=== PATIENT | male | born 1945 | race Caucasian/White ===

== ENCOUNTER 2022-07-27 16:28 | Outpatient (OUT) | payer MEDICARE, SELFPAY ==
[2022-07-27 17:47] LABS: Prostate Specific Antigen Dx 1.04 ng/mL (<=4.00)
== END 2022-07-27 16:29 ==
PROVIDERS: PCP Family Medicine; Visit Provider Urology
DX: N40.1 Benign prostatic hyperplasia with lower urinary tract symptoms (principal)
CPT/HCPCS: 36415; 84153

== ENCOUNTER 2022-07-29 15:24 | Outpatient (OUT) | payer MEDICARE, SELFPAY ==
--- NOTE | 2022-07-29 14:45 | XR_ITS ---
The [address] [address] Patient Name: CLAUDINE AGUILERA MRN: [id number] date: 1945 Sex: M Assigned Patient Location: Current Patient Location: [facility] Accession/Order Number: [id number] Exam Date: 07/29/2022 14:45 Report Date: 07/30/2022 01:38 At the request of: DERRICK BUTLER Procedure: XR abdomen 1V EXAM: XR abdomen 1V 07/29/2022 2:45 PM EDT OH001 CLINICAL STATEMENT: KIDNEY STONE COMPARISON: 07/07/2021 TECHNIQUE: Single abdominal radiograph is submitted. FINDINGS: There is a 3 mm right mid renal calculus. No left-sided renal calculi are identified. The small bowel and colon are not distended. There is a nonobstructive bowel gas pattern. There is no intraperitoneal free air. There is no abnormal calcification or organomegaly detected. Multilevel changes of thoracolumbar spine scoliosis. IMPRESSION: 3 mm right mid renal calculus. No evidence of bowel obstruction or free intraperitoneal air. Electronically authenticated by: KEY HERNANDES Date: 07/30/2022 01:38
== END 2022-07-29 15:25 ==
LOC: RAD 15:25
PROVIDERS: PCP Family Medicine; Visit Provider Urology
DX: N40.1 Benign prostatic hyperplasia with lower urinary tract symptoms (principal); N20.0 Calculus of kidney
CPT/HCPCS: 74018

== ENCOUNTER 2024-02-08 08:10 | Outpatient (OUT) | payer MEDICARE, SELFPAY ==
--- NOTE | 2024-02-08 | NM_ITS ---
Patient Name: CLAUDINE AGUILERA MR#: [id number] : 1945 Exam Date: 02/08/2024 Ordering Doctor: DR JERRY ERICKSON RADIOLOGY REPORT PROCEDURE: NM SANDOVAL PERF SPECT REST STR COMPARISON: None. INDICATIONS: HIGH CHOLESTEROL, EX-SMOKER, SOB, CHEST PAIN TECHNIQUE: Exam Description: Stress/Rest one day protocol gated SPECT Rest Imagin.9 mCi Tc-99m Cardiolite IV on 02/08/2024 Stress Imaging 30.9 mCi Tc-99m Cardiolite IV on 02/08/2024 Exercise Protocol: 0.4 mg Lexiscan given IV Heart Rate (bpm): Rest: 70 Max: 93 PMHR: 64 Blood Pressure: Rest: 130/68 Max: 130/68 Symptoms: Rest and peak stress ECG findings were normal and the exercise portion of the study was normal per attending physician Dr. Clifton . For more details please see separate cardiac stress test report. FINDINGS: QUALITY OF STUDY: Excellent. PERFUSION DEFECT: None. LOCATION: N/A SIZE: N/A. SEVERITY: N/A. TYPE: N/A. WALL MOTION: Normal. LV SIZE: Normal. 56 mL. TID / TCD: None; 0.8 LVEF: Normal. Calculated EF 75%. SUMMARY: Myocardial perfusion imaging study is NORMAL. CONCLUSION: 1. Normal nuclear medicine myocardial perfusion scan. Dictated by: Beto Dietz M.D. on 02/09/2024 at 10:16 Approved by: Beto Dietz M.D. on 02/09/2024 at 10:22
[2024-02-08] MEDS: REGADENOSON 0.4 MG/5 ML SYRINGE IV (10:26)
--- NOTE | 2024-02-08 10:26 | PC.NURSE ---
Nursing Note Cardiac Stress Test Reviewed: Medication, allergies and patient history reviewed. Stress Test: [x ] Patient tolerated stress test well. [ ] Patient unable to tolerate walking on treadmill. Switched to Lexiscan stress test. [ x] No chest pain noted per patient [ ] Chest pain that resolved prior to leaving stress lab. [x ] No dyspnea noted. [ ] Dyspnea that resolved prior to leaving stress lab. [x ] Patient left stress lab asymptomatic and hemodynamically stable. [ ] Patient taken to the Emergency Room due to non-resolving symptoms following stress test. [ ] Patient achieved target heart rate. [ ] Patient unable to achieve target heart rate. [ ] Aminophylline administered as reversal agent to Lexiscan (Regadenoson). [ ] Nitro administered. Nursing Comments:
--- NOTE | 2024-02-09 06:06 | PM.STRESS ---
Stress Test Stress Test Requesting physician: JERRY SAVAGE Procedure: Lexiscan Cardiolite stress test General Information: Reason for Stress Test: Dyspnea Cardiac History and Risk Factors: Hypercholesterolemia, former smoker, unspecified vascular intervention Resting 12 - Lead Electrocardiogram: Baseline artifact. RRR 69. Incomplete RBBB. Stress Test: Protocol: Lexiscan protocol was initiated with injection of 0.4mg Lexiscan IV push followed by Cardiolite. Blood pressure: Initial & maximum: 130/68 Rate & rhythm: Patient remained in sinus rhythm during the exercise and recovery portions of the study.? The maximum heart rate was 93, which was 64% of the maximum predicted heart rate. ST-segments & T-waves: Very poor tracings overall with artifact across many leads. No gross changes noted compared to baseline. Patient response/symptoms: There were no symptoms similar to the chief complaint. Interpretation: Artifcat/poor tracings, but no gross electrocardiographical evidence of ischemia. Asymptomatic of chief complaint. Cardiolite imaging interpretation will be reported separately. Clinical correlation required.?
== END 2024-02-08 08:11 | disposition home or self-care (01) ==
LOC: NM 08:10
PROVIDERS: PCP Family Medicine; Visit Provider Physician Assistant
DX: E78.00 Pure hypercholesterolemia, unspecified (principal); Z87.891 Personal history of nicotine dependence; I25.10 Atherosclerotic heart disease of native coronary artery without angina pectoris; R07.9 Chest pain, unspecified; R06.09 Other forms of dyspnea
CPT/HCPCS: 78452; 93017; A9500; J2785

== ENCOUNTER 2024-10-24 10:38 | Outpatient (OUT) | payer MEDICARE, SELFPAY ==
--- NOTE | 2024-10-24 10:54 | ECG_ITS ---
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: : 1945 Requested By: LUIS RUEDA Order Number: [id number] Reading MD: ESTEPHANIA VELASQUEZ Measurements Intervals [place] Rate: 83 P: 32 IA: 227 QRS: -66 QRSD: 108 T: 27 QT: 357 QTc: 420 Interpretive Statements SINUS RHYTHM WITH FIRST DEGREE AV BLOCK MARKED LEFT AXIS DEVIATION [QRS AXIS < -30] INCOMPLETE RIGHT BUNDLE BRANCH BLOCK [90+ ms QRS DURATION, TERMINAL R IN V1/V2, 40+ ms S IN I/aVL/V4/V5/V6] Compared to ECG 02/28/2019 14:07:32 First degree AV block now present Left-axis deviation now present Incomplete right bundle-branch block now present Indeterminate axis no longer present Electronically Signed On 10-25-2024 13:51:40 EDT by ESTEPHANIA VELASQUEZ
--- NOTE | 2024-10-24 10:54 | XR_ITS ---
The [address] [address] Patient Name: CLAUDINE AGUILERA MRN: [id number] date: 1945 Sex: M [facility]igned [facility] Current Patient Location: [facility] Accession/Order Number: [id number] Exam Date: 10/24/2024 11:45 Report Date: 10/24/2024 12:30 At the request of: LUIS RUEDA MD Procedure: XR chest 2V PA AND LATERAL CHEST: CLINICAL HISTORY: Preoperative clearance COMPARISON: 01/27/2022 Scarring and/or atelectasis is again noted at the lung bases. There is no developing consolidation, effusion or pneumothorax. The cardiac, hilar and mediastinal silhouettes are similar. There is no vascular congestion. The visualized bony thorax is intact. There is dextroscoliotic curvature and endplate spurring. XR/XR chest 2V IMPRESSION: MILD CHRONIC CHANGES. NO ACUTE FINDINGS. Impression dictated by: Tonya Knox M.D. 10/24/2024 12:30 PM Dictation Location: [place] [address] Electronically authenticated by: [id number] Y Date: 10/24/2024 12:30
[2024-10-24 12:04] LABS: Hematocrit 48.6 % (42.0-54.0); Hemoglobin 16.5 g/dL (14.0-18.0); Immature Granulocytes Abs Auto 0.04 10^3/uL (0.00-0.03); Immature Granulocytes Pct Auto 0.3 % (0.0-0.5); Lymphocytes Absolute Auto 1.6 10^3/uL (1.2-3.8); Mean Corpuscular HGB Conc 34.0 g/dL (29.9-35.2); Mean Corpuscular Hemoglobin 32.1 pg (25.9-34.0); Mean Corpuscular Volume 94.6 fL (80.0-94.0); Platelet Count 178 10^3/uL (150-450); Red Blood Count 5.14 10^6/uL (4.70-6.10); White Blood Count 13.7 10^3/uL (4.0-11.0)
[2024-10-24 12:10] LABS: INR 1.06; Partial Thromboplastin Time 27.9 sec (22.3-36.2); Prothrombin Time 11.2 sec (9.0-11.6)
[2024-10-24 12:14] LABS: Anion Gap 13.6; Blood Urea Nitrogen 18.0 mg/dL (7.0-18.0); Calcium 9.5 mg/dL (8.5-10.1); Carbon Dioxide 27.1 mmol/L (21.0-32.0); Chloride 105 mmol/L (98-107); Estimated GFR (African America >60 (>=60 mL/min/1.73m^2); Estimated GFR (Non-African Ame >60 (>=60 mL/min/1.73m^2); Glucose 94 mg/dL (74-106); Potassium 4.7 mmol/L (3.5-5.1); Sodium 141 mmol/L (136-145)
== END 2024-10-24 10:39 | disposition home or self-care (01) ==
LOC: PST 10:39
PROVIDERS: PCP Family Medicine; Visit Provider Surgery
DX: Z01.810 Encounter for preprocedural cardiovascular examination (principal); Z01.812 Encounter for preprocedural laboratory examination; Z01.818 Encounter for other preprocedural examination; K40.90 Unilateral inguinal hernia, without obstruction or gangrene, not specified as recurrent
CPT/HCPCS: 71046; 80048; 85025; 85610; 85730; 93005; G0463

== ENCOUNTER 2024-11-01 08:56 | Day surgery (SDC) | payer MEDICARE, SELFPAY ==
[2024-10-24 11:36] VITALS: BP 118/71; PULSE 95; TEMP 36.6; O2SAT 99; BMI 26.4
--- NOTE | 2024-10-24 11:47 | PM.PRESUREVA ---
History of Present Illness History of Present Illness Chief complaint: RIGHT INGUINAL HERNIA Narrative: Patient presents for presurgical testing. Please see HPI from Dr. Alston dated October 17, 2024. Review of Systems ROS Narrative Please see ROS from Dr. Alston dated October 17, 2024. [facility] Medical History (Updated 10/24/24 @ 11:43 by Jody Hill NP) Syncope ?R55 - Syncope and collapse (ICD-10) Skin cancer ?C44.90 - Unspecified malignant neoplasm of skin, unspecified (ICD-10) Dyspnea on exertion ?R06.09 - Other forms of dyspnea (ICD-10) Arthritis ?M19.90 - Unspecified osteoarthritis, unspecified site (ICD-10) Hypokalemia ?E87.6 - Hypokalemia (ICD-10) Migraine ?G43.909 - Migraine, unspecified, not intractable, without status migrainosus (ICD-10) GERD (gastroesophageal reflux disease) ?K21.9 - Gastro-esophageal reflux disease without esophagitis (ICD-10) Kidney stones ?N20.0 - Calculus of kidney (ICD-10) Epididymo-orchitis ?N45.3 - Epididymo-orchitis (ICD-10) Elevated serum cholesterol ?E78.00 - Pure hypercholesterolemia, unspecified (ICD-10) Diabetes ?E11.9 - Type 2 diabetes mellitus without complications (ICD-10) CAD (coronary artery disease) ?I25.10 - Atherosclerotic heart disease of [place] coronary artery without angina pectoris (ICD-10) BPH (benign prostatic hyperplasia) ?N40.0 - Benign prostatic hyperplasia without lower urinary tract symptoms (ICD-10) Hydrocele ?N43.3 - Hydrocele, unspecified (ICD-10) Benign localized hyperplasia of prostate with urinary obstruction ?N40.1 - Benign prostatic hyperplasia with lower urinary tract symptoms (ICD-10) ?N13.8 - Other obstructive and reflux uropathy (ICD-10) Atrophic testicle ?N50.0 - Atrophy of testis (ICD-10) Asthma ?J45.909 - Unspecified asthma, uncomplicated (ICD-10) Right inguinal hernia ?K40.90 - Unilateral inguinal hernia, without obstruction or gangrene, not specified as recurrent (ICD-10) Surgical History (Updated 10/24/24 @ 11:40 by Jody Hill NP) History of cardiac catheterization ?Z98.890 - Other specified postprocedural states (ICD-10) Hx of tonsillectomy ?Z90.89 - Acquired absence of other organs (ICD-10) H/O left inguinal hernia repair ?Z98.890 - Other specified postprocedural states (ICD-10) ?Z87.19 - Personal history of other diseases of the digestive system (ICD-10) History of extracorporeal shockwave lithotripsy (ESWL) ?Z98.890 - Other specified postprocedural states (ICD-10) H/O colonoscopy ?Z98.890 - Other specified postprocedural states (ICD-10) H/O prostate biopsy ?Z98.890 - Other specified postprocedural states (ICD-10) S/P arthroscopic knee surgery ?Z98.890 - Other specified postprocedural states (ICD-10) History of appendectomy ?Z90.49 - Acquired absence of other specified parts of digestive tract (ICD-10) S/P arterial stent ?Z95.9 - Presence of cardiac and vascular implant and graft, unspecified (ICD-10) H/O cystoscopy ?Z98.890 - Other specified postprocedural states (ICD-10) S/P TURP ?Z90.79 - Acquired absence of other genital organ(s) (ICD-10) Family History (Updated 10/24/24 @ 11:19 by Jody Hill NP) Other Family history of cancer Family history of diabetes mellitus Family history of heart disease Family history of hypertension Family history of myocardial infarction Social History (Updated 10/24/24 @ 11:08 by Jody Hill NP) Within the past year, how often did you have a drink containing alcohol: monthly or less Smoking status: Never smoker Non-prescribed substance use: denies use Highest level of school completed/degree received: high school graduate Meds Home Medications and Allergies Home Medications ?Medication ?Instructions ?Recorded ?Confirmed ?Type atorvastatin 40 mg tablet 40 mg PO DAILY 10/24/24 10/24/24 History dapagliflozin propanediol 10 mg 10 mg PO DAILY 10/24/24 10/24/24 History tablet (Farxiga) multivitamin (Daily Multi-Vitamin 1 tab PO DAILY 10/24/24 10/24/24 History tablet) potassium citrate 15 mEq (1,620 15 meq PO BID 10/24/24 10/24/24 History mg) tablet,extended release Allergies Allergy/AdvReac Type Severity Reaction Status Date / Time No Known Drug Allergies Allergy Verified 10/24/24 11:05 Exam Narrative Exam Narrative: Constitutional: Awake, alert, comfortable, well-appearing, nontoxic, interactive, vital signs as charted Head: Normocephalic, atraumatic Neck: Supple, normal appearance, normal range of motion, no meningeal signs, no lymphadenopathy Respiratory: No respiratory distress, breath sounds clear Cardiovascular: Regular rate and rhythm, strong and regular heart tones Abdomen: Nontender, normal bowel sounds, soft, no CVA tenderness, reducible right inguinal hernia Musculoskeletal: Normal gait, no swelling or edema Skin: No rashes or induration, no lesions, only visible skin inspected Neuro: No neurological deficits, normal sensation Psychiatric: Oriented ?3, normal affect Constitutional Vital Signs, click to edit/add: Last Vital Signs Temp 97.8 F 10/24/24 11:36 Pulse 95 H 10/24/24 11:36 Resp 16 10/24/24 11:36 BP 118/71 10/24/24 11:36 Pulse Ox 99 10/24/24 11:36 O2 Del Method Room Air 10/24/24 11:36 Assessment and Plan Assessment and Plan (1) Right inguinal hernia: Plan Right inguinal hernia repair with mesh scheduled with Dr. Alston November 01, 2024.
--- OUTSIDE RECORDS SUMMARY | 2024-10-25 10:20 | XMS_ITS | Encounter Summary ---
Author Organization [facility] Address [address] [place] [address] Phone Care Team Providers Care Welder Journeyman Name Role Phone Rosalia Ding MD Primary Care Provider [phone] Wesley Alston MD Unavailable [phone] Reason for Referral * Cardiovascular (Routine) - Authorized Specialty Diagnoses / Procedures Referred By Contac t Referred To Contact Diagnoses Pre-operative cardiovascular examination Procedures ECG 12 Lead David Lentz DO [address] [facility] [address] [address] Phone: tel: fax: Referral ID Status Reason Start Date Expiration Date V isits Requested Visits Authorized [id number] Authorized 10/25/2024 10/25/2025 1 1 Reason for Visit * Reason Comments New Patient Visit Pre-op Clearance Hernia [id number] cheduluis 11/01/24 * Cardiovascular (Routine) - Authorized Specialty Diagnoses / Procedures Referred By Contac t Referred To Contact Diagnoses Pre-operative cardiovascular examination Procedures ECG 12 Lead David Lentz DO [address] [facility] [address] [address] Phone: tel: fax: Referral ID Status Reason Start Date Expiration Date V isits Requested Visits Authorized [id number] Authorized 10/25/2024 10/25/2025 1 1 Encounter Details Date Type Department Care Team (Latest Contact Info) Description 10/25/2024 10:20 AM EDT Office Visit [facility] [address] [facility] [address] [place] [address] David Lentz, DO [address] [facility] [address] [place] [address] Hyperlipidemia, unspecified hyperlipidemia type; BMI 26.0-26.9,adult; Former smoker; Pre-operative cardiovascular examination Discharge Disposition: Home Social History Tobacco Use Types Packs/Day Years Used Date Smoking Tobacco: Former Cigarettes Smokeless Tobacco: Never Alcohol Use Standard Drinks/Week Comments Not Currently 0 (1 standard drink = 0.6 oz pur e alcohol) Sex and Gender Information Value Date Recorded Sex Assigned at Not on file Legal Sex Male 2:41 PM EST Gender Identity Not on file Sexual Orientation Not on file documented as of this encounter Last Filed Vital Signs Vital Sign Reading Time Taken Comments Blood Pressure 128/86 10/25/2024 10:36 AM EDT Pulse 90 10/25/2024 10:36 AM EDT Temperature - - Respiratory Rate - - Oxygen Saturation - - Inhaled Oxygen Concentration - - Weight 85.6 kg (188 lb 12.8 oz) 025 10:36 AM EDT Height 180.3 cm (5' 11 ) 10/25/2024 10: 36 AM EDT Body Mass Index 26.33 10/25/2024 10:36 AM EDT documented in this encounter Patient Instructions * Patient Instructions* Kristine Whelan LPN - 10/25/2024 10:20 AM EDT Please bring all medicines, vitamins, and herbal supplements with you when you come to the office. Prescriptions will not be filled unless you are compliant with your follow up appointments or have a follow up appointment scheduled as per instruction of your physician. Refills should be requested at the time of your visit. BMI was above normal measurement. Current weight: 85.6 kg (188 lb 12.8 oz) Weight change since last visit (-) denotes wt loss 188.8 lbs Weight loss needed to achieve BMI 25: 9.9 Lbs Follow up ordered as needed only Weight loss needed to achieve BMI 30: -25.8 Lbs Provided instructions on dietary changes. * Attachments The following attachments cannot be sent through Care Everywhere. * Heart Healthy Diet ([place]) documented in this encounter Progress Notes * David Lentz, DO - 10/25/2024 10:20 AM EDT Cardiology Consultation- New Consult Reason for referral: Preoperative clearance Chief Complaint Patient presents with New Patient Visit Pre-op Clearance Hernia [id number] 11/01/24 HPI: Des Leavitt is a 79 y.o. male seen in cardiology consultation at request of Dr. Alston, for preoperative risk assessment and clearance prior to right inguinal hernia surgery. The surgery itself isexceedingly low risk. Patient has no history of myocardial infarction, revascularization, stroke, thromboembolic or bleeding disorder Patient historically was previously followed by Dr. Valenzuela from 2004 through 2010. He had heartcatheterization and several stress imaging procedures performed during that time. 2006 heart catheterization revealed minimal disease and normal ventricular function. Last myocardial perfusion stresstest at [facility] was performed this past January 2024 and was normal per the report that I have reviewed. Today's ECG demonstrates normal sinus rhythm and incomplete right bundle branch block, is borderline ECG and unchanged from the past Patient presents to anesthesia and general surgery is extremely low risk for major adverse cardiac events. He can follow-up as needed with ourselves Past Medical History: He has no past medical history on file. Surgical History: He has a past surgical history that includes Hernia repair (Left); Appendectomy; Cardiac catheterization; and Colonoscopy. Family History: Family History[1] Social History: Social History Tobacco Use Smoking status: Former Types: Cigarettes Smokeless tobacco: Never Substance Use Topics Alcohol use: Not Currently Allergies: Patient has no known allergies. Current Medications: Current Outpatient Medications Medication Instructions atorvastatin (LIPITOR) 40 mg, Daily RT Farxiga 10 mg, Daily before breakfast multivitamin tablet 1 tablet, Daily potassium citrate CR (Urocit-K-15) 15 mEq ER tablet 15 mEq, 2 times daily (morning and late afternoon) Vitals: Vitals: 10/25/24 1036 BP: 128/86 BP Location: Left arm Patient Position: Sitting Pulse: 90 Weight: 85.6 kg (188 lb 12.8 oz) Height: 1.803 m (5' 11 ) EKG done in office today Review of Systems All other systems reviewed and are negative. Objective Physical Exam Constitutional: Appearance: Normal appearance. HENT: Nose: Nose normal. Neck: Vascular: No carotid bruit. Cardiovascular: Rate and Rhythm: Normal rate. Pulses: Normal pulses. Heart sounds: Normal heart sounds. Pulmonary: Effort: Pulmonary effort is normal. Abdominal: General: Bowel sounds are normal. Palpations: Abdomen is soft. Musculoskeletal: General: Normal range of motion. Cervical back: Normal range of motion. Right lower leg: No edema. Left lower leg: No edema. Skin: General: Skin is warm and dry. Neurological: General: No focal deficit present. Mental Status: He is alert. Psychiatric: Mood and Affect: Mood normal. Behavior: Behavior normal. Thought Content: Thought content normal. Judgment: Judgment normal. Assessment and Plan: 1. Hyperlipidemia, unspecified hyperlipidemia type 2. BMI 26.0-26.9,adult 3. Former smoker 4. Pre-operative cardiovascular examination Scribe Attestation By signing my name below, Kristine Madden LPN , Scribe attest that this documentation has been prepared under the direction and in the presence of Teo Lentz DO. Provider Attestation - Scribe documentation All medical record entries made by the Scribe were at my direction and personally dictated by me. Ihave reviewed the chart and agree that the record accurately reflects my personal performance of the history, physical exam, discussion and plan. [1] Family History Problem Relation Name Age of Onset Heart disease Mother Heart attack Mother Mental illness Sister Heart disease Brother Heart attack Brother documented in this encounter Plan of Treatment Not on file documented as of this encounter Procedures Procedure Name Priority Date/Time Associated Diagnosis Comments ECG 12-LEAD Routine 10/25/2024 10:20 AM EDT Pre-operative cardiovascular examination documented in this encounter Results * ECG 12 Lead (10/25/2024 10:20 AM EDT) Narrative CPACS - 10/25/2024 11:22 AM EDT Normal sinus rhythm, incomplete right bundle branch block, borderline ECG David Lentz DO ECG ORDERABLES Final Resul t CPACS documented in this encounter Visit Diagnoses Diagnosis Hyperlipidemia, unspecified hyperlipidemia type BMI 26.0-26.9,adult Former smoker Personal history of tobacco use, presenting hazards to health Pre-operative cardiovascular examination documented in this encounter Additional Health Concerns Assessment Noted Time A fall risk assessment has been complete d for the patient 10/25/2024 10:36 AM EDT documented as of this encounter Care Teams Welder Journeyman Relationship Specialty Start Date End Date Rosalia Ding MD [address] [facility] [address] [place] [address] PCP - General Family Medicine 10/25/24 Wesley Alston MD [address] [facility] [address] [place] [address] Referring Physician General Surgery 10/25/24 documented as of this encounter
--- OUTSIDE RECORDS SUMMARY | 2024-10-26 11:30 | XMS_ITS | Encounter Summary ---
Author Organization [facility] Address [address] [place] [address] Care Team Providers Care Spa Director/Finance Name Role Phone Rosalia Ding MD Unavailable Rosalia Ding MD Primary Care Provider [phone] Encounter Details Date Type Department Care Team (Late st Contact Info) Description 10/26/2024 11:30 AM EDT [facility] 110 [place] [address] Rosalia Ding MD 112 [facility] 110 [place] [address] Dysuria; Urgency of urination; Hematuria, unspecified type Social History Tobacco Use Types Packs/Day Years Used Date Smoking Tobacco: Never Alcohol Use Standard Drinks/Week Comments Never 0 (1 standard drink = 0.6 oz pur e alcohol) caffeine: no PHQ-2 Answer Date Recorded Patient Health Questionnaire-2 Score 0 06/12/2024 Sex and Gender Information Value Date Recorded Sex Assigned at Not on file Legal Sex Male 6:53 PM EDT Gender Identity Not on file Sexual Orientation Not on file documented as of this encounter Progress Notes * Kalyn Adamson LPN - 10/26/2024 11:30 AM EDT Pt stopped in to give urine sample. He admits to dysuria and urgency. Urine was sent out for culture. documented in this encounter Plan of Treatment Not on file documented as of this encounter Procedures Procedure Name Priority Date/Time Associated Diagnosis Comments POCT URINALYSIS DIPSTICK Routine 10/26/2024 11:39 AM EDT Dysuria Urgency of urination URINARY TRACT INFECTION (HTRX) Routine 10/26/2024 11:38 AM EDT Hematuria, unspecified type documented in this encounter Results * (ABNORMAL) POCT Urinalysis dipstick (10/26/2024 11:39 AM EDT) [facility] Color, UA Marysol Clarity, UA Cloudy Glucose, UA Positive Negative - 1999(110) ++++ mg/dL Comment:1999 Bilirubin, UA Negative Negative - 4(70) +++ mg/dL Ketones, UA Negative Negative - 160(16) ++++ mg/dL Spec Grav, UA 1.020 1 - 1.03 Blood, UA Positive Negative - 50 Edinson/mcL Comment:moderate pH, UA 6.0 5 - 9 Protein, UA Trace Negative - 1999(20) ++++ mg/dL Urobilinogen, UA 1.0 0.2 - 12 mg/dL Leukocytes, UA Trace Negative - 500+++ William/mcL Nitrite, UA Negative Negative - Positive Urine 10/26/2024 11:3 9 AM EDT Rosalia Ding MD POINT OF CARE TEST ENTER/EDIT OR DERABLES Final Result * (ABNORMAL) URINARY TRACT INFECTION (HTRX) (10/26/2024 11:38 AM EDT) [facility] TET B, TET M 25.361(A) 23.000 - 27.500 ppm 10/27/2024 9:02 AM EDT [facility] TET B, TET M Detected(A) 23.000 - 27.500 ppm 10/27/2024 9:02 AM EDT [facility] ACINETOBACTER BAUMANII 0 19.961 - 24.689 ppm 10/27/2024 9:02 AM EDT [facility] ACINETOBACTER BAUMANII Not Detected 19.961 - 24.689 ppm 10/27/2024 9:02 AM EDT [facility] CITROBACTER FREUNDII 0 23.000 - 32.015 ppm 10/27/2024 9:02 AM EDT [facility] CITROBACTER FREUNDII Not Detected 23.000 - 32.015 ppm 10/27/2024 9:02 AM EDT [facility] ENTEROBACTER AEROGENES, CLOACAE 0 23.000 - 32.290 ppm 10/27/2024 9:02 AM EDT [facility] ENTEROBACTER AEROGENES, CLOACAE Not Detected 23.000 - 32.290 ppm 10/27/2024 9:02 AM EDT [facility] ENTEROCOCCUS FAECALIS, FAECIUM 0 26.000 - 33.043 ppm 10/27/2024 9:02 AM EDT [facility] ENTEROCOCCUS FAECALIS, FAECIUM Not Detected 26.000 - 33.043 ppm 10/27/2024 9:02 AM EDT [facility] ESCHERICHIA COLI 0 23.000 - 28.500 ppm 10/27/2024 9:02 AM EDT [facility] ESCHERICHIA COLI Not Detected 23.000 - 28.500 ppm 10/27/2024 9:02 AM EDT [facility] KLEBSIELLA PNEUMONIAE, OXYTOCA 0 23.000 - 31.865 ppm 10/27/2024 9:02 AM EDT [facility] KLEBSIELLA PNEUMONIAE, OXYTOCA Not Detected 23.000 - 31.865 ppm 10/27/2024 9:02 AM EDT [facility] MORGANELLA MORGANII 0 19.961 - 24.689 ppm 10/27/2024 9:02 AM EDT [facility] MORGANELLA MORGANII Not Detected 19.961 - 24.689 ppm 10/27/2024 9:02 AM EDT [facility] PROTEUS MIRABILIS, VULGARIS 0 23.000 - 28.500 ppm 10/27/2024 9:02 AM EDT [facility] PROTEUS MIRABILIS, VULGARIS Not Detected 23.000 - 28.500 ppm 10/27/2024 9:02 AM EDT [facility] PSEUDOMONAS AERUGINOSA 0 23.000 - 31.801 ppm 10/27/2024 9:02 AM EDT [facility] PSEUDOMONAS AERUGINOSA Not Detected 23.000 - 31.801 ppm 10/27/2024 9:02 AM EDT [facility] STAPHYLOCOCCUS AUREUS 0 26.000 - 31.595 ppm 10/27/2024 9:02 AM EDT [facility] STAPHYLOCOCCUS AUREUS Not Detected 26.000 - 31.595 ppm 10/27/2024 9:02 AM EDT [facility] STREPTOCOCCUS AGALACTIAE (GROUP B STREP) 17.001(A) 26.000 - 32.435 ppm 10/27/2024 9:02 AM EDT [facility] STREPTOCOCCUS AGALACTIAE (GROUP B STREP) Detected(A) 26.000 - 32.435 ppm 10/27/2024 9:02 AM EDT [facility] GRAHAM ALBICANS, PARAPSILOSIS, TROPICALIS 0 23.000 - 30.347 ppm 10/27/2024 9:02 AM EDT [facility] GRAHAM ALBICANS, PARAPSILOSIS, TROPICALIS Not Detected 23.000 - 30.347 ppm 10/27/2024 9:02 AM EDT [facility] GRAHAM GLABRATA 0 23.000 - 31.618 ppm 10/27/2024 9:02 AM EDT [facility] GRAHAM GLABRATA Not Detected 23.000 - 31.618 ppm 10/27/2024 9:02 AM EDT [facility] GRAHAM KRUSEI 0 23.000 - 30.873 ppm 10/27/2024 9:02 AM EDT [facility] GRAHAM KRUSEI Not Detected 23.000 - 30.873 ppm 10/27/2024 9:02 AM EDT [facility] SERRATIA MARCESCENS 0 23.000 - 31.581 ppm 10/27/2024 9:02 AM EDT [facility] SERRATIA MARCESCENS Not Detected 23.000 - 31.581 ppm 10/27/2024 9:02 AM EDT [facility] STREPTOCOCCUS PYOGENES (GROUP A STREP) 0 19.961 - 24.689 ppm 10/27/2024 9:02 AM EDT [facility] STREPTOCOCCUS PYOGENES (GROUP A STREP) Not Detected 19.961 - 24.689 ppm 10/27/2024 9:02 AM EDT [facility] STAPHYLOCOCCUS EPIDERMIDIS, HAEMOLYTICUS, LUGDUNENSIS, SAPROPHYTICUS (URINA 0 19.961 - 24.689 ppm 10/27/2024 9:02 AM EDT [facility] STAPHYLOCOCCUS EPIDERMIDIS, HAEMOLYTICUS, LUGDUNENSIS, SAPROPHYTICUS (URINA Not Detected 19.961 - 24.689 ppm 10/27/2024 9:02 AM EDT [facility] STAPHYLOCOCCUS EPIDERMIDIS, HAEMOLYTICUS, LUGDUNENSIS, SAPROPHYTICUS (URINA 0 19.961 - 24.689 ppm 10/27/2024 9:02 AM EDT [facility] STAPHYLOCOCCUS EPIDERMIDIS, HAEMOLYTICUS, LUGDUNENSIS, SAPROPHYTICUS (URINA Not Detected 19.961 - 24.689 ppm 10/27/2024 9:02 AM EDT [facility] Urine 10/26/2024 11:3 8 AM EDT 10/27/2024 2:33 AM EDT us Rosalia Ding MD LAB BLOOD ORDERABLES Final Resul t [facility] [address] [id number] documented in this encounter Visit Diagnoses Diagnosis Dysuria Urgency of urination Hematuria, unspecified type documented in this encounter Care Teams Spa Director/Finance Relationship Specialty Start Date End Date Rosalia Ding MD 112 [facility] 110 [place] [address] PCP - ACO Reach 07/16/22 Rosalia Ding MD [address] [facility] 110 [place] [address] PCP - General Family Medicine 06/30/22 documented as of this encounter
[2024-11-01] VITALS (18 sets, daily range): BP systolic 112–141; BP diastolic 68–93; PULSE 85–97; TEMP 36.4; O2SAT 92–96; BMI 26.0
--- NOTE | 2024-11-01 | OP_ITS ---
OPERATION DATE: 11/01/2024 PREOPERATIVE DIAGNOSIS: Reducible right inguinal hernia. POSTOPERATIVE DIAGNOSIS: Reducible right inguinal hernia with indirect and direct right inguinal hernias. PROCEDURE: Right inguinal herniorrhaphy with mesh insertion. SURGEON: Wesley Alston M.D. ANESTHESIA: General with laryngeal mask airway, as well as right sided TAP block. ESTIMATED BLOOD LOSS: Less than 10 mL. INDICATIONS AND CONSENT: Patient is a 79-year-old male with several year history of reducible right inguinal hernia. He has had a remote history of a left inguinal hernia. Indications, risks, benefits, alternatives of proceeding with herniorrhaphy were explained extensively to the patient, including the risks of bleeding, infection, scarring, pain, nerve injury, testicular injury, recurrent hernia, blood clot, pulmonary embolus, heart attack, anesthetic complications, need for further surgery or mesh removal. All of his questions were answered. Informed consent was obtained. PROCEDURE: Patient brought to the operating room, placed in the supine position. General anesthesia was induced. A right sided TAP block was performed by Anesthesia. The patient was then prepped and draped in the usual sterile fashion. A right groin incision was made in the area of the skin crease, above the area of the external inguinal ring, and carried down through subcutaneous tissue using sharp dissection, as well as electrocautery. Hemostasis was achieved with electrocautery. The external oblique was then opened along the direction of its fibers, down through the external inguinal ring. It was noted to be attenuated. Cord structures were mobilized and retracted. There was noted to be a direct and indirect sac straddling the inferior epigastric vessels, a pantaloon-type hernia. This was freed up from the cord structures and from the vas deferens, all the way up to the upper portion of the internal ring. Both hernias were reduced. The weakness in the floor was then imbricated with interrupted 2-0 Prolene sutures. The wound was irrigated. There was good hemostasis. The polypropylene mesh patch was then placed in the floor of the inguinal canal. The arms were placed around the cord structures and secured circumferentially using interrupted 3-0 Vicryl sutures. Care was taken to avoid undue tension on the cord structures. The wound was irrigated with antibiotic saline. There was good hemostasis. The external oblique was then closed with a running 3-0 Vicryl suture. Subcutaneous tissues were then infiltrated with 0.5% Marcaine plain. Lavern?s fascia was re- approximated with interrupted 3-0 Monocryl suture. The skin was then closed with a running 4-0 subcuticular Monocryl suture as well as skin glue. A sterile pressure dressing was applied. Sponge and needle counts were correct x3 per nursing personnel. Patient tolerated procedure well, was sent to recovery room in good condition. CC: Gabriel Villalobos
--- OUTSIDE RECORDS SUMMARY | 2024-11-01 08:59 | XMS_ITS | Encounter Summary ---
Author Organization [facility] Address [address] [place] [address] Care Team Providers Care Safety Deposit Clerk Name Role Phone Rosalia Ding MD Unavailable Rosalia Ding MD Primary Care Provider [phone] Encounter Details Date Type Department Care Team (Late st Contact Info) Description 09/08/2024 Abstract [facility] [place] [facility] [address] [facility] 110 [place] [address] Rosalia Ding MD [address] [facility] 110 [place] [address] Social History Tobacco Use Types Packs/Day Years [...] on file documented as of this encounter Plan of Treatment Not on file documented as of this encounter Visit Diagnoses Not on filedocumented in this encounter Care Teams Safety Deposit Clerk Relationship Specialty Start Date End Date Rosalia Ding MD [address] [facility] 110 [place] [address] PCP - ACO Reach 07/16/22 Rosalia Ding MD [address] [facility] 110 [place] [address] PCP - General Family Medicine 06/30/22 documented as of this encounter
--- OUTSIDE RECORDS SUMMARY | 2024-11-01 08:59 | XMS_ITS | Encounter Summary ---
Author Organization [facility] Address [address] [place] [address] Care Team Providers Care Floorman Name Role Phone Rosalia Ding MD Unavailable Rosalia Ding MD Primary Care Provider [phone] Encounter Details Date Type Department Care Team (Late st Contact Info) Description 10/27/2024 Telephone [facility] [place] [facility] [address] [facility] 110 [place] [id number] Tonya Argueta PA [address] [facility] [address] [place] [address] Social History Tobacco Use Types Packs/Day Years [...] on file documented as of this encounter Miscellaneous Notes * Telephone Encounter - DRE Katz - 10/27/2024 1:49 PM EDT Called and informed pt. * Telephone Encounter - DRE Katz - 10/27/2024 1:05 PM EDT Please let pt know that his urine culture showed a type of bacteria that Bactrim does not cover well. I sent in an alternative antibiotic for him to start. He can stop the Bactrim. documented in this encounter Plan of Treatment Not on file documented as of this encounter Visit Diagnoses Diagnosis Acute cystitis with hematuria- Primary documented in this encounter Care Teams Floorman Relationship Specialty Start Date End Date Rosalia Ding MD 112 [facility] 110 [place] [address] PCP - ACO Reach 07/16/22 Rosalia Ding MD 112 [facility] 110 [place] [address] PCP - General Family Medicine 06/30/22 documented as of this encounter
--- OUTSIDE RECORDS SUMMARY | 2024-11-01 08:59 | XMS_ITS | Encounter Summary ---
Author Organization [facility] Address [address] [place] [address] Care Team Providers Care Global Program Manager Name Role Phone Rosalia Ding MD Unavailable Rosalia Ding MD Primary Care Provider [phone] Encounter Details Date Type Department Care Team (Late st Contact Info) Description 06/12/2024 Abstract [facility] [place] [facility] [address] [place] [address] [place] [address] Rosalia Ding MD [address] [facility] [address] [place] [address] Social History Tobacco Use Types Packs/Day Years [...] on file documented as of this encounter Functional Status * Over the past 2 weeks, how often have you been bothered by any of the following problems? Question Answer Date of Assessment Author Little interest or pleasure in doing things Not at all 06/12/2024 9:00 AM EDT Dorothy Ibarra MA Feeling down, depressed, or hopeless Not at all 06/12/2024 9:00 AM EDT Dorothy Ibarra MA Patient Health Questionnaire -2 Score 0 06/12/2024 9:00 AM EDT Dorothy Ibarra MA documented as of this encounter Plan of Treatment Not on file documented as of this encounter Visit Diagnoses Not on filedocumented in this encounter Care Teams Global Program Manager Relationship Specialty Start Date End Date Rosalia Ding MD 112 [facility] 110 [place] [address] PCP - ACO Reach 07/16/22 Rosalia Ding MD [address] [address] PCP - General Family Medicine 06/30/22 documented as of this encounter
--- OUTSIDE RECORDS SUMMARY | 2024-11-01 08:59 | XMS_ITS | Encounter Summary ---
Author Organization [facility] Address [address] [place] [address] Care Team Providers Care Account Adjuster Name Role Phone Rosalia Ding MD Unavailable Rosalia Ding MD Primary Care Provider [phone] Encounter Details Date Type Department Care Team (Late st Contact Info) Description 07/30/2022 Abstract [facility] [place] [facility] [address] [facility] 110 [place] [address] Rosalia Ding MD [address] [facility] 110 [place] [address] Social History Tobacco Use Types Packs/Day Years Used Date Smoking Tobacco: Never Assessed Sex and Gender Information Value Date Recorded Sex Assigned at Not on file Legal Sex Male 6:53 PM EDT Gender Identity Not on file Sexual Orientation Not on file documented as of this encounter Plan of Treatment Not on file documented as of this encounter Visit Diagnoses Not on filedocumented in this encounter Care Teams Account Adjuster Relationship Specialty Start Date End Date Rosalia Ding MD [address] [facility] 110 [place] [address] PCP - ACO Reach 07/16/22 Rosalia Ding MD [address] [facility] 110 [place] [address] PCP - General Family Medicine 06/30/22 documented as of this encounter
--- OUTSIDE RECORDS SUMMARY | 2024-11-01 08:59 | XMS_ITS | Encounter Summary ---
Author Organization [facility] Address [address] [place] [address] Care Team Providers Care Bromination Equipment Operator Name Role Phone Rosalia Ding MD Unavailable Rosalia Ding MD Primary Care Provider [phone] Encounter Details Date Type Department Care Team (Late st Contact Info) Description 02/17/2023 Orders Only [facility] [place] [facility] [address] [facility] 110 [place] [address] Dorothy Ibarra MA Social History Tobacco Use Types Packs/Day Years [...] on filedocumented in this encounter Care Teams Bromination Equipment Operator Relationship Specialty Start Date End Date Rosalia Ding MD [address] [facility] 110 [place] [address] PCP - ACO Reach 07/16/22 Rosalia Ding MD [address] [facility] 110 [place], [place] [address] PCP - General Family Medicine 06/30/22 documented as of this encounter
--- OUTSIDE RECORDS SUMMARY | 2024-11-01 08:59 | XMS_ITS | Encounter Summary ---
Author Organization [facility] Address [address] [place] [address] Care Team Providers Care Drag Car Racer Name Role Phone Rosalia Ding MD Unavailable Rosalia Ding MD Primary Care Provider [phone] Encounter Details Date Type Department Care Team (Late st Contact Info) Description 10/25/2024 Abstract [facility] [place] [facility] [address] [facility] 110 [place] [address] Rosalia Ding MD [address] [facility] 110 [place] [address] Social History Tobacco Use Types Packs/Day Years [...] on filedocumented in this encounter Care Teams Drag Car Racer Relationship Specialty Start Date End Date Rosalia Ding MD [address] [facility] 110 [place] [address] PCP - ACO Reach 07/16/22 Rosalia Ding MD [address] [facility] 110 [place] [address] PCP - General Family Medicine 06/30/22 documented as of this encounter
--- OUTSIDE RECORDS SUMMARY | 2024-11-01 08:59 | XMS_ITS | Encounter Summary ---
Author Organization [facility] Address [address] [place] [address] Care Team Providers Care Taxicab Driver Name Role Phone Rosalia Ding MD Unavailable Rosalia Ding MD Primary Care Provider [phone] Encounter Details Date Type Department Care Team (Late st Contact Info) Description 10/24/2024 Clinisync Result Encounter [facility] External Department Unsolicited Provider, Generic External Data Social History Tobacco Use Types Packs/Day Years [...] Procedure Name Priority Date/Time Associated Diagnosis Comments ALL CBC WITH AUTO DIFF Routine 10/24/2024 11:38 AM EDT ALL BASIC METABOLIC PANEL Routine 10/24/2024 11:38 AM EDT documented in this encounter Results * ALL BASIC METABOLIC PANEL (10/24/2024 11:38 AM EDT) SODIUM 141 136 - 145 mmol/L [facility] POTASSIUM 4.7 3.5 - 5.1 mmol/L [facility] CHLORIDE 105 98 - 107 mmol/L [facility] CARBON DIOXIDE 27.1 21.0 - 32.0 mmol/L [facility] ANION GAP 13.6 [facility] GLUCOSE 94 74 - 106 mg/dL [facility] BLOOD UREA NITROGEN 18.0 7.0 - 18.0 mg/dL [facility] CREATININE 1.05 0.70 - 1.30 mg/dL [facility] TBH EGFR-AF [place] >60 >=60 mL/min/1.7 3m 2 TBH TBH EGFR-NON AF [place] >60 >=60 mL/min/1.7 3m 2 [facility] BUN CREATININE RATIO 17.1 [facility] CALCIUM 9.5 8.5 - 10.1 mg/dL [facility] 10/24/2024 11:3 8 AM EDT 10/24/2024 11:40 AM EDT Narrative [facility] - 10/24/2024 12:20 PM EDT us Generic External Data Provider [facility] F inal Result [facility] * (ABNORMAL) ALL CBC WITH AUTO DIFF (10/24/2024 11:38 AM EDT) [facility] WBC 13.7(H) 4.0 - 11.0 10 3/uL TBH TBH RBC 5.14 4.70 - 6.10 10 6/uL TBH TBH HGB 16.5 14.0 - 18.0 g/dL TBH TBH HCT 48.6 42.0 - 54.0 % TBH TBH MCV 94.6(H) 80.0 - 94.0 fL TBH TBH MCH 32.1 25.9 - 34.0 pg TBH TBH MCHC 34.0 29.9 - 35.2 g/dL TBH TBH RDW 13.2 11.0 - 15.0 % TBH TBH PLT 178 150 - 450 10 3/uL TBH TBH MPV 9.8 9.5 - 13.5 fL TBH NEUTROPHILS PERCENT AUTO 80.8(H) 43.0 - 75.0 % [facility] LYMPHOCYTES PERCENT AUTO 11.5(L) 20.5 - 60.0 % [facility] MONOCYTES PERCENT AUTO 6.6 1.7 - 12.0 % TBH TBH EO % 0.4(L) 0.9 - 7.0 % [facility] BASOPHILS PERCENT AUTO 0.4 0.2 - 2.0 % [facility] IMMATURE GRANULOCYTES PCT AUTO 0.3 0.0 - 0.5 % [facility] NEUTROPHILS ABSOLUTE AUTO 11.1(H) 1.4 - 6.5 10 3/uL [facility] LYMPHOCYTES ABSOLUTE AUTO 1.6 1.2 - 3.8 10 3/uL TB[facility] MONOCYTES ABSOLUTE AUTO 0.9(H) 0.3 - 0.8 10 3/uL TBH TBH EO # 0.1 0.0 - 0.7 10 3/uL TBH BASOPHILS ABSOLUTE AUTO 0.1 0.0 - 0.1 10 3/uL [facility] IMMATURE GRANULOCYTES ABS AUTO 0.04(H) 0.00 - 0.03 10 3/uL [facility] 10/24/2024 11:3 8 AM EDT 10/24/2024 11:40 AM EDT Narrative [facility] - 10/24/2024 12:10 PM EDT us Generic External Data Provider [facility] F inal Result Performing Organization Address City/State/[facility] Co de Phone Number [facility] documented in this encounter Visit Diagnoses Not on filedocumented in this encounter Care Teams Taxicab Driver Relationship Specialty Start Date End Date Rosalia Ding MD [address] [facility] 110 [place] [address] PCP - ACO Reach 07/16/22 Rosalia Ding MD [address] [facility] 110 [place] [address] PCP - General Family Medicine 06/30/22 documented as of this encounter
--- OUTSIDE RECORDS SUMMARY | 2024-11-01 08:59 | XMS_ITS | Encounter Summary ---
Author Organization [facility] Address [address] [place] [address] Care Team Providers Care International Accounting Manager Name Role Phone Rosalia Ding MD Unavailable Rosalia Ding MD Primary Care Provider [phone] Encounter Details Date Type Department Care Team (Late st Contact Info) Description 07/30/2022 Orders Only [facility] [place] [facility] [address] [place] [address] [place] [phone] Rosalia Ding MD [address] [facility] [address] [place] [address] Social History Tobacco Use Types Packs/Day Years [...] Procedure Name Priority Date/Time Associated Diagnosis Comments XR ABDOMEN 1 VIEW Routine 07/29/2022 8:09 AM EDT documented in this encounter Results * XR abdomen 1 view (07/29/2022 8:09 AM EDT) Anatomical Region Laterality Modality Abdomen Radiographic Alva ging Rosalia Ding MD IMG XR PROCEDURES Final Result documented in this encounter Visit Diagnoses Not on filedocumented in this encounter Care Teams International Accounting Manager Relationship Specialty Start Date End Date Rosalia Ding MD [address] [facility] [address] [place] [address] PCP - ACO Reach 07/16/22 Rosalia Ding MD 112 [facility] 110 [place] [address] PCP - General Family Medicine 06/30/22 documented as of this encounter
--- OUTSIDE RECORDS SUMMARY | 2024-11-01 08:59 | XMS_ITS | Encounter Summary ---
Author Organization [facility] Address [address] [place] [address] Care Team Providers Care Home Demonstration Agent Name Role Phone Rosalia Ding MD Unavailable Rosalia Ding MD Primary Care Provider [phone] Encounter Details Date Type Department Care Team (Late st Contact Info) Description 10/26/2024 Telephone [facility] [place] [facility] [address] [place] [address] [place] [phone] Kalyn Adamson LPN [address] [place] [address] Social History Tobacco Use Types Packs/Day Years [...] encounter Miscellaneous Notes * Telephone Encounter - Dorothy Ibarra MA - 10/26/2024 3:18 PM EDT Pt notified * Telephone Encounter - Kalyn Adamson LPN - 10/26/2024 11:42 AM EDT Pt stopped in for urine dipstick. Please see nurse visit note from today. I did send his urine for culture also. documented in this encounter Plan of Treatment Not on file documented as of this encounter Visit Diagnoses Diagnosis Acute cystitis without hematuria- Primary documented in this encounter Care Teams Home Demonstration Agent Relationship Specialty Start Date End Date Rosalia Ding MD 112 [facility] 110 [place] [address] PCP - ACO Reach 07/16/22 Rosalia Ding MD 112 [facility] 110 [place] [address] PCP - General Family Medicine 06/30/22 documented as of this encounter
--- OUTSIDE RECORDS SUMMARY | 2024-11-01 08:59 | XMS_ITS | Encounter Summary ---
Author Organization [facility] Address [address] [place] [address] Care Team Providers Care Motor Pool Clerk Name Role Phone Rosalia Ding MD Unavailable Rosalia Ding MD Primary Care Provider [phone] Encounter Details Date Type Department Care Team (Latest Contact Info) Description 10/26/2024 Travel Social History Tobacco Use Types Packs/Day Years [...] on filedocumented in this encounter Care Teams Motor Pool Clerk Relationship Specialty Start Date End Date Rosalia Ding MD [address] [facility] 110 [place] [address] PCP - ACO Reach 07/16/22 Rosalia Ding MD [address] [facility] 110 [place] [address] PCP - General Family Medicine 06/30/22 documented as of this encounter
--- OUTSIDE RECORDS SUMMARY | 2024-11-01 08:59 | XMS_ITS | Encounter Summary ---
Author Organization [facility] Address [address] [place] [address] Care Team Providers Care Child & Adolescent Psychiatrist Name Role Phone Rosalia Ding MD Unavailable Rosalia Ding MD Primary Care Provider [phone] Encounter Details Date Type Department Care Team (Late st Contact Info) Description 10/17/2024 Abstract [facility] [place] [facility] [address] [facility] 110 [place] [address] Rosaila Ding MD [address] [facility] 110 [place] [address] Social History Tobacco Use Types Packs/Day Years [...] on filedocumented in this encounter Care Teams Child & Adolescent Psychiatrist Relationship Specialty Start Date End Date Rosalia Ding MD [address] [facility] 110 [place] [address] PCP - ACO Reach 07/16/22 Rosalia Ding MD [address] [facility] 110 [place] [address] PCP - General Family Medicine 06/30/22 documented as of this encounter
--- OUTSIDE RECORDS SUMMARY | 2024-11-01 08:59 | XMS_ITS | Encounter Summary ---
Author Organization [facility] Address [address] [place] [address] Care Team Providers Care Bilingual Loan Processor Name Role Phone Rosalia Ding MD Unavailable Rosalia Ding MD Primary Care Provider [phone] Encounter Details Date Type Department Care Team (Late st Contact Info) Description 02/09/2024 Abstract [facility] [place] [facility] [address] [facility] 110 [place] [address] Rosalia Ding MD [address] [facility] 110 [place] [address] Social History Tobacco Use Types Packs/Day Years Used Date Smoking Tobacco: Never Alcohol Use Standard Drinks/Week Comments Never 0 (1 standard drink = 0.6 oz pur e alcohol) caffeine: no PHQ-2 Answer Date Recorded Patient Health Questionnaire-2 Score 0 04/26/2023 Sex and Gender Information Value Date Recorded Sex Assigned at Not on file Legal Sex Male 6:53 PM EDT Gender Identity Not on file Sexual Orientation Not on file documented as of this encounter Plan of Treatment Not on file documented as of this encounter Visit Diagnoses Not on filedocumented in this encounter Care Teams Bilingual Loan Processor Relationship Specialty Start Date End Date Rosalia Ding MD [address] [facility] [address] [place] [address] PCP - ACO Reach 07/16/22 Rosalia Ding MD [address] [facility] 110 [place] [address] PCP - General Family Medicine 06/30/22 documented as of this encounter
--- OUTSIDE RECORDS SUMMARY | 2024-11-01 08:59 | XMS_ITS | Encounter Summary ---
Author Organization [facility] Address [address] [place] [address] Care Team Providers Care Mail Sorter And Delivery Name Role Phone Rosalia Ding MD Unavailable Rosalia Ding MD Primary Care Provider [phone] Encounter Details Date Type Department Care Team [...] Priority Date/Time Associated Diagnosis Comments ECG 12-LEAD 10/24/2024 9:32 AM EDT documented in this encounter Results * ECG 12-LEAD (10/24/2024 9:32 AM EDT) Anatomical Region Laterality Modality Other 10/24/2024 9:32 AM EDT Narrative 10/25/2024 1:51 PM EDT The [address] [address] Electrocardiograph Report Signed Patient: CLAUDINE AGUILERA MR#: [id number] : 1945 Acct:[id number] Age/Sex: 79 / M ADM Date: 10/24/24 Loc: PST Attending Dr: Wesley Alston M.D. Ordering Physician: Wesley Alston M.D. Date of Service: 10/24/24 Procedure(s): ECG 12 lead Accession Number(s): [id number] cc: The [facility] Test Date: 2024-10-24 Pat Name: CLAUDINE AGUILERA Department: Room: - Gender: Male Senior Capital Markets Specialist: : 1945 Requested By: WESLEY ALSTON Order Number: [id number] [place] MD: ESTEPHANIA SAM Measurements Intervals [place] Rate: 83 P: 32 WA: 227 QRS: -66 QRSD: 108 T: 27 QT: 357 QTc: 420 Interpretive Statements SINUS RHYTHM WITH FIRST DEGREE AV BLOCK MARKED LEFT AXIS DEVIATION [QRS AXIS < -30] INCOMPLETE RIGHT BUNDLE BRANCH BLOCK [90+ ms QRS DURATION, TERMINAL R IN V1/V2, 40+ ms S IN I/aVL/V4/V5/V6] Compared to ECG 02/28/2019 14:07:32 First degree AV block now present Left-axis deviation now present Incomplete right bundle-branch block now present Indeterminate axis no longer present Electronically Signed On 10-25-2024 13:51:40 EDT by ESTEPHANIA SAM Dictated By: Estephania Sam M.D. Signed By: 10/25/24 1351 DD/ 0932 TD/TT: Subway Train Operator: Procedure Note Radiology, Radiologist, MD - 10/25/2024 [place] [address] Electrocardiograph Report Signed Patient: CLAUDINE AGUILERA RMR#: [id number] : 8Acct:[id number] Age/Sex: 79 / MADM Date: 10/24/24 Loc: PST Attending Dr: Wesley Alston M.D. Ordering Physician: Wesley Alston M.D. Date of Service: 10/24/24 Procedure(s): ECG 12 lead Accession Number(s): [id number] cc: [facility] Test Date: 2024-10-24 Pat Name: CLAUDINE AGUILERA Department: Room: - Gender: Male Senior Capital Markets Specialist: : 1945 Requested By: WESLEY ALSTON Order Number: [id number] [place] MD: ESTEPHANIA SAM Measurements Intervals [place] Rate: 83 P: 32 WA: 227 QRS: -66 QRSD: 108 T: 27 QT: 357 QTc: 420 Interpretive Statements SINUS RHYTHM WITH FIRST DEGREE AV BLOCK MARKED LEFT AXIS DEVIATION [QRS AXIS < -30] INCOMPLETE RIGHT BUNDLE BRANCH BLOCK [90+ ms QRS DURATION, TERMINAL R IN V1/V2, 40+ ms S IN I/aVL/V4/V5/V6] Compared to ECG 02/28/2019 14:07:32 First degree AV block now present Left-axis deviation now present Incomplete right bundle-branch block now present Indeterminate axis no longer present Electronically Signed On 10-25-2024 13:51:40 EDT by ESTEPHANIA SAM Dictated By: Estephania Sam M.D. Signed By:10/25/24 1351 DD/ 0932 TD/TT: Subway Train Operator: Generic External Data Provider [facility] Final Result documented in this encounter Visit Diagnoses Not on filedocumented in this encounter Care Teams Mail Sorter And Delivery Relationship Specialty Start Date End Date Rosalia Ding MD [address] [facility] 110 [place] [address] PCP - ACO Reach 07/16/22 Rosalia Ding MD [address] [facility] 110 [place] [address] PCP - General Family Medicine 06/30/22 documented as of this encounter
--- OUTSIDE RECORDS SUMMARY | 2024-11-01 08:59 | XMS_ITS | Encounter Summary ---
Author Organization [facility] Address [address] [place] [address] Care Team Providers Care Occupational Therapist Assistant Name Role Phone Rosalia Ding MD Unavailable Rosalia Ding MD Primary Care Provider [phone] Encounter Details Date Type Department Care Team (Late st Contact Info) Description 02/09/2024 Abstract [facility] [place] [facility] [address] [facility] 110 [place] [address] Rosalia Ding MD [address] [facility] 110 [place] [address] Social History Tobacco Use Types Packs/Day Years [...] on filedocumented in this encounter Care Teams Occupational Therapist Assistant Relationship Specialty Start Date End Date Rosalia Ding MD [address] [facility] 110 [place] [address] PCP - ACO Reach 07/16/22 Rosalia Ding MD [address] [facility] 110 [place] [address] PCP - General Family Medicine 06/30/22 documented as of this encounter
--- OUTSIDE RECORDS SUMMARY | 2024-11-01 08:59 | XMS_ITS | Encounter Summary ---
Author Organization [facility] Address [address] [place] [address] Care Team Providers Care Director Automotive Name Role Phone Rosalia Ding MD Unavailable Rosalia Ding MD Primary Care Provider [phone] Reason for Visit * Reason Comments Med Change Request Encounter Details Date Type Department Care Team ([facility] st Contact Info) Description 10/01/2022 Refill [facility] [place] [facility] [address] [facility] 110 [place] [address] Rosalia Ding MD [address] [facility] 110 [place] [address] Leg cramps Social History Tobacco Use Types Packs/Day Years Used Date Smoking Tobacco: Never Assessed Sex and Gender Information Value Date Recorded Sex Assigned at Not on file Legal Sex Male 6:53 PM EDT Gender Identity Not on file Sexual Orientation Not on file documented as of this encounter Miscellaneous Notes * Telephone Encounter - DRE Katz - 10/01/2022 11:00 AM EDT Please let pt know that his insurance will not cover this medication. If he wishes to continue it he will need to pay for it out of pocket. * Telephone Encounter - Dorothy Ibarra MA - 10/01/2022 10:34 AM EDT Pt ins denied this medication due to the reason is not FDA approved , on paperwork it stated cramp and spasm , the dx used was leg cramps please advise documented in this encounter Plan of Treatment Not on file documented as of this encounter Visit Diagnoses Diagnosis Leg cramps Cramp of limb documented in this encounter Care Teams Director Automotive Relationship Specialty Start Date End Date Rosalia Ding MD 112 [facility] 110 [place] [address] PCP - ACO Reach 07/16/22 Rosalia Ding MD 112 [facility] 110 [place] [address] PCP - General Family Medicine 06/30/22 documented as of this encounter
--- OUTSIDE RECORDS SUMMARY | 2024-11-01 08:59 | XMS_ITS | Encounter Summary ---
Author Organization [facility] Address [address] [place] [address] Care Team Providers Care Production Clerks Supervisor Name Role Phone Rosalia Ding MD Unavailable Rosalia Ding MD Primary Care Provider [phone] Encounter Details Date Type Department Care Team (Late st Contact Info) Description 10/27/2024 Abstract [facility] [place] [facility] [address] [facility] 110 [place] [address] Rosalia Ding MD [address] [facility] 110 [place] [address] Social History Tobacco Use Types Packs/Day Years [...] on filedocumented in this encounter Care Teams Production Clerks Supervisor Relationship Specialty Start Date End Date Rosalia Ding MD [address] [facility] 110 [place] [address] PCP - ACO Reach 07/16/22 Rosalia Ding MD [address] [facility] 110 [place] [address] PCP - General Family Medicine 06/30/22 documented as of this encounter
--- OUTSIDE RECORDS SUMMARY | 2024-11-01 08:59 | XMS_ITS | Encounter Summary ---
Author Organization [facility] Address [address] [place] [address] Care Team Providers Care Gun Stock Maker Name Role Phone Rosalia Raymundo MD Unavailable Rosalia Raymundo MD Primary Care Provider [phone] Encounter Details Date Type Department Care Team [...] Name Priority Date/Time Associated Diagnosis Comments XR CHEST 2V 10/24/2024 12:30 PM EDT [facility] PROTHROMBIN TIME INR W/O COUM Routine 10/24/2024 11:38 AM EDT [facility] APTT Routine 10/24/2024 11:38 AM EDT documented in this encounter Results * XR CHEST 2V (10/24/2024 12:30 PM EDT) Anatomical Region Laterality Modality Other 10/24/2024 12:3 0 PM EDT Narrative 10/24/2024 12:33 PM EDT The [address] [address] XRay Report Signed Patient: CLAUDINE AGUILERA MR#: [id number] : 1945 Acct:[id number] Age/Sex: 79 / M ADM Date: 10/24/24 Loc: [facility] Attending Dr: Wesley Alston M.D. Ordering Physician: Wesley Alston M.D. Date of Service: 10/24/24 Procedure(s): XR chest 2V Accession Number(s): [id number] cc: ROSALIA RAYMUNDO ; Wesley Alston M.D. The [address] [address] Patient Name: CLAUDINE AGUILERA MRN: [id number] date: 1945 Sex: M [facility]igned [email or web address] Current Patient Location: [facility] Accession/Order Number: [id number] Exam Date: 10/24/2024 11:45 Report Date: 10/24/2024 12:30 At the request of: WESLEY ALSTON MD Procedure: XR chest 2V PA AND LATERAL CHEST: CLINICAL HISTORY: Preoperative clearance COMPARISON: 01/27/2022 Scarring and/or atelectasis is again noted at the lung bases. There is no developing consolidation, effusion or pneumothorax. The cardiac, hilar and mediastinal silhouettes are similar. There is no vascular congestion. The visualized bony thorax is intact. There is dextroscoliotic curvature and endplate spurring. XR/XR chest 2V IMPRESSION: MILD CHRONIC CHANGES. NO ACUTE FINDINGS. Impression dictated by: Tonya Knox M.D. 10/24/2024 12:30 PM Dictation Location: [place] [address] Electronically authenticated by: [id number] Y Date: 10/24/2024 12:30 Dictated By: Tonya Knox M.D. Signed By: 10/24/24 1233 DD/ 1230 TD/TT: School Director: Procedure Note Radiology, Radiologist, - 10/24/[address] [address] XRay Report Signed Patient: CLAUDINE AGUILERA RMR#: [id number] : 1945cct:[id number] Age/Sex: 79 / MADM Date: 10/24/24 Loc: PST Attending Dr: Wesley Alston M.D. Ordering Physician: Wesley Alston M.D. Date of Service: 10/24/24 Procedure(s): XR chest 2V Accession Number(s): [id number] cc: ROSALIA RAYMUNDO ; Wesley Alston M.D. [place] [id number] Patient Name: CLAUDINE AGUILERA MRN: [id number] date: 1945 Sex: M Assigned Patient Location: [facility] Current Patient Location: [facility] Accession/Order Number: [id number] Exam Date: 10/24/2024 11:45 Report Date: 10/24/2024 12:30 At the request of: WESLEY ALSTON MD Procedure: XR chest 2V PA AND LATERAL CHEST: CLINICAL HISTORY: Preoperative clearance COMPARISON: 01/27/2022 Scarring and/or atelectasis is again noted at the lung bases. There is no developing consolidation, effusion or pneumothorax. The cardiac, hilarand mediastinal silhouettes are similar. There is no vascular congestion.The visualized bony thorax is intact. There is dextroscoliotic curvature and endplate spurring. XR/XR chest 2V IMPRESSION: MILD CHRONIC CHANGES. NO ACUTE FINDINGS. Impression dictated by: Tonya Knox M.D. 10/24/2024 12:30 PM Dictation Location: [place] [address] Electronically authenticated by: [id number] Y Date: 2:30 Dictated By: Tonya Knox M.D. Signed By:10/24/24 1233 DD/ 1230 TD/TT: School Director: us Generic External Data Provider [facility] Final Result * [facility] APTT (10/24/2024 11:38 AM EDT) PARTIAL THROMBOPLASTIN TIME 27.9 22.3 - 36.2 sec [facility] 10/24/2024 11:3 8 AM EDT 10/24/2024 11:40 AM EDT Narrative [facility] - 10/24/2024 12:35 PM EDT Generic External Data Provider [facility] F inal Result Performing Organization Address City/[facility]/ZIP Co de Phone Number [facility] * [facility] PROTHROMBIN TIME INR W/O COUM (10/24/2024 11:38 AM EDT) PROTHROMBIN TIME 11.2 9.0 - 11.6 sec TBH [facility] INR 1.06 [facility] Comment: DESIRED INR: 2.0-3.0 CONDITIONS NOT LISTED BELOW 2.5-3.5 FOR PROSTHETIC HEART VALVE REPLACEMENT 2.5-3.5 RECURRENT THROMBOSIS 10/24/2024 11:3 8 AM EDT 10/24/2024 11:40 AM EDT Narrative [facility] - 10/24/2024 12:35 PM EDT Generic External Data Provider [facility] F inal Result Performing Organization Address [facility] Co de Phone Number [facility] documented in this encounter Visit Diagnoses Not on filedocumented in this encounter Care Teams Gun Stock Maker Relationship Specialty Start Date End Date Rosalia Raymundo MD [address] [facility] 110 [place] [address] PCP - ACO Reach 07/16/22 Rosalia Raymundo MD [address] [facility] 110 [place] [address] PCP - General Family Medicine 06/30/22 documented as of this encounter
--- OUTSIDE RECORDS SUMMARY | 2024-11-01 08:59 | XMS_ITS | Encounter Summary ---
Author Organization [facility] Address [address] [place] [address] Care Team Providers Care Corporate Travel Coordinator Name Role Phone Rosalia Ding MD Unavailable Rosalia Ding MD Primary Care Provider [phone] Encounter Details Date Type Department Care Team (Late st Contact Info) Description 10/06/2022 Abstract [facility] [place] [facility] [address] [facility] 110 [place] [address] Rosalia Ding MD [address] [facility] 110 [place] [address] Social History Tobacco Use Types Packs/Day Years [...] on filedocumented in this encounter Care Teams Corporate Travel Coordinator Relationship Specialty Start Date End Date Rosalia Ding MD [address] [facility] 110 [place] [address] PCP - ACO Reach 07/16/22 Rosalia Ding MD [address] [facility] 110 [place] [address] PCP - General Family Medicine 06/30/22 documented as of this encounter
--- OUTSIDE RECORDS SUMMARY | 2024-11-01 08:59 | XMS_ITS | Clinical Summary ---
Author Organization [facility] Healthcare Address [address] [place] [address] Care Team Providers Care Neurosurgery Spine Physician Name Role Phone Rosalia Raymundo MD Unavailable Rosalia Raymundo MD Primary Care Provider [phone] Allergies No known active allergies Medications Multiple Vitamin (MULTI VITAMIN DAILY PO) Take 1 tablet by mouth 1 (one) time each day 07/30/19 23 Active dapagliflozin (Farxiga) 10 MGIndications:H igh cholesterol Take 1 tablet (10 mg) by mouth in the morning. 30 tablet 11 02/11/20 24 Active potassium citrate CR (Urocit-K-15) 15 mEq ER tabletIndicatio ns:Calculus of kidney TAKE 1 TABLET (15 MEQ) BY MOUTH IN THE MORNING AND 1 TABLET (15 MEQ) BEFORE BEDTIME 180 tablet 1 09/12/19 25 Active atorvastatin (Lipitor) 40 MG tabletIndicatio ns:High cholesterol TAKE 1 TABLET BY MOUTH EVERY DAY 100 tablet 3 10/13/19 25 Active cephalexin (Keflex) 500 MG capsuleIndicati ons:Acute cystitis with hematuria Take 1 capsule (500 mg) by mouth in the morning and 1 capsule (500 mg) before bedtime. Do all this for 7 days. 14 capsule 10/28/19 25 025 Active atorvastatin (Lipitor) 40 MG tabletIndicatio ns:High cholesterol TAKE 1 TABLET BY MOUTH EVERY DAY 90 tablet 4 09/27/19 24 025 Discontinued sulfamethoxazol e-trimethoprim (Bactrim DS) 800-160 MG per tabletIndicatio ns:Acute cystitis without hematuria Take 1 tablet by mouth in the morning and 1 tablet before bedtime. Do all this for 10 days. 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 Reviewed poissble complications of diabetes including, loss of vision, kidney failure and increased risk of heart attacks and stroke. We made recommendations on how to control your blood sugars, and minimize your risk of these complications. We discussed your current barriers to a healthy living and importance of healthy diet and exercise. Coronary artery disease invo lving [place] coronary artery of [place] heart without angina pectoris 04/26/2023 Assessment & Plan (04/26/2023 3:11 PM EST): No current CP Continue current meds Right inguinal hernia 03/11/2023 Anticoagulant long-term use 02/16/2023 Arthritis 02/16/2023 Atrophic testicle 02/16/2023 Bilateral hydrocele 02/16/2023 Epididymo-orchitis 02/16/2023 Ex-smoker 02/16/2023 History of kidney stones 02/16/2023 Medicare annual wellness visit, subsequent 02/16 Assessment & Plan (06/12/2024 9:37 AM EDT): Colonoscopy every 10 years or Cologuard every 3 years ages 50-75 Flu Vaccine yearly Pneumovax and Prevnar Mammo yearly for women and PSA yearly for men Labs/Screening yearly to rule out Diabetes, Chronic Kidney disease and liver disease Hepatitis Screen forat risk populations Shingles vaccine after 65 if indicated Tetanus Vaccine every 10 years Lipids yearly under the age of 75 If Smoking history: one time CT scan of chest and Ultrasound of Aorta to screen for Anuerysm Assessment & Plan (04/26/2023 3:19 PM EST): Colonoscopy every 10 years or Cologuard every 3 years ages 50-75 Flu Vaccine yearly Pneumovax and Prevnar Mammo yearly for women and PSA yearly for men Labs/Screening yearly to rule out Diabetes, Chronic Kidney disease and liver disease Hepatitis Screen forat risk populations Shingles vaccine after 65 if indicated Tetanus Vaccine every 10 years Lipids yearly under the age of 75 If Smoking history: one time CT scan of chest and Ultrasound of Aorta to screen for Anuerysm Urgency of urination 02/16/2023 Weak urinary stream 02/16/2023 Neck sprain 02/16/2023 Right groin pain 02/16/2023 Assessment & Plan (02/16/2023 10:51 AM EST): D/W patient the bulge or mass when sneezing or cough. It does resolve right away Refer to General Surgery D/W Incarceration and Strangulation Has had hernia surgery in left Muscle ache 02/16/2023 Fatigue 02/16/2023 Assessment & Plan (02/16/2023 10:52 AM EST): Consider Sleep Study to identify Sleep Apnea Benign prostatic hyperplasia 09/28/2022 Calculus of kidney 09/28/2022 Chronic tension-type headache 09/28/2022 Tension headache 09/28/2022 GERD (gastroesophageal reflux disease) 3 Idiopathic scoliosis and kyphoscoliosis 09/29/19 23 Impaired fasting glucose 09/28/2022 Assessment & Plan (04/26/2023 3:05 PM EST): No Tobacco use Follow ADA 1800 diet low carbohydrate Continue Med Compliance Goal LDL less than 100 Goal BP 130/80 Goal HgbA1c < 7.0% Monitor Feet, monitor for infection Needs Exercise Yearly eye exams Prior to your visit today we reviewed your chart and outlined testing and treatment needed for your care. Reviewed poissble complications of diabetes including, loss of vision, kidney failure and increased risk of heart attacks and stroke. We made recommendations on how to control your blood sugars, and minimize your risk of these complications. We discussed your current barriers to a healthy living and importance of healthy diet and exercise. Low HDL (under 40) 09/28/2022 Male erectile dysfunction, unspecified 3 Memory deficit 09/28/2022 Assessment & Plan (04/26/2023 3:13 PM EST): Word exercises Avoid alcohol Sleep well, consider Sleep Study Osteoarthritis of shoulder 09/28/2022 Reactive airway disease with acute exacerbation 09/28/2022 Severe acute respiratory syn drome coronavirus 2 (SARS-CoV-2) detected 09/28/2022 High cholesterol 08/17/2022 Assessment & Plan (04/26/2023 3:06 PM EST): This is a chronic medical condition that is stable since last assessment. No changes in treatment are suggested at this time. Continue Current meds. Encounters Date Type Department Care Team Description 10/27/2024 Telephone [facility] [address] [place] [address] Tonya Argueta PA 10/27/2024 Abstract [facility] [address] [facility] [address] [place] [address] Rosalia Raymundo MD 10/26/2024 11:30 AM EDT Office Visit [facility] [address] [place] [address] Rosalia Raymundo MD Dysuria; Urgency of urination; Hematuria, unspecified type 10/26/2024 Telephone [facility] [address] [place] [address] Kalyn Adamson LPN 10/26/2024 Travel 10/26/2024 Telephone [facility] [address] [place] [address] Rosalia Raymundo MD 10/25/2024 Abstract [facility] [address] [place] [address] Rosalia Raymundo MD 10/24/2024 [facility] Result Encounter N[facility]S External Department Unsolicited Provider, Generic External Data 10/24/2024 [facility] Result Encounter N[facility]S External Department Unsolicited Provider, Generic External Data 10/24/2024 [facility] Result Encounter N[facility] External Department Unsolicited Provider, Generic External Data 10/17/2024 Abstract [facility] [address] [place] [address] Rosalia Raymundo MD 10/12/2024 Refill [facility] [address] [place] [address] Rosalia Raymundo MD High cholesterol 09/11/2024 Refill [facility] [address] [place] [address] Rosalia Raymundo MD Calculus of kidney 09/08/2024 Abstract [facility] [address] [place] [address] Rosalia Raymundo MD 09/04/2024 Telephone [facility] [address] [facility] [address] [place] [address] Rosalia Raymundo MD 09/04/2024 Telephone [facility] [address] [facility] [address] [place] [address] Rosalia Raymundo MD 09/01/2024 [facility] [address] [place] [address] Rosalia Raymundo MD Referral 08/02/2024 Telephone [facility] [address] [facility] [address] [place] [address] Rosalia Raymundo MD from Last 3 Months Immunizations Immunization Administration Dates Next Due Influenza, High Dose Seasona l, Preservative Free 03/26/2021 Influenza, High-dose Seasona l, Quadrivalent, Preservative Free 12/22/2021,03/26/2021,02/09/2019,12/29 Influenza, Seasonal, Quadriv alent, Adjuvanted 01/13/2023,01/16/2020 Influenza, injectable, quadr ivalent, preservative free 01/16/2020,03/08/2017,11/11/2015,12/17 Influenza, seasonal, intrade rmal, preservative free 03/16/2013 Influenza, trivalent, adjuvanted 12/09/2023 Pneumococcal Conjugate PCV 13 04/27/2018 Pneumococcal Polysaccharide PPSV23 03/08/2017 Tdap 10/13/2018,03/02/2012 Family History Medical History Relation Name Comments Cancer Father Heart disease Mother Relation Name Status Comments Brother Alive Father Mother Alive Social History Tobacco Use Types Packs/Day Years Used Date Smoking Tobacco: Never Tobacco Cessation:Counseling Given: Not Answered Alcohol Use Standard Drinks/Week Comments Never 0 (1 standard drink = 0.6 oz pur e alcohol) caffeine: no PHQ-2 Answer Date Recorded Patient Health Questionnaire-2 Score 0 06/12/2024 Sex and Gender Information Value Date Recorded Sex Assigned at Not on file Legal Sex Male 6:53 PM EDT Gender Identity Not on file Sexual Orientation Not on file Last Filed Vital Signs Vital Sign Reading Time Taken Comments Blood Pressure 122/82 06/12/2024 9:31 AM EDT Pulse 94 06/12/2024 9:31 AM EDT Temperature - - Respiratory Rate 16 01/18/2024 1:21 PM EST Oxygen Saturation 94% 06/12/2024 9:31 AM EDT Inhaled Oxygen Concentration - - Weight 85.7 kg (189 lb) 06/12/2024 9:31 AM EDT Height 177.8 cm (5' 10 ) 06/12/2024 9:31 AM EDT Body Mass Index 27.12 06/12/2024 9:31 AM EDT Plan of Treatment Health Maintenance Due Date Last Done Comments Diabetes: Retinopathy Screening 09/14/1955 Diabetes: Hemoglobin A1C 09/01/2024 025, 11/10/2023, 02/17/2023, Additional history exists Influenza Vaccine (#1) 2024 , 01/13/2023, 12/22/2021, Additional history exists Diabetes: Urine Protein Screening 06/02/2025 025, 04/27/2023 Medicare Annual Wellness (AWV) 06/12/2025 0 06/12/2024, 10/14/2021, 10/11/2020, Additional history exists Colonoscopy Discontinued 04/08/2012 Colorectal Cancer Screening Discontinued Pneumococcal Vaccine: 65+ Years Completed 9, 03/08/2017 CT Colonography Discontinued FIT-DNA Discontinued FIT Discontinued FOBT Discontinued Sigmoidoscopy Discontinued Procedures Procedure Name Priority Date/Time Associated Diagnosis Comments POCT URINALYSIS DIPSTICK Routine 10/26/2024 11:39 AM EDT Dysuria Urgency of urination URINARY TRACT INFECTION (HTRX) Routine 10/26/2024 11:38 AM EDT Hematuria, unspecified type XR CHEST 2V 10/24/2024 12:30 PM EDT [facility] APTT Routine 10/24/2024 11:38 AM EDT [facility] PROTHROMBIN TIME INR W/O COUM Routine 10/24/2024 11:38 AM EDT ALL BASIC METABOLIC PANEL Routine 10/24/2024 11:38 AM EDT ALL CBC WITH AUTO DIFF Routine 10/24/2024 11:38 AM EDT ECG 12-LEAD 10/24/2024 9:32 AM EDT MICROALBUMIN / CREATININE URINE RATIO Routine 06/02/2024 8:01 AM EDT Abnormal glucose tolerance test Medicare annual wellness visit, subsequent HEMOGLOBIN A1C Routine 06/02/2024 8:01 AM EDT Abnormal glucose tolerance test Medicare annual wellness visit, subsequent COLONOSCOPY Routine 04/08/2012 12:00 PM EST from Last 3 Months or Most Recently Relevant to Health Maintenance Results * (ABNORMAL) POCT Urinalysis dipstick (10/26/2024 11:39 AM EDT) Color, UA [place] Clarity, UA Cloudy Glucose, UA Positive Negative - 1999(110) ++++ mg/dL Comment:1999 Bilirubin, UA Negative Negative - 4(70) +++ mg/dL Ketones, UA Negative Negative - 160(16) ++++ mg/dL Spec Grav, UA 1.020 1 - 1.03 Blood, UA Positive Negative - 50 Edinson/mcL Comment:moderate pH, UA 6.0 5 - 9 Protein, UA Trace Negative - 2000(20) ++++ mg/dL Urobilinogen, UA 1.0 0.2 - 12 mg/dL Leukocytes, UA Trace Negative - 500+++ William/mcL Nitrite, UA Negative Negative - Positive Urine 10/26/2024 11:3 9 AM EDT Rosalia Raymundo MD POINT OF CARE TEST ENTER/EDIT OR DERABLES Final Result * (ABNORMAL) URINARY TRACT INFECTION (HTRX) (10/26/2024 11:38 AM EDT) [facility] TET B, TET M 25.361(A) 23.000 - 27.500 ppm 10/27/2024 9:02 AM EDT [facility] TET B, TET M Detected(A) 23.000 - 27.500 ppm 10/27/2024 9:02 AM EDT [facility] ACINETOBACTER BAUMANII 0 19.961 - 24.689 ppm 10/27/2024 9:02 AM EDT [facility] ACINETOBACTER BAUMANII Not Detected 19.961 - 24.689 ppm 10/27/2024 9:02 AM EDT [facility] CITROBACTER FREUNDII 0 23.000 - 32.015 ppm 10/27/2024 9:02 AM EDT [facility] CITROBACTER FREUNDII Not Detected 23.000 - 32.015 ppm 10/27/2024 9:02 AM EDT [facility] ENTEROBACTER AEROGENES, CLOACAE 0 23.000 - 32.290 ppm 10/27/2024 9:02 AM EDT [facility] ENTEROBACTER AEROGENES, CLOACAE Not Detected 23.000 - 32.290 ppm 10/27/2024 9:02 AM EDT [facility] ENTEROCOCCUS FAECALIS, FAECIUM 0 26.000 - 33.043 ppm 10/27/2024 9:02 AM EDT [facility] ENTEROCOCCUS FAECALIS, FAECIUM Not Detected 26.000 - 33.043 ppm 10/27/2024 9:02 AM EDT [facility] ESCHERICHIA COLI 0 23.000 - 28.500 ppm 10/27/2024 9:02 AM EDT [facility] ESCHERICHIA COLI Not Detected 23.000 - 28.500 ppm 10/27/2024 9:02 AM EDT [facility] KLEBSIELLA PNEUMONIAE, OXYTOCA 0 23.000 - 31.865 ppm 10/27/2024 9:02 AM EDT [facility] KLEBSIELLA PNEUMONIAE, OXYTOCA Not Detected 23.000 - 31.865 ppm 10/27/2024 9:02 AM EDT [facility] MORGANELLA MORGANII 0 19.961 - 24.689 ppm 10/27/2024 9:02 AM EDT [facility] MORGANELLA MORGANII Not Detected 19.961 - 24.689 ppm 10/27/2024 9:02 AM EDT [facility] PROTEUS MIRABILIS, VULGARIS 0 23.000 - 28.500 ppm 10/27/2024 9:02 AM EDT [facility] PROTEUS MIRABILIS, VULGARIS Not Detected 23.000 - 28.500 ppm 10/27/2024 9:02 AM EDT [facility] PSEUDOMONAS AERUGINOSA 0 23.000 - 31.801 ppm 10/27/2024 9:02 AM EDT [facility] PSEUDOMONAS AERUGINOSA Not Detected 23.000 - 31.801 ppm 10/27/2024 9:02 AM EDT [facility] STAPHYLOCOCCUS AUREUS 0 26.000 - 31.595 ppm 10/27/2024 9:02 AM EDT [facility] STAPHYLOCOCCUS AUREUS Not Detected 26.000 - 31.595 ppm 10/27/2024 9:02 AM EDT [facility] STREPTOCOCCUS AGALACTIAE (GROUP B STREP) 17.001(A) 26.000 - 32.435 ppm 10/27/2024 9:02 AM EDT [facility] STREPTOCOCCUS AGALACTIAE (GROUP B STREP) Detected(A) 26.000 - 32.435 ppm 10/27/2024 9:02 AM EDT [facility] GRAHAM ALBICANS, PARAPSILOSIS, TROPICALIS 0 23.000 - 30.347 ppm 10/27/2024 9:02 AM EDT [facility] GRAHAM ALBICANS, PARAPSILOSIS, TROPICALIS Not Detected 23.000 - 30.347 ppm 10/27/2024 9:02 AM EDT [facility] GRAHAM GLABRATA 0 23.000 - 31.618 ppm 10/27/2024 9:02 AM EDT [facility] GRAHAM GLABRATA Not Detected 23.000 - 31.618 ppm 10/27/2024 9:02 AM EDT [facility] GRAHAM KRUSEI 0 23.000 - 30.873 ppm 10/27/2024 9:02 AM EDT [facility] GRAHAM KRUSEI Not Detected 23.000 - 30.873 ppm 10/27/2024 9:02 AM EDT [facility] SERRATIA MARCESCENS 0 23.000 - 31.581 ppm 10/27/2024 9:02 AM EDT [facility] SERRATIA MARCESCENS Not Detected 23.000 - 31.581 ppm 10/27/2024 9:02 AM EDT [facility] STREPTOCOCCUS PYOGENES (GROUP A STREP) 0 19.961 - 24.689 ppm 10/27/2024 9:02 AM EDT [facility] STREPTOCOCCUS PYOGENES (GROUP A STREP) Not Detected 19.961 - 24.689 ppm 10/27/2024 9:02 AM EDT [facility] STAPHYLOCOCCUS EPIDERMIDIS, HAEMOLYTICUS, LUGDUNENSIS, SAPROPHYTICUS (URINA 0 19.961 - 24.689 ppm 10/27/2024 9:02 AM EDT [facility] STAPHYLOCOCCUS EPIDERMIDIS, HAEMOLYTICUS, LUGDUNENSIS, SAPROPHYTICUS (URINA Not Detected 19.961 - 24.689 ppm 10/27/2024 9:02 AM EDT [facility] STAPHYLOCOCCUS EPIDERMIDIS, HAEMOLYTICUS, LUGDUNENSIS, SAPROPHYTICUS (URINA 0 19.961 - 24.689 ppm 10/27/2024 9:02 AM EDT [facility] STAPHYLOCOCCUS EPIDERMIDIS, HAEMOLYTICUS, LUGDUNENSIS, SAPROPHYTICUS (URINA Not Detected 19.961 - 24.689 ppm 10/27/2024 9:02 AM EDT [facility] Urine 10/26/2024 11:3 8 AM EDT 10/27/2024 2:33 AM EDT us Rosalia Raymundo MD LAB BLOOD ORDERABLES Final Resul t [facility] [address] [place] [address] * XR CHEST 2V (10/24/2024 12:30 PM EDT) Anatomical Region Laterality Modality Other 10/24/2024 12:3 0 PM EDT Narrative 10/24/2024 12:33 PM EDT [address] [address] XRay Report Signed Patient: CLAUDINE AGUILERA MR#: [id number] : 1945 Acct:[id number] Age/Sex: 79 / M ADM Date: 10/24/24 Loc: PST Attending Dr: Luis Alston M.D. Ordering Physician: Luis Alston M.D. Date of Service: 10/24/24 Procedure(s): XR chest 2V Accession Number(s): [id number] cc: ROSALIA RAYMUNDO ; Luis Alston M.D. [address] [address] Patient Name: CLAUDINE AGUILERA MRN: [id number] date: 1945 Sex: M Assigned Patient Location: SURGOUT Current Patient Location: SURGOUT Accession/Order Number: [id number] Exam Date: 10/24/2024 11:45 Report Date: 10/24/2024 12:30 At the request of: LUIS ALSTON MD Procedure: XR chest 2V PA [...] Knox M.D. 10/24/2024 12:30 PM Dictation Location: [place] [address] Electronically authenticated by: [id number] Y Date: 10/24/2024 12:30 Dictated By: Tonya Knox M.D. Signed By: 10/24/24 1233 DD/ 1230 TD/TT: Heater Tender: Procedure Note Radiology, Radiologist, MD - 10/24/[address] [address] XRay Report Signed Patient: CLAUDINE AGUILERA RMR#: [id number] : 1945cct:[id number] Age/Sex: 79 / MADM Date: 10/24/24 Loc: PST Attending Dr: Luis Alston M.D. Ordering Physician: Luis Alston M.D. Date of Service: 10/24/24 Procedure(s): XR chest 2V Accession Number(s): [id number] cc: ROSALIA RAYMUNDO ; Luis Alston M.D. The [address] [address] Patient Name: CLAUDINE AGUILERA MRN: [id number] date: 1945 Sex: M Assigned Patient Location: SURGOUT Current Patient Location: SURGOUT Accession/Order Number: [id number] Exam Date: 10/24/2024 11:45 Report Date: 10/24/2024 12:30 At the request of: LUIS ALSTON MD Procedure: XR chest 2V PA [...] Knox M.D. 10/24/2024 12:30 PM Dictation Location: [place] [address] Electronically authenticated by: [id number] Y Date: 2:30 Dictated By: Tonya Knox M.D. Signed By:10/24/24 1233 DD/ 1230 TD/TT: Heater Tender: Generic External Data Provider [facility] Final Result * [facility] PROTHROMBIN TIME INR W/O COUM [...] External Data Provider [facility] F inal Result [facility] * [facility] APTT (10/24/2024 11:38 AM EDT) PARTIAL THROMBOPLASTIN TIME 27.9 22.3 - 36.2 sec [facility] 10/24/2024 11:3 8 AM EDT 10/24/2024 11:40 AM EDT Narrative [facility] - 10/24/2024 12:35 PM EDT us Generic External Data Provider [facility] F inal Result [facility] * (ABNORMAL) ALL CBC WITH AUTO DIFF (10/24/2024 11:38 AM EDT) TB WBC 13.7(H) 4.0 - 11.0 10 3/uL [...] Narrative [facility] - 10/24/2024 12:10 PM EDT Generic External Data Provider MATTHEW Sonia janes Result Performing Organization Address City/[facility] Co de Phone Number [facility] TB * ALL BASIC METABOLIC PANEL (10/24/2024 11:38 [...] 0.70 - 1.30 mg/dL TBH TB[facility] EGFR-AF N[place]ARAGUAN >60 >=60 mL/min/1.7 3m 2 TBH TBH EGFR-NON AF N[place]AR[place]UAN >60 >=60 mL/min/1.7 3m 2 [facility] BUN CREATININE RATIO 17.1 TBH CALCIUM 9.5 8.5 - 10.1 mg/dL [facility] 10/24/2024 11:3 8 AM EDT 10/24/2024 11:40 AM EDT Narrative [facility] - 10/24/2024 12:20 PM EDT Generic External Data Provider MATTHEW Sonia janes Result Performing Organization Address City/[facility]/ZIP Co de Phone Number [facility] TB * ECG 12-LEAD (10/24/2024 9:32 AM EDT) Anatomical Region Laterality Modality Other 10/24/2024 9:32 AM EDT Narrative 10/25/2024 1:51 PM EDT [address] [address] Electrocardiograph Report Signed Patient: CLAUDINE AGUILERA MR#: [id number] : 1945 Acct:[id number] Age/Sex: 79 / M ADM Date: 10/24/24 Loc: PST Attending Dr: Luis Alston M.D. Ordering Physician: Luis Alston M.D. Date of Service: 10/24/24 Procedure(s): ECG 12 lead Accession Number(s): [id number] cc: [facility] Test Date: 2024-10-24 Pat Name: CLAUDINE AGUILERA Department: Room: - Gender: Male Manager Route: : 1945 Requested By: LUIS ALSTON Order Number: [id number] Reading MD: MICKIE SAM Measurements Intervals [place] Rate: 83 P: 32 OR: 227 QRS: -66 QRSD: 108 T: 27 [...] Electronically Signed On 10-25-2024 13:51:40 EDT by MICKIE SAM Dictated By: Mickie Sam M.D. Signed By: 10/25/24 1351 DD/ 0932 TD/TT: Heater Tender: Procedure Note Radiology, Radiologist, MD - 10/25/2024 [place] [address] Electrocardiograph Report Signed Patient: CLAUDINE AGUILERA RMR#: [id number] : 1945cct:[id number] Age/Sex: 79 / MADM Date: 10/24/24 Loc: PST Attending Dr: Luis Alston M.D. Ordering Physician: Luis Alston M.D. Date of Service: 10/24/24 Procedure(s): ECG 12 lead Accession Number(s): [id number] cc: [facility] Test Date: 2024-10-24 Pat Name: CLAUDINE AGUILERA Department: Room: - Gender: Male Manager Route: : 1945 Requested By: LUIS ALSTON Order Number: [id number] Reading MD: MICKIE SAM Measurements Intervals [place] Rate: 83 P: 32 OR: 227 QRS: -66 QRSD: 108 T: 27 [...] Electronically Signed On 10-25-2024 13:51:40 EDT by MICKIE SAM Dictated By: Mickie Sam M.D. Signed By:10/25/24 1351 DD/ 0932 TD/TT: Heater Tender: Generic External Data Provider [facility] Final Result * Microalbumin / creatinine urine ratio (06/02/2024 8:01 AM EDT) CREATININE, RANDOM URINE 97 20 - 320 mg/dL [facility] ALBUMIN, URINE 0.3 See Note: mg/dL [facility] Comment: Reference Range: Reference Range Not established ALBUMIN/CREATININE RATIO, RANDOM URINE 3 <30 mg/g creat [facility] Comment: The ADA defines abnormalities in albumin excretion as follows: Albuminuria Category Result (mg/g creatinine) Normal to Mildly increased <30 Moderately increased 30-299 Severely increased > OR = 300 The ADA recommends that at least two of three specimens collected within a 3-6 month period be abnormal before considering a patient to be within a diagnostic category. Urine Urine specimen obtained by clean catch procedure / Unknown 06/02/2024 8:01 AM EDT 06/02/2024 3:27 PM EDT Narrative Resulting Agency Comment Performing Organization Information Site ID: [id number] Name: [facility] Address: [address] [place] [address], [address] [place] [id number] Director: Gallo Sanchez MD Rosalia Raymundo MD LAB URINE ORDERABLES Final Resul t Performing Organization Address [facility] de Phone Number [facility] * (ABNORMAL) Hemoglobin A1c (06/02/2024 8:01 AM EDT) Hemoglobin A1C 6.0(H) <5.7 % of total Hgb [facility] Comment: For someone without known diabetes, a hemoglobin A1c value between 5.7% and 6.4% is consistent with prediabetes and should be confirmed with a follow-up test. For someone with known diabetes, a value <7% indicates that their diabetes is well controlled. A1c targets should be individualized based on duration of diabetes, age, comorbid conditions, and other considerations. This assay result is consistent with an increased risk of diabetes. Currently, no consensus exists regarding use of hemoglobin A1c for diagnosis of diabetes for children. Blood Venous blood specimen / Unknown 06/02/2024 8:01 AM EDT 06/02/2024 3:27 PM EDT Narrative Resulting Agency Comment Performing Organization Information Site ID: QPT Name: [facility] Address: [address] [place] [address], [address] [place] [id number] Director: Gallo Sanchez MD us Rosalia Raymundo MD LAB BLOOD ORDERABLES Final Resul t Performing Organization Address [facility] de Phone Number [facility] * Colonoscopy (04/08/2012 12:00 PM EST) Anatomical Region Laterality Modality Endoscopy 04/08/2012 12:0 0 PM EST Narrative 04/08/2012 12:00 PM EST PERFORMED AT [facility] LOCATION:[id number] Diverticulosis Procedure Note CONVERSION, GENERIC - 07/09/2022 PERFORMED AT [facility] LOCATION:[id number] Diverticulosis us Rosalia Raymundo MD ENDOSCOPY PROCEDURE ORDERABLES F inal Result from Last 3 Months or Most Recently Relevant to Health Maintenance Insurance MEDICARE [employer] Care Teams Neurosurgery Spine Physician Relationship Specialty Start Date End Date Rosalia Raymundo MD [address] [facility] [address] [place] [address] PCP - ACO Reach 07/16/22 Rosalia Raymundo MD [address] [facility] [address] [place] [address] PCP - General Family Medicine 06/30/22
--- OUTSIDE RECORDS SUMMARY | 2024-11-01 08:59 | XMS_ITS | Encounter Summary ---
Author Organization [facility] Address [address] [facility] [place] [address] Care Team Providers Care Director Security Management Name Role Phone Rosalia Ding MD Unavailable Rosalia Ding MD Primary Care Provider [phone] Encounter Details Date Type Department Care Team (Late st Contact Info) Description 03/23/[address] [place] [facility] [address] [facility] [address] [place] [phone] Rosalia Ding MD [address] [facility] [address] [place] [address] Social History Tobacco Use Types Packs/Day Years Used Date Smoking Tobacco: Never Alcohol Use Standard Drinks/Week Comments Never 0 (1 standard drink = 0.6 oz pur e alcohol) caffeine: no Sex and Gender Information Value Date Recorded Sex Assigned at Not on file Legal Sex Male 6:53 PM EDT Gender Identity Not on file Sexual Orientation Not on file documented as of this encounter Plan of Treatment Not on file documented as of this encounter Visit Diagnoses Not on filedocumented in this encounter Care Teams Director Security Management Relationship Specialty Start Date End Date Rosalia Ding MD [address] [facility] [address] [place] [address] PCP - ACO Reach 07/16/22 Rosalia Ding MD [address] [facility] [address] [place] [address] PCP - General Family Medicine 06/30/22 documented as of this encounter
--- OUTSIDE RECORDS SUMMARY | 2024-11-01 08:59 | XMS_ITS | Encounter Summary ---
Author Organization [facility] Address [address] [facility] [place] [address] Care Team Providers Care Senior Business Manager Name Role Phone Rosalia Ding MD Unavailable Rosalia Ding MD Primary Care Provider [phone] Encounter Details Date Type Department Care Team (Late st Contact Info) Description 03/18/2023 Abstract [facility] [place] [facility] [address] [place] [address] [place] [address] Rosalia Ding MD [address] [facility] [address] [place] [address] Social History Tobacco Use Types Packs/Day Years [...] on filedocumented in this encounter Care Teams Senior Business Manager Relationship Specialty Start Date End Date Rosalia Ding MD [address] [facility] [address] [place] [address] PCP - ACO Reach 07/16/22 Rosalia Ding MD [address] [facility] [address] [place] [address] PCP - General Family Medicine 06/30/22 documented as of this encounter
--- OUTSIDE RECORDS SUMMARY | 2024-11-01 08:59 | XMS_ITS | Encounter Summary ---
Author Organization [facility] Address [address] [place] [address] Care Team Providers Care Settlement Worker Name Role Phone Rosalia Ding MD Unavailable Rosalia Ding MD Primary Care Provider [phone] Encounter Details Date Type Department Care Team (Late st Contact Info) Description 12/01/2023 Abstract [facility] [place] [facility] [address] [facility] [address] [place] [address] Rosalia Ding MD [address] [facility] 110 [place] [address] Social History Tobacco Use Types Packs/Day Years [...] on filedocumented in this encounter Care Teams Settlement Worker Relationship Specialty Start Date End Date Rosalia Ding MD [address] [facility] 110 [place] [address] PCP - ACO Reach 07/16/22 Rosalia Ding MD [address] [facility] [address] [place] [address] PCP - General Family Medicine 06/30/22 documented as of this encounter
--- OUTSIDE RECORDS SUMMARY | 2024-11-01 08:59 | XMS_ITS | Encounter Summary ---
Author Organization [facility] Address [address] [place] [address] Care Team Providers Care Liner Assembler Name Role Phone Rosalia Ding MD Unavailable Rosalia Ding MD Primary Care Provider Encounter Details Date Type Department Care Team (Late st Contact Info) Description 10/26/2024 Telephone [facility] [place] [facility] [address] [place] [address] [place] [phone] Rosalia Ding MD [address] [facility] [address] [place] [address] Social History Tobacco Use Types Packs/Day Years [...] Encounter - Dorothy Ibarra MA - 10/26/2024 10:37 AM EDT mistake documented in this encounter Plan of Treatment Not on file documented as of this encounter Visit Diagnoses Not on filedocumented in this encounter Care Teams Liner Assembler Relationship Specialty Start Date End Date Rosalia Ding MD [address] [facility] [address] [place] [address] PCP - ACO Reach 07/16/22 Rosalia Ding MD [address] [place] [address] PCP - General Family Medicine 06/30/22 documented as of this encounter
--- OUTSIDE RECORDS SUMMARY | 2024-11-01 08:59 | XMS_ITS | Encounter Summary ---
Author Organization [facility] Address [address] [place] [address] Care Team Providers Care Model Engine Mechanic Name Role Phone Rosalia Raymundo MD Unavailable Rosalia Raymundo MD Primary Care Provider [phone] Encounter Details Date Type Department Care Team (Late st Contact Info) Description 02/09/2024 Clinisync Result Encounter [facility] External Department Unsolicited Jerry Argueta, PA [address] [facility] 110 [place] [address] Social History Tobacco Use Types Packs/Day Years [...] Procedure Name Priority Date/Time Associated Diagnosis Comments NM SANDOVAL PERF SPECT REST STR 02/09/2024 10:22 AM EST documented in this encounter Results * NM SANDOVAL PERF SPECT REST STR (02/09/2024 10:22 AM EST) Anatomical Region Laterality Modality Other 02/09/2024 10:2 2 AM EST Narrative 02/09/2024 10:23 AM EST The [address] [address] Nuclear Medicine Report Signed Patient: CLAUDINE AGUILERA MR#: [id number] : 1945 Acct:[id number] Age/Sex: 78 / M ADM Date: 02/08/24 Loc: [place] Attending Dr: JERRY ARGUETA Ordering Physician: JERRY ARGUETA Date of Service: 02/08/24 Procedure(s): NM sandoval perf SPECT rest str Accession Number(s): [id number] cc: ROSALIA RAYMUNDO ; JERRY ARGUETA Patient Name: CLAUDINE AGUILERA MR#: [id number] : 1945 Exam Date: 02/08/2024 Ordering Doctor: DR JERRY ARGUETA PA RADIOLOGY REPORT PROCEDURE: NM SANDOVAL PERF SPECT REST STR COMPARISON: None. INDICATIONS: HIGH CHOLESTEROL, EX-SMOKER, SOB, CHEST PAIN TECHNIQUE: Exam Description: Stress/Rest one day protocol gated SPECT Rest Imagin.9 mCi Tc-99m Cardiolite IV on 02/08/2024 Stress Imaging 30.9 mCi Tc-99m Cardiolite IV on 02/08/2024 Exercise Protocol: 0.4 mg Lexiscan given IV Heart Rate (bpm): Rest: 70 Max: 93 PMHR: 64 Blood Pressure: Rest: 130/68 Max: 130/68 Symptoms: Rest and peak stress ECG findings were normal and the exercise portion of the study was normal per attending physician Dr. Clifton . For more details please see separate cardiac stress test report. FINDINGS: QUALITY OF STUDY: Excellent. PERFUSION DEFECT: None. LOCATION: N/A SIZE: N/A. SEVERITY: N/A. TYPE: N/A. WALL MOTION: Normal. LV SIZE: Normal. 56 mL. TID / TCD: None; 0.8 LVEF: Normal. Calculated EF 75%. SUMMARY: Myocardial perfusion imaging study is NORMAL. CONCLUSION: 1. Normal nuclear medicine myocardial perfusion scan. Dictated by: Beto Dietz M.D. on 02/09/2024 at 10:16 Approved by: Beto Dietz M.D. on 02/09/2024 at 10:22 Dictated By: Beto Dietz M.D. Signed By: 02/09/24 1023 DD/ 1022 TD/TT: Textile Scrap Salvager: Procedure Note Radiology, Radiologist, - 02/09/2024 [place] [address] Nuclear Medicine Report Signed Patient: CLAUDINE AGUILERA RMR#: [id number] : 1945cct:[id number] Age/Sex: 78 / MADM Date: 02/08/24 Loc: [place] Attending Dr: JERRY ARGUETA Ordering Physician: JERRY AGRUETA Date of Service: 02/08/24 Procedure(s): NM sandoval perf SPECT rest str Accession Number(s): [id number] cc: ROSALIA RAYMUNDO ; JERRY ARGUETA Patient Name: CLAUDINE AGUILERA MR#: [id number] : 1945 Exam Date: 02/08/2024 Ordering Doctor: DR JERRY ARGUETA PA RADIOLOGY REPORT PROCEDURE: NM SANDOVAL PERF SPECT REST STR COMPARISON: None. INDICATIONS: HIGH CHOLESTEROL, EX-SMOKER, SOB, CHEST PAIN TECHNIQUE: Exam Description: Stress/Rest one day protocol gated SPECT Rest Imagin.9 mCi Tc-99m Cardiolite IV on 02/08/2024 Stress Imaging 30.9 mCi Tc-99m Cardiolite IV on 02/08/2024 Exercise Protocol: 0.4 mg Lexiscan given IV Heart Rate (bpm): Rest: 70 Max: 93 PMHR: 64 Blood Pressure: Rest: 130/68 Max: 130/68 Symptoms: Rest and peak stress ECG findings were normal and the exercise portion ofthe study was normal per attending physician Dr. Clifton . For more detailsplease see separate cardiac stress test report. FINDINGS: QUALITY OF STUDY: Excellent. PERFUSION DEFECT: None. LOCATION: N/A SIZE: N/A. SEVERITY: N/A. TYPE: N/A. WALL MOTION: Normal. LV SIZE: Normal. 56 mL. TID / TCD: None; 0.8 LVEF: Normal. Calculated EF 75%. SUMMARY: Myocardial perfusion imaging study is NORMAL. CONCLUSION: 1. Normal nuclear medicine myocardial perfusion scan. Dictated by: Beto Dietz M.D. on 02/09/2024 at 10:16 Approved by: Beto Dietz M.D. on 02/09/2024 at 10:22 Dictated By: Beto Dietz M.D. Signed By:02/09/24 1023 DD/ 1022 TD/TT: Textile Scrap Salvager: Jerry [facility] Final Result documented in this encounter Visit Diagnoses Not on filedocumented in this encounter Care Teams Model Engine Mechanic Relationship Specialty Start Date End Date Rosalia Raymundo MD [address] [facility] 110 [place] [address] PCP - ACO Reach 07/16/22 Rosalia Raymundo MD [address] [facility] 110 [place] [address] PCP - General Family Medicine 06/30/22 documented as of this encounter
--- OUTSIDE RECORDS SUMMARY | 2024-11-01 08:59 | XMS_ITS | Encounter Summary ---
Author Organization [facility] Address [address] [place] [address] Care Team Providers Care Computer Systems Hardware Analyst Name Role Phone Rosalia Ding MD Unavailable Rosalia Ding MD Primary Care Provider [phone] Encounter Details Date Type Department Care Team (Late st Contact Info) Description 04/29/2023 Abstract [facility] [place] [facility] [address] [facility] 110 [place] [address] Rosalia Ding MD [address] [facility] 110 [place] [address] Social History Tobacco Use Types Packs/Day Years [...] on filedocumented in this encounter Care Teams Computer Systems Hardware Analyst Relationship Specialty Start Date End Date Rosalia Ding MD [address] [facility] 110 [place] [address] PCP - ACO Reach 07/16/22 Rosalia Ding MD [address] [facility] [address] [place] [address] PCP - General Family Medicine 06/30/22 documented as of this encounter
--- OUTSIDE RECORDS SUMMARY | 2024-11-01 08:59 | XMS_ITS | Clinical Summary ---
Author Organization [facility] Address [address] [place] [address] Phone Care Team Providers Care Neurobiologist Name Role Phone Rosalia Ding MD Primary Care Provider [phone] Wesley Alston MD Unavailable [phone] Allergies No known active allergies Medications potassium citrate CR (Urocit-K-15) 15 mEq ER tablet Take 1 tablet (15 mEq) by mouth 2 times daily (morning and late afternoon). Active Farxiga 10 mg tablet Take 1 tablet (10 mg) by mouth once daily in the morning. Take before meals. Active atorvastatin (Lipitor) 40 mg tablet Take 1 tablet (40 mg) by mouth once daily. 09/11/2024 Active multivitamin tablet Take 1 tablet by mouth once daily. Active Active Problems Problem Noted Date Diagnosed Date Hyperlipidemia 10/25/2024 BMI 26.0-26.9,adult 10/25/2024 Former smoker 10/25/2024 Pre-operative cardiovascular examination 025 Encounters Date Type Department Care Team Description 10/25/2024 10:20 AM EDT Office Visit [place] [address] [phone] David Lentz DO Hyperlipidemia, unspecified hyperlipidemia type; BMI 26.0-26.9,adult; Former smoker; Pre-operative cardiovascular examination Discharge Disposition: Home 10/25/2024 Travel from Last 3 Months Family History Medical History Relation Name Comments Heart attack Brother Heart disease Brother Heart attack Mother Heart disease Mother Mental illness Sister Relation Name Status Comments Brother Mother Sister Social History Tobacco Use Types Packs/Day Years [...] Mass Index 26.33 10/25/2024 10:36 AM EDT Plan of Treatment Health Maintenance Due Date Last Done Comments Lipid Panel 1945 Medicare Annual Wellness Visit (AWV) 1945 Hepatitis C Screening 09/14/1965 Zoster Vaccines (1 of 2) 09/14/1997 RSV High Risk: (Elderly (60+) or Population) (1 - 1-dose 75+ series) 09/14/2022 COVID-19 Vaccine (4 - 2023- season) 2024 12/09/2023, 03/16/2023, 05/23/2020 Influenza Vaccine (#1) 2024 , 01/13/2023, 12/22/2021, Additional history exists DTaP/Tdap/Td Vaccines (3 - Td or Tdap) 10/13/2028 10/13/2018, 03/02/2012 Pneumococcal Vaccine Completed 04/27/2018, 03/08/19 18 HIB Vaccines Aged Out No longer eligi ble based on patient's age to complete this topic HPV Vaccines Aged Out No longer eligi ble based on patient's age to complete this topic Hepatitis A Vaccines Aged Out No long er eligible based on patient's age to complete this topic Hepatitis B Vaccines Aged Out No long er eligible based on patient's age to complete this topic IPV Vaccines Aged Out No longer eligi ble based on patient's age to complete this topic Meningococcal Vaccine Aged Out No jaiden puma eligible based on patient's age to complete this topic Rotavirus Vaccines Aged Out No longer eligible based on patient's age to complete this topic Procedures Procedure Name Priority Date/Time Associated Diagnosis Comments ECG 12-LEAD Routine 10/25/2024 10:20 AM EDT Pre-operative cardiovascular examination from Last 3 Months Results * ECG 12 Lead (10/25/2024 10:20 AM EDT) Narrative [facility] - 10/25/2024 11:22 AM EDT Normal sinus rhythm, incomplete right bundle branch block, borderline ECG David Lentz DO ECG ORDERABLES Final [facility] t CPA from Last 3 Months Insurance MEDICARE PART A AND B MEDICARE PART A AND B Care Teams Neurobiologist Relationship Specialty Start Date End Date Rosalia Ding MD [address] [facility] 110 [place] [address] PCP - General Family Medicine 10/25/24 Wesley Alston MD [address] [facility] [address] [place] [address] Referring Physician General Surgery 10/25/24
--- OUTSIDE RECORDS SUMMARY | 2024-11-01 08:59 | XMS_ITS | Encounter Summary ---
Author Organization [facility] Address [address] [place] [address] Phone Care Team Providers Care Grant Officer Name Role Phone Rosalia Ding MD Primary Care Provider [phone] Wesley Alston MD Unavailable [phone] Encounter Details Date Type Department Care Team (Latest Contact Info) Description 10/25/2024 Travel Social History Tobacco Use Types Packs/Day [...] Diagnoses Not on filedocumented in this encounter Additional Health Concerns Assessment Noted Time A fall risk assessment has been complete d for the patient 10/25/2024 10:36 AM EDT documented as of this encounter Care Teams Grant Officer Relationship Specialty Start Date End Date Rosalia Ding MD [address] [facility] 110 [place] [address] PCP - General Family Medicine 10/25/24 Wesley Alston MD [address] [facility] [address] [place] [address] Referring Physician General Surgery 10/25/24 documented as of this encounter
--- OUTSIDE RECORDS SUMMARY | 2024-11-01 09:16 | XMS_ITS | CCD ---
Author Organization [facility] CliniSy[facility] Care Team Providers Care [employer] Teacher Name Role Phone ROSALIA RAYMUNDO Primary Care Physician [phone] CARRIE, DR MEZA Admitting Unavailable CARRIE, DR MEZA Attending Unavailable ZACKARY, DR DUNCAN Primary Care Unavailable CARRIE, DR MEZA Consulting Unavailable LOR, DR VANESSA Retana Consulting Unavailable BEVERLY HANSEN Admitting Unavailable BEVERLY HANSEN Attending Unavailable ZACKARY, DR DUNACN Primary Care Unavailable LOR, DR VANESSA Retana Consulting Unavailable TYRONE, BEVERLY Consulting Unavailable Rosalia Raymundo MD Unavailable Rosalia Raymundo MD Primary Care Provider Luis ALSTON Attending Unavailable Luis ALSTON Attending Unavailable ROSALIA RAYMUNDO Referring Unavailable Rosalia Raymundo MD Primary Care Provider Luis Alston MD Unavailable GHAZALA MCKINNEY Attending Unavailable ROSALIA RAYMUNDO Primary Care Unavailable ROSALIA RAYMUNDO Attending Unavailable ROSALIA RAYMUNDO Attending Unavailable BEVERLY HANSEN Attending Unavailable BEVERLY HANSEN Referring Unavailable TONYA SAVAGE Attending Unavailable Allergies Allergy Classification Reported Allergen(s) Allergy Type Date of Onset Reaction(s) Facility (1 source) bee venom Drug allergy (disorder) [facility] Repository (1 source) No Known Medication Allergies; Translations: [No Known Medication Allergies] Propensity to adverse reactions (disorder) [facility] Repository Medications Current Medications Medication Drug Class(es) Dates Sig (Normalized) Sig (Original) Aspirin (1 source) Platelet Aggregation Inhibitor, Nonsteroidal Anti-inflammatory Drug Start: 02-07-2019 aspirin Start Date: 02/07/19 Status: Ordered atorvastatin 40 mg oral tablet (20 sources) HMG-CoA Reductase Inhibitor Start: 09-11-2024 take 1 tablet by mouth once daily atorvastatin (Lipitor) 40 MG tablet Indications: High cholesterol TAKE 1 TABLET BY MOUTH EVERY DAY 100 tablet 3 10/12/2024 Active Start: 09-27-2023 take 1 tablet by nova th once daily atorvastatin (Lipitor) 40 MG tablet Indications: High cholesterol TAKE 1 TABLET BY MOUTH EVERY DAY 90 tablet 4 09/27/2023 Active Start: 02-07-2019 atorvastatin O ral, Daily Start Date: 02/07/19 Status: Ordered baclofen 10 mg oral tablet (8 sources) gamma-Aminobutyric Acid-ergic Agonist Start: 09-27-2023 End: 06-12-2024 take 1 tablet by mouth once daily in the morning, then take 1 tablet by mouth in the evening, then take 1 tablet by mouth at bedtime baclofen (Lioresal) 10 MG tablet Indications: Muscle ache , Neck sprain, initial encounter TAKE 1 TABLET BY MOUTH EVERY MORNING 1 IN THE EVENING AND 1 BEFORE BEDTIME 270 tablet 1 09/27/2023 06/12/2024 Discontinued (Side effects) cephalexin 500 mg oral capsule (1 source) Cephalosporin Antibacterial Start: 10-27-2024 End: 11-03-2024 take 1 capsule by mouth in the morning cephalexin (Keflex) 500 MG capsule Indications: Acute cystitis with hematuria Take 1 capsule (500 mg) by mouth in the morning and 1 capsule (500 mg) before bedtime. Do all this for 7 days. 14 capsule 10/27/2024 11/03/2024 Active dapagliflozin 10 mg oral tablet (18 sources) Sodium-Glucose Cotransporter 2 Inhibitor Start: 10-22-2023 take 1 tablet by mouth in the morning dapagliflozin (Farxiga) 10 MG Indications: High cholesterol Take 1 tablet (10 mg) by mouth in the morning. 30 tablet 11 02/11/2024 Active lansoprazole (1 source) Proton Pump Inhibitor Start: 02-07-2019 lansoprazole Oral, Daily Start Date: 02/07/19 Status: Ordered Multi Vitamin+ (1 source) Start: 07-29-2022 Multi Vitamin+ Start Date: 07/29/22 Status: Ordered Multi Vitamins oral tablet (2 sources) Start: 09-11-2024 take 1 tablet by mouth once daily Multi Vitamins oral tablet 1 tab(s), Oral, Daily, Refill(s) 0 Start Date: 09/11/24 Status: Ordered Repeat number: 1 Multiple Vitamin (MULTI VITAMIN DAILY PO) (15 sources) Start: 07-29-2022 take 1 tablet by mouth once daily Multiple Vitamin (MULTI VITAMIN DAILY PO) Take 1 tablet by mouth 1 (one) time each day 07/29/2022 Active multivitamin tablet (1 source) take 1 tablet by mouth once daily multivitamin tablet Take 1 tablet by mouth once daily. Active potassium citrate 15 meq extended release oral tablet (20 sources) Start: 09-11-2024 take 1 tablet by mouth in the morning potassium citrate CR (Urocit-K-15) 15 mEq ER tablet Indications: Calculus of kidney TAKE 1 TABLET (15 MEQ) BY MOUTH IN THE MORNING AND 1 TABLET (15 MEQ) BEFORE BEDTIME 180 tablet 1 09/11/2024 Active Start: 04-09-2021 End: 06-12-2024 take 1 tablet by mouth in the morning potassium citrate CR (Urocit-K-15) 15 mEq ER tablet Indications: Calculus of kidney Take 1 tablet (15 mEq) by mouth in the morning and 1 tablet (15 mEq) before bedtime. 120 tablet 1 06/12/2024 Active quiNIDine (1 source) Antiarrhythmic, Cytochrome P450 2D6 Inhibitor Start: 02-07-2019 quinidine Start Date: 02/07/19 Status: Ordered quiNINE sulfate 324 mg oral capsule (2 sources) Antimalarial Start: 09-07-2023 take 1 capsule by mouth every eight hours quiNINE (Qualaquin) 324 MG capsule Take 324 mg by mouth every 8 (eight) hours 09/07/2023 Active sulfamethoxazole 800 mg / trimethoprim 160 mg oral tablet (2 sources) Dihydrofolate Reductase Inhibitor Antibacterial, Sulfonamide Antimicrobial Start: 10-26-2024 End: 11-05-2024 take 1 tablet by mouth once in the morning, then take 1 tablet by mouth once at bedtime sulfamethoxazole- trimethoprim (Bactrim DS) 800-160 MG per tablet Indications: Acute cystitis without hematuria Take 1 tablet by mouth in the morning and 1 tablet before bedtime. Do all this for 10 days. 20 tablet 10/26/2024 10/27/2024 Discontinued (Ineffective) triamcinolone acetonide 1 mg/ml topical cream (2 sources) Corticosteroid Start: 01-18-2024 End: 02-01-2024 triamcinolone (Kenalog) 0.1 % cream Indications: Eczema, unspecified type Apply topically 2 (two) times a day for 14 days 01/18/2024 02/01/2024 Active Problems Active Problems Problem Classification Problem Date Documented Da te Episodic/Chronic Allergic reactions (2 sources) Eczema; Translations: [Dermatitis, unspecified] 01-18-2024 Episodic Asthma (19 sources) Asthma; Translations: [Reactive airway disease] Onset: 3 02-07-2019 Chronic Coronary atherosclerosis and other heart disease (19 sources) Coronary arteriosclerosis; Translations: [Atherosclerotic heart disease of [place] coronary artery without angina pectoris] Onset: 4 04-26-2023 Chronic Diabetes mellitus with complications (11 sources) Type 2 diabetes mellitus; Translations: [Type 2 diabetes mellitus with other circulatory complications] Onset: 5 06-12-2024 Chronic Diabetes mellitus without complication (2 sources) Diabetes mellitus 09-11-2024 Chronic Disorders of lipid metabolism (20 sources) Hypercholesterolemia; Translations: [Pure hypercholesterolemia, unspecified] Onset: 3 02-07-2019 Chronic Esophageal disorders (15 sources) Gastroesophageal reflux disease; Translations: [Gastro-esophageal reflux disease without esophagitis] Onset: 3 09-28-2022 Chronic Fluid and electrolyte disorders (2 sources) Hypokalemia; Translations: [Hypokalemia] 11-10-2023 Episodic Headache; including migraine (20 sources) Chronic tension-type headache; Translations: [Chronic tension-type headache, not intractable] Onset: 3 09-28-2022 Chronic Hyperplasia of prostate (20 sources) Benign prostatic hypertrophy without outflow obstruction; Translations: [Benign prostatic hyperplasia without lower urinary tract symptoms] Onset: Chronic Nausea and vomiting (2 sources) Nausea; Translations: [Nausea] 11-10-2023 Episodic Osteoarthritis (20 sources) Arthritis; Translations: [Degenerative joint disease of shoulder region] Onset: 3 02-07-2019 Chronic Other bone disease and musculoskeletal deformities (15 sources) Idiopathic kyphoscoliosis; Translations: [Other idiopathic scoliosis, site unspecified] Onset: 3 09-28-2022 Chronic Other diseases of kidney and ureters (1 source) Acquired renal cyst without neoplastic change; Translations: [Cyst of kidney, acquired] Onset: 2 Episodic Other diseases of kidney and ureters (4 sources) Cyst of kidney 02-20-2019 Episodic Other gastrointestinal disorders (2 sources) Diarrhea; Translations: [Diarrhea, unspecified] 11-10-2023 Episodic Other lower respiratory disease (4 sources) Pleurodynia; Translations: [PLEURODYNIA] Onset: 2 Episodic Other male genital disorders (15 sources) Male erectile dysfunction, unspecified; Translations: [Impotence of organic origin] Onset: 3 09-28-2022 Chronic Other male genital disorders (1 source) Hydrocele of testis; Translations: [Hydrocele, unspecified] Onset: 2 Episodic Other male genital disorders (4 sources) Encysted hydrocele 07-23-2021 Episodic Other nutritional; endocrine; and metabolic disorders (15 sources) Cholesterol level - finding; Translations: [Lipoprotein deficiency] Onset: 3 09-28-2022 Chronic Other nutritional; endocrine; and metabolic disorders (2 sources) Overweight 09-11-2024 Episodic Other nutritional; endocrine; and metabolic disorders (4 sources) Overweight in adulthood with body mass index of 25 or more but less than 30; Translations: [Body mass index (BMI) 26.0-26.9, adult] Onset: 5 09-19-2024 Episodic Other nutritional; endocrine; and metabolic disorders (2 sources) Body mass index (BMI) 26.0-26.9, adult; Translations: [Body mass index (BMI) 26.0-26.9, adult] Onset: 5 Episodic Other screening for suspected conditions (not mental disorders or infectious disease) (1 source) Encounter for screening for malignant neoplasm of prostate; Translations: [Screening for malignant neoplasm done] Onset: 2 Episodic Other skin disorders (2 sources) Localized swelling of left lower leg; Translations: [Localized swelling, mass and lump, left lower limb] 01-18-2024 Episodic Spondylosis; intervertebral disc disorders; other back problems (1 source) Pain in thoracic spine; Translations: [PAIN IN THORACIC SPINE] Onset: 2 Episodic Unclassified (3 sources) Patient encounter status 07-23-2021 Urinary tract infections (2 sources) Acute cystitis; Translations: [Acute cystitis without hematuria] 10-26-2024 Episodic Past or Other Problems Problem Classification Problem Date Documented Da te Episodic/Chronic Abdominal hernia (19 sources) Right inguinal hernia ; Translations: [Unilateral inguinal hernia, without obstruction or gangrene, not specified as recurrent] Onset: 03-11-2023 03-11-2023 Episodic Abdominal pain (15 sources) Right inguinal pain; Translations: [Right lower quadrant pain] Onset: 02-16-2023 02-16-2023 Episodic Calculus of urinary tract (20 sources) History of calculus of kidney; Translations: [Personal history of urinary calculi] Onset: 07-11-2021 Episodic Diabetes mellitus without complication (17 sources) Impaired fasting glycemia; Translations: [Impaired fasting glucose] Onset: 09-28-2022 09-28-2022 Episodic Genitourinary symptoms and ill-defined conditions (20 sources) Poor stream of urine; Translations: [Urgent desire to urinate] Onset: 02-16-2023 02-07-2019 Episodic Inflammatory conditions of male genital organs (19 sources) Orchitis and epididymitis; Translations: [Epididymo-orchitis ] Onset: 02-16-2023 02-20-2019 Episodic Malaise and fatigue (15 sources) Fatigue; Translations: [Other fatigue] Onset: 02-16-2023 02-16-2023 Episodic Other aftercare (17 sources) Long-term current use of anticoagulant; 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] Onset: 02-16-2023 07-10-2019 Episodic Other connective tissue disease (15 sources) Muscle pain; Translations: [Myalgia, unspecified site] Onset: 02-16-2023 02-16-2023 Episodic Other diseases of kidney and ureters (1 source) Cyst of kidney, acquired; Translations: [CYST OF KIDNEY ACQUIRED] Onset: 07-11-2021 Episodic Other male genital disorders (19 sources) Atrophy of testis; Translations: [Atrophy of testis] Onset: 02-16-2023 07-08-2020 Episodic Other male genital disorders (19 sources) Disorder of male genital organ; Translations: [Hydrocele, unspecified] Onset: 02-16-2023 07-23-2021 Episodic Other male genital disorders (1 source) Encysted hydrocele; Translations: [ENCYSTED HYDROCELE] Onset: 07-11-2021 Episodic Residual codes; unclassified (15 sources) Memory impairment; Translations: [Other amnesia] Onset: 09-28-2022 09-28-2022 Episodic Screening and history of mental health and substance abuse codes (20 sources) Ex-smoker; Translations: [Personal history of nicotine dependence] Onset: 02-16-2023 07-10-2019 Episodic Sprains and strains (15 sources) Neck sprain; Translations: [Sprain of joints and ligaments of unspecified parts of neck, initial encounter] Onset: 02-16-2023 02-16-2023 Episodic Unclassified (1 source) Onset: 10-25-2024 10-25-2024 Viral infection (15 sources) COVID-19; Translations: [Other specified viral infection] Onset: 09-28-2022 09-28-2022 Episodic Results Test Name Value Interpretation Reference Range Facility Urinalysis macro (dipstick) panel (U)on 10-26-2024 Bilirubin, UA Negative Negative - 4(70) +++ mg/dL [facility] Blood, UA Positive Negative - 50 Edinson/mcL [facility] Comment on above: moderate Clarity, UA Cloudy [facility] Color, UA [place] [facility] Glucose, UA Positive Negative - 1999(110) ++++ mg/dL [facility] Comment on above: 1999 Interpretation and review of laboratory results Abnormal [facility] Ketones, UA Negative Negative - 160(16) ++++ mg/dL [facility] Leukocytes, UA Trace Negative - 500+++ William/mcL [facility] Nitrite, UA Negative Negative - Positive [facility] pH, UA 6 5 - 9 [facility] Protein, UA Trace Negative - 1999(20) ++++ mg/dL [facility] Spec Grav, UA 1.02 1 - 1.03 [facility] Urobilinogen, UA 1.0 0.2 - 12 mg/dL [facility] 12 Leadon 10-25-2024 Normal sinus rhythm, incomplete right bundle branch block, borderline ECG [facility] Work Phone: ECG 12-LEADon 10-25-2024 [place] [address] Electrocardiograph Report Signed Patient: CLAUDINE AGUILERA MR#: [id number] : 1945 Acct:[id number] Age/Sex: 79 / M ADM Date: 10/24/24 Loc: PST Attending Dr: Luis Alston M.D. Ordering Physician: Luis Alston M.D. Date of Service: 10/24/24 Procedure(s): ECG 12 lead Accession Number(s): [id number] cc: [facility] Test Date: 2024-10-24 Pat Name: CLAUDINE AGUILERA Department: Room: - Gender: Male Broker Assistant: : 1945 Requested By: LUIS ALSTON Order Number: [id number] Reading MD: MICKIE SAM Measurements Intervals [place] Rate: 83 P: 32 GA: 227 QRS: -66 QRSD: 108 T: 27 [...] Signed By: 10/25/24 1351 DD/ 0932 TD/TT: Bake Room Worker: [facility] Radiology, Radiologist, MD - 10/25/2024 The [place] [id number] Electrocardiograph Report Signed Patient: CLAUDINE AGUILERA MR#: [id number] : 1945 Acct:[id number] Age/Sex: 79 / M ADM Date: 10/24/24 Loc: PST Attending Dr: Luis Alston M.D. Ordering Physician: Luis Alston M.D. Date of Service: 10/24/24 Procedure(s): ECG 12 lead Accession Number(s): [id number] cc: [facility] Test Date: 2024-10-24 Pat Name: CLAUDINE AGUILERA Department: Room: - Gender: Male Broker Assistant: : 1945 Requested By: LUIS ALSTON Order Number: [id number] Reading MD: MICKIE SAM Measurements Intervals [place] Rate: 83 P: 32 GA: 227 QRS: -66 QRSD: 108 T: 27 [...] Signed By: 10/25/24 1351 DD/ 0932 TD/TT: Bake Room Worker: [facility] ECG 12-LEADOrdered By: Radio logist Radiology on 10-25-2024 [facility] [employer] Work Phone: ALL CBC WITH AUTO DIFFon BASOPHILS ABSOLUTE AUTO 0.1 [facility] Basophils/100 WBC (Bld) 0.4 % 0.2 - 2.0 % [facility] Eosinophils/100 WBC (Bld) 0.4 % Low 0.9 - 7.0 % [facility]io Erythrocyte distribution width (RBC) [Ratio] 13.2 % 11.0 - 15.0 % [facility] Hematocrit (Bld) [Volume fraction] 48.6 % 42.0 - 54.0 % [facility] Hemoglobin (Bld) [Mass/Vol] 16.5 g/dL 14.0 - 18.0 g/dL [facility] IMMATURE GRANULOCYTES ABS AUTO 0.04 High [facility] Immature granulocytes/100 WBC (Bld) 0.3 % 0.0 - 0.5 % [facility] Interpretation and review of laboratory results Abnormal [facility] LYMPHOCYTES ABSOLUTE AUTO 1.6 [facility] Lymphocytes/100 WBC (Bld) 11.5 % Low 20.5 - 60.0 % [facility] MCH (RBC) [Entitic mass] 32.1 pg 25.9 - 34.0 pg [facility] MCHC (RBC) [Mass/Vol] 34 g/dL 29.9 - 35.2 g/dL [facility] MCV (RBC) [Entitic vol] 94.6 fL High 80.0 - 94.0 fL [facility] MONOCYTES ABSOLUTE AUTO 0.9 High [facility] Healthcare Monocytes/100 WBC (Bld) 6.6 % 1.7 - 12.0 % [facility] NEUTROPHILS ABSOLUTE AUTO 11.1 High [facility] Neutrophils/100 WBC (Bld) 80.8 % High 43.0 - 75.0 % [facility] Healthcare Platelet mean volume (Bld) [Entitic vol] 9.8 fL 9.5 - 13.5 fL [facility] Healthc are [facility] EO # 0.1 [facility] PLT 178 [facility] RBC 5.14 [facility] WBC 13.7 High [facility] ECG 12-LEADon 10-24-2024 Radiology Study observation (narrative) [facility] XR CHEST 2Von 10-24-2024 [place] [address] XRay Report Signed Patient: CLAUDINE AGUILERA MR#: [id number] : 1945 Acct:[id number] Age/Sex: 79 / M ADM Date: 10/24/24 Loc: PST Attending Dr: Luis Alston M.D. Ordering Physician: Luis Alston M.D. Date of Service: 10/24/24 Procedure(s): XR chest 2V Accession Number(s): [id number] cc: ROSALIA RAYMUNDO ; Luis Alston M.D. [address] [address] Patient Name: CLAUDINE AGUILERA MRN: [facility]:[id number] date: 1945 Sex: M Assigned [facility] Current Patient Location[facility] Accession/Order Number: [id number] Exam Date: 10/24/2024 11:45 Report Date: 10/24/2024 [...] Knox M.D. 10/24/2024 12:30 PM Dictation Location: [place] [address] Electronically authenticated by: [id number] Y Date: 10/24/2024 12:30 Dictated By: Tonya Knox M.D. Signed By: 10/24/24 1233 DD/ 1230 TD/TT: Bake Room Worker: [facility] Radiology, Radiologist, - 10/24/2024 [place] [address] XRay Report Signed Patient: CLAUDINE AGUILERA MR#: [id number] : 1945 Acct:[id number] Age/Sex: 79 / M ADM Date: 10/24/24 Loc: PST Attending Dr: Luis Alston M.D. Ordering Physician: Luis Alston M.D. Date of Service: 10/24/24 Procedure(s): XR chest 2V Accession Number(s): [id number] cc: ROSALIA RAYMUNDO ; Luis Alston M.D. The [place] [id number] Patient Name: CLAUDINE AGUILERA MRN: [facility]:[id number] date: 1945 Sex: M Assigned Patient Location: [facility] Current Patient Location: [facility] Accession/Order Number: [id number] Exam Date: 10/24/2024 11:45 Report Date: 10/24/2024 [...] Knox M.D. 10/24/2024 12:30 PM Dictation Location: [place] [address] Electronically authenticated by: [id number] Y Date: 10/24/2024 12:30 Dictated By: Tonya Knox M.D. Signed By: 10/24/24 1233 DD/ 1230 TD/TT: Bake Room Worker: [facility] Radiology Study observation (narrative) [facility] eCardio XR CHEST 2VOrdered By: [facility] on 10-24-2024 [facility] Work Phone: Ambulatory Visit Summaryon 0 10-17-2024 Ambulatory Visit Summary Ambulatory Visit Summary CLAUDINE AGUILERA :1945 Visit Date:10/17/2024 Ambulatory Visit Instructions Your Care Team Attending Physician - MOHIT VARNER, Luis Retana Primary Care Physician - ZACKARY VARNER, ROSALIA Mo This Is Your Medications List atorvastatin (atorvastatin 40 mg Tab) dapagliflozin (Farxiga 10 mg oral tablet) multivitamin (Multi Vitamins oral tablet) potassium citrate (potassium citrate 15 mEq oral tablet, extended release) Procedures Performed TURP - Transurethral resection of prostate (07/08/2017), Cystoscope (06/29/2017), Urodynamics (06/29/2017), Angioplasty (1999), Coronary artery stent (1999), Appendectomy, Arthroscopy of knee, Back Surgery, Biopsy of prostate, Colonoscopy, Colonoscopy, ESWL (extracorporeal shockwave lithotripsy) of ureteric calculus, Repair of left inguinal hernia, Tonsillectomy, Vasectomy. Discharge Vitals Heart Rate (Peripheral) 91 Respiratory Rate 16 Blood Pressure 117/77 Height 177.8 cm Height 70 in Weight 87 kg Weight 191.802 lb BMI 27.52 Medications What How Much When Instructions Unchanged atorvastatin (atorvastatin 40 mg Tab) 1 Tablets By Mouth Every day Unchanged dapagliflozin (Farxiga 10 mg oral tablet) 1 Tablets By Mouth Every day Unchanged multivitamin (Multi Vitamins oral tablet) 1 Tablets By Mouth Every day Unchanged potassium citrate (potassium citrate 15 mEq oral tablet, extended release) 1 Tablets By Mouth 2 times a day Allergies No Known Allergies No Known Medication Allergies Problems Ongoing - Any problem that you are currently receiving treatment for. Asthma Atrophic testicle Benign localized hyperplasia of prostate with urinary obstruction Bilateral hydrocele BMI 27.0-27.9,adult BPH without obstruction/lower urinary tract symptoms CAD (coronary artery disease) Diabetes Elevated cholesterol Epididymo-orchitis Ex-smoker History of kidney stones Kidney cysts Overweight Reducible right inguinal hernia Urgency of urination Weak urinary stream Historical - Any problem that you are no longer receiving treatment for. Hydrocele, encysted Patient Survey You may receive a survey via text or e-mail asking about your office visit. Please share your experience with us by completing your survey. We appreciate your feedback and thank you for choosing us for your care. Patient Portal You may access all of your results and other medical record information on our secure patient portal. If you are not signed up for this yet, please contact [employer] at [phone] to get signed up today. Language Information Language assistance services are available as needed. Normal [facility] General Surgery Office/Clini c Noteon 10-17-2024 General Surgery Office/Clinic Note General Surgery Office/Clinic Note Chief Complaint reevaluate right inguinal hernia HPI Staff Presents to reevaluate right inguinal hernia. Last evaluation completed 09/19. Denies changes. History of Present Illness 79 yo male with h/o CAD, DMII, hypercholesterolemia , asthma, nephrolithiasis, BPH, bilateral hydroceles, presents now to schedule repair of long-standing right inguinal hernia; no change since recent evaluation; no [place]/V or bowel changes, no skin changes; had previously been seen by Dr Gong 04/[address] Galloway prior to that, was not interested in surgical repair until now; abd operations significant for remote open appendectomy [place] [facility] [place] [address] Phelps; no asa or NSAID use; no tobacco use. Review of Systems PHQ Score Initial Depression Screen Score: 0 SCORE ROS - Provider Constitutional: no fever, no sweats, no weight loss. Eyes: yes glasses, no blurred vision, no visual loss. ENMT: no dentures, no hoarseness, no swallowing difficulties, no hearing loss, no ear infection(s), no nose bleeds. Cardiovascular: normal blood pressure, no chest pain, regular heartbeat, no heart murmur. Respiratory: no shortness of breath, no cough, no asthma, no wheezing. Gastrointestinal: no nausea, no vomiting, no diarrhea, no constipation, no blood in stool, no change in bowel habits, no abdominal pain, no hepatitis. Genitourinary: no kidney stones, no urine infection, no dysuria. Musculoskeletal: no pain, no weakness. Skin: no changing moles, no rash, no skin lumps. Neurologic: no seizures, no epilepsy, no headache. Psychiatric: no emotional or psychiatric problem. Heme/Lymph: no bleeding problems, no anemia, no blood clots, no transfusions. Allergy/Immunologic: no swollen lymph nodes/glands, no IV drug abuse. Other: Additional ROS info: Except as noted in the above Review of Systems and in the History of Present Illness, all other systems have been reviewed and are negative or noncontributory. Physical Exam Vitals & Measurements HR: 91(Peripheral) RR: 16 BP: 117/77 HT: 177.8 cm HT: 70 in WT: 191.802 lb WT: 87 kg BMI: 27.52 Assessment/Plan 1. Reducible right inguinal hernia (K40.90: Unilateral inguinal hernia, without obstruction or gangrene, not specified as recurrent) plan right inguinal herniorrhaphy with mesh insertion at [facility], informed consent obtained. Ancef 2 gms IV prior to OR TAP block per anesthesia SCDs Follow-up No qualifying data available Problem List/Past Medical History Ongoing Asthma Atrophic testicle Benign localized hyperplasia of prostate with urinary obstruction Bilateral hydrocele BMI 27.0-27.9,adult BPH without obstruction/lower urinary tract symptoms CAD (coronary artery disease) Diabetes Elevated cholesterol Epididymo-orchitis Ex-smoker History of kidney stones Kidney cysts Overweight Reducible right inguinal hernia Urgency of urination Weak urinary stream Historical Hydrocele, encysted Procedure/Surgical History TURP - Transurethral resection of prostate (07/08/2017), Cystoscope (06/29/2017), Urodynamics (06/29/2017), Angioplasty (1999), Coronary artery stent (1999), Appendectomy, Arthroscopy of knee, Back Surgery, Biopsy of prostate, Colonoscopy, Colonoscopy, ESWL (extracorporeal shockwave lithotripsy) of ureteric calculus, Repair of left inguinal hernia, Tonsillectomy, Vasectomy. Medications atorvastatin 40 mg Tab, 40 mg= 1 tab(s), Oral, Daily Farxiga 10 mg oral tablet, 10 mg= 1 tab(s), Oral, Daily Multi Vitamins oral tablet, 1 tab(s), Oral, Daily potassium citrate 15 mEq oral tablet, extended release, 15 mEq= 1 tab(s), Oral, BID, 3 refills Allergies No Known Allergies No Known Medication Allergies Social History Alcohol - Denies Alcohol Use, 02/20/2019 Substance Abuse - Denies Substance Abuse, 09/19/2024 Tobacco Former smoker, quit more than 30 days ago Tobacco Use:. Never Smokeless Tobacco Use:. Cigarettes, 0.25 per day., 10/17/2024 Family History Cancer: Father. Heart disease: Mother. Immunizations Vaccine Date Status Comments influenza virus vaccine, inactivated 12/22/2021 Recorded SARS-CoV-2 mRNA (toomidnameran 5y-11y) vac - Not Given Postpone due to refusal influenza virus vaccine, inactivated 03/26/2021 Recorded SARS-CoV-2 (COVID-19) mRNA-1273 vaccine 05/23/2020 Recorded pt received J&J. influenza virus vaccine, inactivated 01/16/2020 Recorded influenza virus vaccine, inactivated 02/09/2019 Recorded pneumococcal 13-valent vaccine 04/27/2018 Recorded influenza virus vaccine, inactivated 12/29/2017 Recorded pneumococcal 23-valent vaccine 03/08/2017 Recorded influenza virus vaccine, inactivated 03/08/2017 Recorded influenza virus vaccine, inactivated 11/11/2015 Recorded Normal [facility] Comment on above: Result Comment: Elec tronically Signed By: MOHIT VARNER, Luis Dempsey\Date and Time Signed: 10/17/24 10:49 EDT Ambulatory Visit Summaryon 0 09-19-2024 Ambulatory Visit Summary Ambulatory Visit Summary CLAUDINE AGUILERA :1945 Visit Date:09/19/2024 Ambulatory Visit Instructions Your Care Team Attending Physician - Luis ALSTON MD Primary Care Physician - ROSALIA RAYMUNDO MD Referring Physician - ROSALIA RAYMUNDO MD This Is Your Medications List Contact prescribing physician if questions or concerns atorvastatin (atorvastatin 40 mg Tab) dapagliflozin (Farxiga 10 mg oral tablet) multivitamin (Multi Vitamins oral tablet) potassium citrate (potassium citrate 15 mEq oral tablet, extended release) Procedures Performed TURP - Transurethral resection of prostate (07/08/2017), Cystoscope (06/29/2017), Urodynamics (06/29/2017), Angioplasty (1999), Coronary artery stent (1999), Appendectomy, Arthroscopy of knee, Back Surgery, Biopsy of prostate, Colonoscopy, Colonoscopy, ESWL (extracorporeal shockwave lithotripsy) of ureteric calculus, Repair of left inguinal hernia, Tonsillectomy, Vasectomy. Discharge Vitals Heart Rate (Peripheral) 92 Respiratory Rate 16 Blood Pressure 118/81 Height 177.8 cm Height 70 in Weight 86.9 kg Weight 191.581 lb BMI 27.49 Medications What How Much When Instructions Unchanged atorvastatin (atorvastatin 40 mg Tab) 1 Tablets By Mouth Every day Contact prescribing physician if questions or concerns Unchanged dapagliflozin (Farxiga 10 mg oral tablet) 1 Tablets By Mouth Every day Contact prescribing physician if questions or concerns Unchanged multivitamin (Multi Vitamins oral tablet) 1 Tablets By Mouth Every day Contact prescribing physician if questions or concerns Unchanged potassium citrate (potassium citrate 15 mEq oral tablet, extended release) 1 Tablets By Mouth 2 times a day Contact prescribing physician if questions or concerns Allergies No Known Allergies No Known Medication Allergies Problems Ongoing - Any problem that you are currently receiving treatment for. 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 Hydrocele, encysted Patient Survey You may receive a survey via text or e-mail asking about your office visit. Please share your experience with us by completing your survey. We appreciate your feedback and thank you for choosing us for your care. Patient Portal You may access all of your results and other medical record information on our secure patient portal. If you are not signed up for this yet, please contact [employer] at [phone] to get signed up today. Language Information Language assistance services are available as needed. Normal [facility] ALBUMIN, RANDOM URINE W/CREA Candy 06-03-2024 ALBUMIN, URINE 0.3 mg/dL Normal See Note: [facility] Comment on above: Result Comment: Refe rence Range: Reference Range Not established Performed By: #### 6 782, 499, 1485 #### [facility] [address], [address] [place] [address] Dental Office Assistant: Gallo Sanchez MD #### [id number] #### [facility] [address] [place] [phone] Dental Office Assistant: Deneen Garcia ALBUMIN/CREATININE RATIO, RANDOM URINE 3 mg/g creat Normal <30 [facility] Comment on above: Result Comment: The ADA defines abnormalities in albumin excretion as follows: Albuminuria Category Result (mg/g creatinine) Normal to Mildly increased <30 Moderately increased 30-299 Severely increased > OR = 300 The ADA recommends that at least two of three specimens collected within a 3-6 month period be abnormal before considering a patient to be within a diagnostic category. Performed By: #### 6 316, 499, 1080 #### [facility] [address], [address] [place] [address] Dental Office Assistant: Gallo Sanchez MD #### [id number] #### [facility] [address] [place] [phone] Dental Office Assistant: Deneen Garcia Creatinine (U) [Mass/Vol] 97 mg/dL Normal 20-320 [facility] Comment on above: Performed By: #### 6 517, 496, 7600 #### [facility] [address], [address] [place] [address] Dental Office Assistant: Gallo Sanchez MD #### [id number] #### [facility] [address] Dental Office Assistant: Deneen Garcia CBC (INCLUDES DIFF/PLT)on Basophils (Bld) [#/Vol] 0.026 10*3/uL Normal 0-200 [facility] Comment on above: Performed By: #### 6 517, 496, 7600 #### [facility] [address], [address] [place] [address] Dental Office Assistant: Gallo Sanchez MD #### [id number] #### [facility] [address] Dental Office Assistant: Deneen Garcia Basophils/100 WBC (Bld) 0.3 % Normal [facility] Comment on above: Performed By: #### 6 517, 496, 1090 #### [facility] [place] [address] Dental Office Assistant: Gallo Sanchez MD #### [id number] #### [facility] [address] Dental Office Assistant: Deneen Garcia Eosinophils (Bld) [#/Vol] 0.139 10*3/uL Normal 15-500 [facility] Comment on above: Performed By: #### 6 517, 496, 6430 #### [facility] [place] [address] Dental Office Assistant: Gallo Sanchez MD #### [id number] #### [facility] [address] Dental Office Assistant: Deneen Garcia Eosinophils/100 WBC (Bld) 1.6 % Normal [facility] Comment on above: Performed By: #### 6 517, 496, 7600 #### [facility] [address], [address] [place] [address] Dental Office Assistant: Gallo Sanchez MD #### [id number] #### [facility] [address] [place] [address] Dental Office Assistant: Deneen Garcia Erythrocyte distribution width (RBC) [Ratio] 13.6 % Normal 11.0-15.0 [facility] Comment on above: Performed By: #### 6 517, 496, 7600 #### [facility] [address], [address] [place] [address] Dental Office Assistant: Gallo Sanchez MD #### [id number] #### [facility] [address] [place] [phone] Dental Office Assistant: Deneen Garcia Hematocrit (Bld) [Volume fraction] 49.2 % Normal 38.5-50.0 [facility] Comment on above: Performed By: #### 6 517, 496, 3720 #### [facility] [address], [address] [place] [address] Dental Office Assistant: Gallo Sanchez MD #### [id number] #### [facility] [address] [place], [place] [phone] Dental Office Assistant: Deneen Garcia Hemoglobin (Bld) [Mass/Vol] 16.5 g/dL Normal 13.2-17.1 [facility] Comment on above: Performed By: #### 6 517, 496, 2790 #### [facility] [place] [address], [address] [place] [address] Dental Office Assistant: Gallo Sanchez MD #### [id number] #### [facility] [address] [place], [place] [phone] Dental Office Assistant: Deneen Garcia Lymphocytes (Bld) [#/Vol] 2.54 10*3/uL Normal 850-3900 [facility] Comment on above: Performed By: #### 6 517, 496, 7600 #### [facility] [place] [address] [address] , [address] [place] [address] Dental Office Assistant: Gallo Sanchez MD #### [id number] #### [facility] [address] [place] [address] Dental Office Assistant: Deneen Garcia Lymphocytes/100 WBC (Bld) 29.2 % Normal [facility] Comment on above: Performed By: #### 6 517, 496, 1790 #### [facility] [address], [address] [place] [address] Dental Office Assistant: Gallo Sanchez MD #### [id number] #### [facility] [address] Dental Office Assistant: Deneen Garcia MCH (RBC) [Entitic mass] 32.0 pg Normal 27.0-33.0 [facility] Comment on above: Performed By: #### 6 517, 496, 6200 #### [facility] [place] [address] Dental Office Assistant: Gallo Sanchez MD #### [id number] #### [facility] [address] Dental Office Assistant: Deneen Garcia MCHC (RBC) [Mass/Vol] 33.5 g/dL Normal 32.0-36.0 [facility] Comment on above: Result Comment: For adults, a slight decrease in the calculated MCHC value (in the range of 30 to 32 g/dL) is most likely not clinically significant; however, it should be interpreted with caution in correlation with other red cell parameters and the patient's clinical condition. Performed By: #### 6 517, 496, 1580 #### [facility] [address], [address] [place] [address] Dental Office Assistant: Gallo Sanchez MD #### [id number] #### [facility] [address] [place] [address] Dental Office Assistant: Deneen Garcia MCV (RBC) [Entitic vol] 95.3 fL Normal 80.0-100.0 [facility] Comment on above: Performed By: #### 6 517, 496, 0355 #### [facility] [address], [address] [place] [address] Dental Office Assistant: Gallo Sanchez MD #### [id number] #### [facility] [address] [place], [place] [phone] Dental Office Assistant: Deneen Retana Flati Monocytes (Bld) [#/Vol] 0.757 10*3/uL Normal 200-950 [facility] Comment on above: Performed By: #### 6 517, 496, 7600 #### [facility] [place] [address] [address] , [address] [place] [address] Dental Office Assistant: Gallo Sanchez MD #### [id number] #### [facility] [address] [place], [place] [phone] Dental Office Assistant: Deneen Retana Flati Monocytes/100 WBC (Bld) 8.7 % Normal [facility] Comment on above: Performed By: #### 6 517, 496, 7600 #### [facility] [address], [address] [place] [address] Dental Office Assistant: Gallo Sanchez MD #### [id number] #### [facility] [address] [place], [place] [phone] Dental Office Assistant: Deneen Johanseni Neutrophils (Bld) [#/Vol] 5.237 10*3/uL Normal 8517-6042 [facility] Comment on above: Performed By: #### 6 517, 496, 7600 #### [facility] [address], [address] [place] [address] Dental Office Assistant: Gallo Sanchez MD #### [id number] #### [facility] [address] [place], [place] [phone] Dental Office Assistant: Deneen Retana Flati Neutrophils/100 WBC (Bld) 60.2 % Normal [facility] Comment on above: Performed By: #### 6 517, 496, 7600 #### [facility] [address] , [address] [place] [address] Dental Office Assistant: Gallo Sanchez MD #### [id number] #### [facility] [address] [place] [phone] Dental Office Assistant: Deneen Garcia Platelet mean volume (Bld) [Entitic vol] 10.2 fL Normal 7.5-12.5 [facility] Comment on above: Performed By: #### 6 517, 496, 7600 #### [facility] [address], [address] [place] [address] Dental Office Assistant: Gallo Sanchez MD #### [id number] #### [place] [phone] Dental Office Assistant: Denene Garcia Platelets (Bld) [#/Vol] 183 10*3/uL Normal 140-400 [facility] Comment on above: Performed By: #### 6 517, 496, 7600 #### [facility] [address], [address] [place] [address] Dental Office Assistant: Gallo Sanchez MD #### [id number] #### [facility] [address] Dental Office Assistant: Deneen Garcia RBC (Bld) [#/Vol] 5.16 10*6/uL Normal 4.20-5.80 [facility] Comment on above: Performed By: #### 6 517, 496, 7600 #### [place] [address] Dental Office Assistant: Gallo Sanchez MD #### [id number] #### [place] [address] Dental Office Assistant: Deneen Garcia WBC (Bld) [#/Vol] 8.7 10*3/uL Normal 3.8-10.8 [facility] Comment on above: Performed By: #### 6 517, 496, 7600 #### [place] [address] Dental Office Assistant: Gallo Sanchez MD #### [id number] #### [place] [phone] Dental Office Assistant: Deneen Garcia HEMOGLOBIN A1con 06-03-2024 HEMOGLOBIN A1c 6.0 % of total Hgb High <5.7 [facility] Comment on above: Result Comment: For someone without known diabetes, a [...] A1c for diagnosis of diabetes for children. Performed By: #### 6 517, 496, 4300 #### [facility] [address], [address] [place] [address] Dental Office Assistant: Gallo Sanchez MD #### [id number] #### [facility] [address] [place] [address] Dental Office Assistant: Deneen Garcia LIPID PANEL, STANDARD 05-23 Cholesterol [Mass/Vol] 156 mg/dL Normal <200 [facility] Comment on above: Performed By: #### 6 517, 496, 7450 #### [facility] [place] [address] Dental Office Assistant: Gallo Sanchez MD #### [id number] #### [facility] [address] [place] [address] Dental Office Assistant: Deneen Garcia Cholesterol in HDL [Mass/Vol] 44 mg/dL Normal > OR = 40 [facility] Comment on above: Performed By: #### 6 517, 496, 7600 #### [facility] [address], [address] [place] [address] Dental Office Assistant: Gallo Sanchez MD #### [id number] #### [facility] [address] [place] [phone] Dental Office Assistant: Deneen Garcia Cholesterol in LDL [Mass/Vol] 94 mg/dL Normal [facility] Comment on above: Result Comment: Refe rence range: <100 Desirable range <100 mg/dL for primary prevention; <70 mg/dL for patients with CHD or diabetic patients with > or = 2 CHD risk factors. LDL-C is now calculated using the Mayuri calculation, which is a validated novel method providing better accuracy than the Friedewald equation in the estimation of LDL-C. Jozef SUNSHINE et al. PAN. 2013;310(19): 0919-8136 (http://education.AgFlow.Trovali/faq/TOA851) Performed By: #### 6 517, 496, 1460 #### [facility] [address], [address] [place] [address] Dental Office Assistant: Gallo Sanchez MD #### [id number] #### [facility] [address] [place] [address] Dental Office Assistant: Deneen Garcia Cholesterol.total/Ch olesterol in HDL [Mass ratio] 3.5 {ratio} Normal <5.0 [facility] Comment on above: Performed By: #### 6 517, 49, 0540 #### [facility] [address], [address] [place] [address] Dental Office Assistant: Gallo Sanchez MD #### [id number] #### [facility] [address] [place], [place] [phone] Dental Office Assistant: Deneen Garcia NON HDL CHOLESTEROL 112 mg/dL (calc) Normal <130 [facility] Comment on above: Result Comment: For patients with diabetes plus 1 major ASCVD risk factor, treating to a non-HDL-C goal of <100 mg/dL (LDL-C of <70 mg/dL) is considered a therapeutic option. Performed By: #### 6 517, 582, 0989 #### [facility] [address], [address] [place] [address] Dental Office Assistant: Gallo Sanchez MD #### [id number] #### [facility] [address] [place], [place] [phone] Dental Office Assistant: Deneen Garcia Triglyceride [Mass/Vol] 88 mg/dL Normal <150 [facility] Comment on above: Performed By: #### 6 517, 496, 7600 #### [facility] [address], [address] [place] [address] Dental Office Assistant: Gallo Sanchez MD #### [id number] #### [facility] [address] [place] [phone] Dental Office Assistant: Deneen Garcia PSA, TOTALon 06-03-2024 PSA, TOTAL 0.70 ng/mL Normal < OR = 4.00 [email or web address] Comment on above: Result Comment: The total PSA value from this assay system is standardized against the WHO standard. The test result will be approximately 20% lower when compared to the equimolar-standardized total PSA (Baylee Gorin). Comparison of serial PSA results should be interpreted with this fact in mind. This test was performed using the Siemens chemiluminescent method. Values obtained from different assay methods cannot be used interchangeably. PSA levels, regardless of value, should not be interpreted as absolute evidence of the presence or absence of disease. Performed By: #### 6 517, 496, 7600 #### [facility] [address], [address] [place], [place] [phone] Dental Office Assistant: Gallo Sanchez MD #### [id number] #### [facility] [address] [place] [phone] Dental Office Assistant: Deneen Garcia Laboratory - Hematology and Cell countson 11-10-2023 HbA1c (Bld) [Mass fraction] 5.6 % [facility] No Panel Informationon 11-09 Interpretation and review of laboratory results [facility] 2 VIEWon 11-10-19 24 XR ABDOMEN 2 VIEW Exam: XR - ABDOMEN 2 VIEWS Reason for exam: Nausea, constipation/diarrhe a for one week, chronic back pain Prior comparative studies: None Findings: Large amount of stool is present throughout the colon. No free air is apparent. No small bowel dilatation is identified. Calcification projects over the right iliac wing most likely representing GI contents, calcified lymph node or within the bone itself. However, this location could also represent an appendicolith. Advanced degenerative change of the lumbar spine is present. IMPRESSION: 1. Substantial stool retention in the colon. 2. Mildly indeterminate calcification of the right lower quadrant as described. Electronically Signed Jonnie Gleason M.D. 2023-11-10 12:13:58 Normal Not Available XR CHEST 2 Von 01-27-2022 XR CHEST 2 V EXAMINATION: XR CHEST 2 V HISTORY: Pleuritic pain ; acute posterior lower right rib pain COMPARISON: XR chest 05/07/2020 FINDINGS: LUNGS: Expanded lungs with mild opacities stranding within lung bases, left greater than right. VASCULATURE: No increased pulmonary vasculature. PLEURA: No pneumothorax, effusion, or pleural thickening. CARDIAC: No cardiomegaly or cardiac silhouette abnormality. MEDIASTINUM: No visible mass or adenopathy. BONES: No fracture or visible bone lesion. OTHER: Negative. IMPRESSION: 1. Hyperexpanded lungs suggestive COPD. 2. Mild bibasilar atelectasis versus infiltrates. 3. No visible rib fracture. Electronically authenticated by: VANESSA HOROWITZ Date: 2022-01-27 11:51 Normal [facility] XR TSPINE 3 VIEWSon 01-28-20 22 XR TSPINE 3 VIEWS EXAMINATION: XR TSPINE 3 VIEWS HISTORY: Pain in mid thoracic spine ; acute lower posterior right rib pain COMPARISON: No relevant comparison available. FINDINGS: BONES: Moderate right convex curvature of mid thoracic spine. Straightening of normal kyphotic curvature with posterior apex angulation at the thoracolumbar junction. No compression fracture or bone lesion. DISC SPACES: Multilevel moderate marked degenerative disc disease and degenerative endplate changes. PARASPINOUS: Negative. No paraspinous abnormality is seen. OTHER: Negative. IMPRESSION: 1. Dextroscoliosis with straightening of normal kyphotic curvature. 2. Multilevel moderate marked degenerative disc disease. 3. No acute fracture. Electronically authenticated by: VANESSA HOROWITZ Date: 2022-01-27 11:55 Normal [facility] XR KUB 1 VIEWon 07-07-2021 XR KUB 1 VIEW EXAMINATION: XR KUB 1 VIEW HISTORY: Kidney stone COMPARISON: XR KUB 07/04/2020 FINDINGS: KIDNEY/URETER - RIGHT: 4 mm calcification projecting over mid body of right kidney. KIDNEY/URETER - LEFT: No visible renal or ureteral calcifications. PELVIS: No visible ureteral stones. BOWEL: No abnormal dilation or deviation. BONES: No acute abnormality. OTHER: Negative. No abnormal gaseous collections. IMPRESSION: 1. Right nephrolithiasis; new versus not visible compared to prior study. Electronically authenticated by: VANESSA HOROWITZ Date: 2021-07-07 11:41 Normal [facility] Vital Signs Date Time Vital Sign Value Performing Clinician Facility 10-25-2024 10:36-0400 Body height 180.3 cm Ghazala Jeterdon Work Phone: [facility] 10-25-2024 10:36-0400 Body mass index (BMI) [Ratio] 26.33 kg/m2 Ghazala Mckinney DO Work Phone: [facility] 10-25-2024 10:36-0400 Body weight 85.64 kg Ghazala Mckinney DO Work Phone: [facility] 10-25-2024 10:36-0400 Diastolic blood pressure 86 mm[Hg] Ghazala Mckinney DO Work Phone: [facility] 10-25-2024 10:36-0400 Heart rate 90 /min Ghazala Mckinney DO Work Phone: [facility] 10-25-2024 10:36-0400 Systolic blood pressure 128 mm[Hg] Ghazala Mckinney DO Work Phone: [facility] 06-12-2024 09:31-0400 Body height 177.8 cm Rosalia Raymundo MD Work Phone: [facility] 06-12-2024 09:31-0400 Body mass index (BMI) [Ratio] 27.12 kg/m2 Rosalia Raymundo MD Work Phone: [facility] 06-12-2024 09:31-0400 Body weight 85.73 kg Rosalia Raymundo MD Work Phone: [facility] 06-12-2024 09:31-0400 Diastolic blood pressure 82 mm[Hg] Rosalia Raymundo MD Work Phone: [facility] 06-12-2024 09:31-0400 Heart rate 94 /min Rosalia Raymundo MD Work Phone: [facility] 06-12-2024 09:31-0400 SaO2% (BldA) [Mass fraction] 94 % Rosalia Raymundo MD Work Phone: [facility] 06-12-2024 09:31-0400 Systolic blood pressure 122 mm[Hg] Rosalia Raymundo MD Work Phone: [facility] 01-18-2024 13:21-0500 Body height 177.8 cm Tonya Hemmer PA Work Phone: [facility] 01-18-2024 13:21-0500 Body mass index (BMI) [Ratio] 25.83 kg/m2 Tonya Hemmer PA Work Phone: [facility] 01-18-2024 13:21-0500 Body weight 81.65 kg Tonya Hemmer PA Work Phone: [facility] 01-18-2024 13:21-0500 Diastolic blood pressure 68 mm[Hg] Tonya Hemmer PA Work Phone: [facility] 01-18-2024 13:21-0500 Heart rate 97 /min Tonya Hemmer PA Work Phone: [facility] 01-18-2024 13:21-0500 Respiratory rate 16 /min Tonya Hemmer PA Work Phone: [facility] 01-18-2024 13:21-0500 SaO2% (BldA) [Mass fraction] 97 % Tonya Hemmer PA Work Phone: [facility] 01-18-2024 13:21-0500 Systolic blood pressure 100 mm[Hg] Tonya Hemmer PA Work Phone: [facility] 11-10-2023 11:28-0400 Body height 177.8 cm Beverly Hansen SPECIAL LIBRARIAN Work Phone: [facility] 11-10-2023 11:28-0400 Body mass index (BMI) [Ratio] 26.54 kg/m2 Beverly Hansen SPECIAL LIBRARIAN Work Phone: [facility] 11-10-2023 11:28-0400 Body weight 83.92 kg Beverly Espinalvely SPECIAL LIBRARIAN Work Phone: [facility] 11-10-2023 11:28-0400 Diastolic blood pressure 72 mm[Hg] Beverly Espinalvely SPECIAL LIBRARIAN Work Phone: [facility] 11-10-2023 11:28-0400 Heart rate 80 /min Beverly [place] SPECIAL LIBRARIAN Work Phone: [facility] 11-10-2023 11:28-0400 SaO2% (BldA) [Mass fraction] 96 % Beverly Hansen SPECIAL LIBRARIAN Work Phone: [facility] 11-10-2023 11:28-0400 Systolic blood pressure 120 mm[Hg] Beverly Hansen SPECIAL LIBRARIAN Work Phone: [facility] 07-29-2022 14:07-0400 Blood Pressure Location MALCOM CORDELL [facility] 07-29-2022 14:07-0400 Diastolic blood pressure 80 mm[Hg] MALCOM CORDELL [facility] 07-29-2022 14:07-0400 Heart rate 100 /min MALCOM CORDELL [facility] 07-29-2022 14:07-0400 Systolic blood pressure 115 mm[Hg] MALCOM CORDELL [facility] 07-23-2021 14:21-0400 Blood Pressure Location MALCOM CORDELL [facility] 07-23-2021 14:21-0400 Diastolic blood pressure 85 mm[Hg] MALCOM CORDELL [facility] 07-23-2021 14:21-0400 Heart rate 98 /min MALCOM CORDELL [facility] 07-23-2021 14:21-0400 Systolic blood pressure 128 mm[Hg] MALCOM LANDA [facility] Encounters Encounter Date Encounter Type Care Provider Facility Start: 10-27-2024 End: 10-27-2024 Telephone encounter Tonya ERICKSON Work Phone: [facility] Start: 10-26-2024 End: 10-26-2024 Telephone encounter Kalyn Juan Diego VALDEZ Work Phone: [facility] Start: 10-26-2024 End: 10-26-2024 Patient encounter procedure Rosalia Raymundo MD Work Phone: [facility] Comment on above: Dysuria; Urgency of urination; Hematuria, unspecified type Start: 10-26-2024 End: 10-26-2024 ambulatory ROSALIA RAYMUNDO Not Available Start: 10-25-2024 Encounter for preprocedural cardiovascular examination [facility] Start: 10-25-2024 End: 10-25-2024 Office consultation new/estab patient 60 min Ghazala Mckinney DO Work Phone: [facility] Comment on above: Hyperlipidemia, unsp ecified hyperlipidemia type; BMI 26.0-26.9,adult; Former smoker; Pre-operative cardiovascular examination Start: 10-25-2024 End: 10-25-2024 Patient encounter status Ghazala Jetervincenzo OHARA Work Phone: [facility] Work Phone: Start: 10-25-2024 End: 10-25-2024 ambulatory [facility] Start: 10-25-2024 End: 10-25-2024 Encounter for preprocedural cardiovascular examination [facility] Start: 10-24-2024 End: 10-25-2024 Clinisync Result Encounter Generic External Data Provider [facility] Unsolicited Start: 10-24-2024 End: 10-25-2024 Clinisync Result Encounter Generic External Data Provider [facility] External [facility] Unsolicited Start: 10-17-2024 End: 10-17-2024 ambulatory Luis R NILL Facility:[facility] Start: 10-17-2024 End: 10-17-2024 Patient encounter procedure Luis R NILL [facility] Start: 09-19-2024 End: 09-19-2024 ambulatory Luis R NILL Facility:[facility] Start: 09-19-2024 End: 09-19-2024 Patient encounter procedure [facility] Start: 09-11-2024 ambulatory Luis NILL Facility:[facility] Start: 09-07-2024 ambulatory Luis NILL Facility:[facility] Start: 09-01-2024 End: 09-04-2024 Telephone encounter Rosalia Raymundo MD Work Phone: [facility] Comment on above: Referral Start: 06-12-2024 End: 06-12-2024 Bamboo flowsheet Rosalia Raymundo MD Work Phone: [facility] Start: 06-12-2024 End: 06-12-2024 Bamboo flowsheet Rosalia Raymundo MD Work Phone: [facility] Start: 06-12-2024 End: 06-12-2024 Assay of hemosiderin, quant Rosalia Raymundo MD Work Phone: [facility] Start: 06-12-2024 End: 06-12-2024 Patient encounter procedure Rosalia Raymundo MD Work Phone: [facility] Comment on above: Routine general medi bang examination at [facility] care facility (Primary Dx); Calculus of kidney; 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); Medicare annual wellness visit, subsequent Start: 06-12-2024 End: 06-12-2024 ambulatory ROSALIA RAYMUNDO Not Available Start: 01-18-2024 End: 01-18-2024 Bamboo flowsheet Tonya Savage PA Work Phone: [facility] Start: 01-18-2024 End: 01-18-2024 Bamboo flowsheet Tonya Savage PA Work Phone: [facility] Start: 01-18-2024 End: 01-18-2024 ambulatory TONYA SAVAGE Not Available Start: 01-18-2024 End: 01-18-2024 Office outpatient visit 25 minutes Tonya Savage PA Work Phone: [facility] Comment on above: Localized swelling o f left lower leg (Primary Dx); Eczema, unspecified type; Coronary artery disease involving [place] coronary artery of [place] heart without angina pectoris ([facility] Start: 11-10-2023 End: 11-10-2023 ambulatory BEVERLY HANSEN Not Available Start: 11-10-2023 End: 11-10-2023 Office outpatient visit 25 minutes Beverly Hansen SPECIAL LIBRARIAN Work Phone: [facility] Comment on above: Nausea (Primary Dx); Diarrhea, unspecified type; Hypokalemia; Impaired fasting glucose Start: 11-10-2023 End: 11-10-2023 ambulatory BEVERLY HANSEN Not Available Start: 04-26-2023 Patient encounter procedure Beverly Hansen SPECIAL LIBRARIAN Work Phone: [facility] Start: 07-29-2022 End: 07-29-2022 Patient encounter procedure MALCOM LANDA [facility] Start: 01-27-2022 End: 01-28-2022 ambulatory BEVERLY HANSEN Facility: Start: 07-23-2021 End: 07-23-2021 Patient encounter procedure MALCOM LANDA [facility] Start: 07-07-2021 End: 07-08-[address] DERRICK BUTLER Facility:[facility] Procedures Date Procedure Procedure Detail Performing Clinician Start: 10-26-2024 Urnls dip stick/tabl et rgnt non-auto w/o micrscp Rosalia Raymundo MD Work Phone: Start: 10-25-2024 Ecg routine ecg w/le ast 12 lds w/i&r Ghazala Kate Mckinney DO Work Phone: Start: 10-24-2024 XR CHEST 2V Generic Ex ternal Data Provider Start: 10-24-2024 ALL CBC WITH AUTO DIFF Generic External Data Provider Start: 10-24-2024 ECG 12-LEAD Generic Ex ternal Data Provider Start: 11-10-2023 Hemoglobin glycosylated a1c Beverly Hansen SPECIAL LIBRARIAN Work Phone: Start: 07-07-[address] MARGARITA BUTLER Comment on above: Performed By: #### P SAD #### [facility] [address] [place] [address] Dr. Nick Mcqueen Start: 07-08-2017 Transurethral prostatectomy MALCOM CORDELL Start: 06-29-2017 Cystoscope, device (physical object) MALCOM LANDA Start: 06-29-2017 Urodynamic studies JOSEPH MAURICE CORDELL Start: 02-22-1999 Angioplasty of blood vessel Luis ALSTON Start: 02-22-1999 Coronary artery sten t (physical object) Luis ALTSON Appendectomy MALCOMLETITIA ARORARY Arthroscopy of knee Luis ALSTON Back Surgery MALCOM LANDA Biopsy of prostate Luis OBRIEN Colonoscopy MALCOM ARORARY Colonoscopy Luis ALSTON Extracorporeal shock wave lithotripsy of ureter MALCOM LANDA Repair of left ingui nal hernia Luis ALSTON Tonsillectomy Luis VILLEGASTrevor Vasectomy Luis VILLEGASTrevor Plan of Treatment Date Care Activity Detail Author Start: 10-13-2028 DTaP/Tdap/Td Vaccine s (3 - Td or Tdap) DTaP/Tdap/Td Vaccines (3 - Td or Tdap) [facility] Start: 06-12-2025 Medicare Annual Well ness (AWV) Medicare Annual Wellness (AWV) [facility] Start: 06-02-2025 Urine screening for protein Diabetes: Urine Protein Screening [facility] Start: 10-23-2024 COVID-19 Vaccine () COVID-19 Vaccine () [facility] Start: 10-23-2024 Influenza vaccination Influenza Vacc ine (#1) [facility] Start: 09-01-2024 Hemoglobin A1c measurement Diabetes: Hemoglobin A1C [facility] Start: 06-12-2024 End: 06-12-2024 Patient encounter procedure 06/12/2024 9:30 AM EDT Office Visit [facility] [address] [facility] [address] [place] [id number] Rosalia Raymundo MD [address] [facility] [address] [place] [address] Arrived [facility] Comment on above: Arrived Start: 04-25-2024 Medicare Annual Well ness (AWV) Medicare Annual Wellness (AWV) [facility] Start: 11-10-2023 End: 11-09-2024 Comprehensive metabolic 2000 panel - Serum or Plasma Comprehensive metabolic panel Lab Routine Diarrhea, unspecified type Hypokalemia Expected: 11/10/2023 (Approximate), Expires: 11/09/2024 [facility] Work Phone: Comment on above: Expected: 11/10/2023 (Approximate), Expires: 11/09/2024 Start: 11-10-2023 End: 11-09-2024 XR Abdomen Single view XR ABDOMEN 2 VIEW Imaging Routine Nausea Diarrhea, unspecified type Expected: 11/10/2023, Expires: 11/09/2024 [facility] Comment on above: Expected: 11/10/2023 , Expires: 11/09/2024 Start: 10-24-2023 Influenza vaccination Influenza Vacc ine (#1) [facility] Start: 10-14-2022 Medicare Annual Well ness (AWV) Medicare Annual Wellness (AWV) [facility] Start: 09-14-2022 RSV High Risk: (Elde rly (60+) or Population) (1 - 1-dose 75+ series) RSV High Risk: (Elderly (60+) or Population) (1 - 1-dose 75+ series) [facility] Start: 09-14-1997 Zoster Vaccines (1 of 2) Zoste r Vaccines (1 of 2) [facility] Start: 09-14-1965 Hepatitis C screening Hepatitis C Sc reening [facility] Start: 09-14-1957 Glaucoma screening Diabetes: R etinopathy Screening [facility] Start: 1945 Lipid panel Lipid Panel [facility] Start: 1945 Medicare Annual Well ness Visit Medicare Annual Wellness Visit (AWV) [facility] URINARY TRACT INFECT ION (HTRX) URINARY TRACT INFECTION (HTRX) Lab Routine Hematuria, unspecified type Ordered: 10/26/2024 [facility] Work Phone: Comment on above: Ordered: 10/26/2024 Immunizations Immunization Date Immunization Notes Care Provider [facility] 12-09-2023 Seasonal trivalent influenza vaccine, adjuvanted, preservative free Tonya ERICKSON Work Phone: [facility] 12-09-2023 influenza virus vaccine, unspecified formulation Rosalia Raymundo MD Work Phone: [facility] 01-13-2023 Influenza, Seasonal, Quadrivalent, Adjuvanted Beverly Hansen SPECIAL LIBRARIAN Work Phone: [facility] 01-13-2023 influenza virus vaccine, unspecified formulation Beverly Hansen NP Work Phone: [facility] 12-22-2021 influenza virus vaccine, unspecified formulation MALCOM CORDELL [facility] 12-22-2021 Influenza, High-dose Seasonal, Quadrivalent, Preservative Free Beverly [place] SPECIAL LIBRARIAN Work Phone: [facility] 03-26-2021 influenza virus vaccine, unspecified formulation MALCOM ARORARY [facility] 03-26-2021 influenza, high dose seasonal, preservative-free Beverly [place] SPECIAL LIBRARIAN Work Phone: [facility] 03-26-2021 Influenza, High-dose Seasonal, Quadrivalent, Preservative Free Beverly [place] SPECIAL LIBRARIAN Work Phone: [facility] 05-23-2020 SARS-CoV-2 (COVID-19 ) mRNA-5253 vaccine MALCOM LANDA [facility] Comment on above: Result Comment: pt r jesse J&J. 01-16-2020 influenza virus vaccine, unspecified formulation MALCOM LANDA [facility] 01-16-2020 influenza, injectabl e, quadrivalent, preservative free Beverly Tyrone SPECIAL LIBRARIAN Work Phone: [facility] 01-16-2020 Influenza, Seasonal, Quadrivalent, Adjuvanted Beverly Tyrone SPECIAL LIBRARIAN Work Phone: [facility] 02-09-2019 influenza virus vaccine, unspecified formulation MALCOM CORDELL [facility] 02-09-2019 Influenza, High-dose Seasonal, Quadrivalent, Preservative Free Beverly Tyrone SPECIAL LIBRARIAN Work Phone: [facility] 10-13-2018 tetanus toxoid, redu kim diphtheria toxoid, and acellular pertussis vaccine, adsorbed Beverly [place] SPECIAL LIBRARIAN Work Phone: [facility] 04-27-2018 pneumococcal conjuga te vaccine, 13 valent MALCOM CORDELL [facility] 12-29-2017 influenza virus vaccine, unspecified formulation MALCOM CORDELL [facility] 12-29-2017 Influenza, High-dose Seasonal, Quadrivalent, Preservative Free Beverly [place] SPECIAL LIBRARIAN Work Phone: [facility] 03-08-2017 influenza virus vaccine, unspecified formulation MALCOM ARORARY [facility] 03-08-2017 influenza, injectabl e, quadrivalent, preservative free Beverly [place] SPECIAL LIBRARIAN Work Phone: [facility] 03-08-2017 pneumococcal polysaccharide vaccine, 23 valent MALCOM CORDELL [facility] 11-11-2015 influenza virus vaccine, unspecified formulation MALCOM CORDELL [facility] 11-11-2015 influenza, injectabl e, quadrivalent, preservative free Beverly [place] SPECIAL LIBRARIAN Work Phone: [facility] 12-17-2014 influenza, injectabl e, quadrivalent, preservative free Beverly [place] SPECIAL LIBRARIAN Work Phone: [facility] 03-16-2013 seasonal influenza, intradermal, preservative free Beverly [place] SPECIAL LIBRARIAN Work Phone: [facility] 03-02-2012 tetanus toxoid, redu kim diphtheria toxoid, and acellular pertussis vaccine, adsorbed Beverly [place] SPECIAL LIBRARIAN Work Phone: [facility] NEGATED: Highlighted row has not occurred!07-23-2021 SARS-CoV-2 mRNA (tozinameran 5y-11y) vaccine MALCOM CORDELL [facility] Payers Date Payer Category Payer Private Health Insurance [id number] 2018 Medicare [id number] 1959 Medicare [id number] 1959 Private Health Insurance [facility] [id number] 1945 Unknown [id number] [id number] 1947 Unknown [id number] 2.16.84 [id number] 1947 Unknown [id number] 2.16.8 [id number] 1947 Unknown [id number] 2.16.8 [id number] 1947 Unknown [id number] 1947 Unknown [id number] 2.16.8 [id number] 1947 Unknown [id number] 2.16.84 [id number] 1947 Unknown [id number] 2.16.84 [id number] 1947 Unknown [id number] 2.16.84 [id number] 1947 Unknown [id number] Social History Date Type Detail Facility Start: 02-20-2019 End: 02-15-2023 Tobacco smoking status Never smoked tobacco (finding) [facility] Start: 01-17-2022 Tobacco smoking status Never [facility] Start: 01-18-2024 End: 06-12-2024 Sex Assigned At Male [facility] Start: 01-18-2024 End: 06-12-2024 Alcoholic beverage intake Lifetime non-drinker (finding) [facility] Start: 01-18-2024 End: 06-12-2024 History of Social function [facility] Start: 03-10-2023 Alcohol Comment caffeine: no [facility] Start: 1945 Sex assigned at Not on file [facility] Start: 09-19-2024 End: 10-25-2024 Tobacco smoking status Ex-smoker (finding) [facility] Sexual Orientation [facility] Start: 06-05-2009 Sex Male (finding) [facility] History of tobacco use Current smoker [facility] Work Phone: History of tobacco use Cigarette Smoker [facility] Work Phone: Start: 10-25-2024 Tobacco use and exposure Smoke less tobacco non-user [facility] Work Phone: Start: 10-25-2024 Alcoholic beverage intake Ex-drinker (finding) [facility] Work Phone: Functional Status Date Assessment Result Facility 06-12-2024 Patient Health Quest ionnaire 2 item (PHQ-2) [Reported] [facility] 07-29-2022 Functional Status N/A [facility] Clinical Notes 07-23-2021 to 10-27-2024 Telephone Encounter - DRE Katz - 10/27/2024 1:49 PM EDTTelephone Encounter - DRE Katz - 10/27/2024 1:49 PM EDTTelephone Encounter - DRE Katz - 10/27/2024 1:05 PM EDT Note Date & Type Note Facility 10-27-2024 Telephone encounter Note Called and informed pt. [facility] 10-27-2024 Miscellaneous Notes Called and informed pt. Please let pt know that his urine culture showed a type of bacteria that Bactrim does not cover well. I sent in an alternative antibiotic for him to start. He can stop the Bactrim. documented in this encounter [facility] 10-27-2024 Telephone encounter Note Please let pt know that his urine culture showed a type of bacteria that Bactrim does not cover well. I sent in an alternative antibiotic for him to start. He can stop the Bactrim. [facility] 10-26-2024 Telephone encounter Note Pt stopped in for urine dipstick. Please see nurse visit note from today. I did send his urine for culture also. [facility] 10-26-2024 Miscellaneous Notes Pt stopped in for urine dipstick. Please see nurse visit note from today. I did send his urine for culture also. documented in this encounter [facility] 10-26-2024 History of Presen t illness Narrative Pt stopped in to give urine sample. He admits to dysuria and urgency. Urine was sent out for culture. documented in this encounter [facility] 10-25-2024 History of Presen t illness Narrative Cardiology Consultation- New Consult Reason for referral: Preoperative clearance Chief Complaint Patient presents with New Patient Visit Pre-op Clearance Hernia [id number] 11/01/24 HPI: Claudine Aguilera is a 79 y.o. male seen in cardiology consultation at request of Dr. Alston, for preoperative risk assessment and clearance prior to right inguinal hernia surgery. The surgery itself is exceedingly low risk. Patient has no history of myocardial infarction, revascularization, stroke, thromboembolic or bleeding disorder Patient historically was previously followed by Dr. Valenzuela from 2004 through 2010. He had heart catheterization and several stress imaging procedures performed during that time. 2006 heart catheterization revealed minimal disease and normal ventricular function. Last myocardial perfusion stress test at [facility] was performed this past January 2024 and [...] Scribe Attestation By signing my name below, IKristine LPN, Scribe attest that this documentation has been prepared under the direction and in the presence of Ghazala Mckinney DO. Provider Attestation - Scribe documentation All medical record entries made by the Scribe were at my direction and personally dictated by me. I have reviewed the chart and agree that the record accurately reflects my personal performance of the history, physical exam, discussion and plan. [1] Family History Problem Relation Name Age of Onset Heart disease Mother Heart attack Mother Mental illness Sister Heart disease Brother Heart attack Brother documented in this encounter [facility] Work Phone: 10-25-2024 Instructions Kristine Whelan LPN - 10/25/2024 10:20 AM [...] -25.8 Lbs Provided instructions on dietary changes. The following attachments cannot be sent through Care Everywhere.Heart Healthy Diet (Croatian)documented in this encounter [facility] Work Phone: 09-19-2024 Note General Surgery Offi ce/Clinic Note Chief Complaint consultation for hernia HPI Staff 79 year old male presents on consultation from Dr. Raymundo for right inguinal hernia. Patient reports noting bulge sometime ago . He is unable to state an actual time frame. He does not believe bulge has increased in size. He is unsure if bulge reduces. Denies pain or discomfort. Denies nausea, vomiting or bowel changes. No imaging completed. History of Present Illness 79 yo male with h/o CAD, DMII, hypercholesterolemia, asthma, nephrolithiasis, BPH, bilateral hydroceles, referred for right inguinal hernia; patient reports hernia there for several years, was found on exam, no spymptoms, no skin changes, no N/V or bowel changes;patient saw Dr Gong 04/2023, found to have reducible right inguinal hernia at that time; patient had seen Dr Galloway in [place] prior to that; patient did not want surgery at that time, and still is not interested in surgery; abd operations significant for appendectomy and repair of left inguinal hernia; no asa or NSAID use; no tobacco use. Review of Systems PHQ Score Initial Depression Screen Score: 0 SCORE ROS - Provider Constitutional: no fever, no sweats, no weight loss. Eyes: yes glasses, no blurred vision, no visual loss. ENMT: no dentures, no hoarseness, no swallowing difficulties, no hearing loss, no ear infection(s), no nose bleeds. Cardiovascular: normal blood pressure, no chest pain, regular heartbeat, no heart murmur. Respiratory: no shortness of breath, no cough, no asthma, no wheezing. Gastrointestinal: no nausea, no vomiting, no diarrhea, no constipation, no blood in stool, no change in bowel habits, no abdominal pain, no hepatitis. Genitourinary: no kidney stones, no urine infection, no dysuria. Musculoskeletal: no pain, no weakness. Skin: no changing moles, no rash, no skin lumps. Neurologic: no seizures, no epilepsy, no headache. Psychiatric: no emotional or psychiatric problem. Heme/Lymph: no bleeding problems, no anemia, no blood clots, no transfusions. Allergy/Immunologic: no swollen lymph nodes/glands, no IV drug abuse. Other: Additional ROS info: Except as noted in the above Review of Systems and in the History of Present Illness, all other systems have been reviewed and are negative or noncontributory. Physical Exam Vitals & Measurements HR: 92(Peripheral) RR: 16 BP: 118/81 HT: 177.8 cm HT: 70 in WT: 86.9 kg WT: 191.581 lb BMI: 27.49 HEENT: normal conjunctiva, sclera clear, no scleral icterus, EOM intact, PERRLA, oral mucosa moist without lesions. Neck: trachea midline, no mass, symmetric, no thyromegaly or nodules, no adenopathy Respiratory: lungs CTA, respirations non labored. Cardiovascular: regular rate and rhythm, no murmur, no pedal edema or varicosities. Gastrointestinal: soft, non distended, no tenderness, no masses, reducible right inguinal hernia, not extending into scrotum, well healed large RLQ transverse incision; diastasis recti yes, no hepatosplenomegaly; normal bs Musculoskeletal: normal gait, digits and nails without infection, nodes, cyanosis, clubbing. Skin: no rashes, no lesions, no ulcers, no subcutaneous nodules, induration. Psychiatric/Neuro: oriented to time, place, person, judgement normal, affect appropriate for age, insight intact, no focal deficits. Tests: , review of old records completed , Discussed surgical options, risks, and possible complications with patient. Assessment/Plan 1. Reducible right inguinal hernia (K40.90: Unilateral inguinal hernia, without obstruction or gangrene, not specified as recurrent) asymptomatic, patient does not do heavy lifting; not interested in surgical repair; discussed repair in detail, all questions answered; patient to call if hernia increases in size, or becomes symptomatic; signs/symptoms of incarceration/strangulation of hernia explained in detail, and patient understands that he should seek prompt medical evaluation if they were to occur. Follow-up No qualifying data available Problem List/Past Medical History Ongoing Asthma Atrophic testicle Benign localized hyperplasia of prostate with urinary obstruction Bilateral hydrocele BMI 27.0-27.9,adult BPH without obstruction/lower urinary tract symptoms CAD (coronary artery disease) Diabetes Elevated cholesterol Epididymo-orchitis Ex-smoker History of kidney stones Kidney cysts Overweight Reducible right inguinal hernia Urgency of urination Weak urinary stream Historical Hydrocele, encysted Procedure/Surgical History TURP - Transurethral resection of prostate (07/08/2017), Cystoscope (06/29/2017), Urodynamics (06/29/2017), Angioplasty (1999), Coronary artery stent (1999), Appendectomy, Arthroscopy of knee, Back Surgery, Biopsy of prostate, Colonoscopy, Colonoscopy, ESWL (extracorporeal shockwave lithotripsy) of ureteric calculus, Repair of left inguinal hernia, Tonsillectomy, Vasectomy. Medications atorvastatin 40 mg Tab, 40 m (more content not included)... [facility] Comment on above: Result Comment: Elec tronically Signed By: MOHIT VARNER, Luis Dempsey\Date and Time Signed: 09/19/24 12:21 EDT 09-01-2024 Telephone encounter Note Lm for pt to cb to verify this is for right inguinal hernia - can send referral after he verifies [facility] 09-01-2024 Miscellaneous Notes Lm for pt to cb to verify this is for right inguinal hernia - can send referral after he verifies Patient wants a referral sent to Dr. Alston out of [facility] for hernia surgery. documented in this encounter [facility] 09-01-2024 Telephone encounter Note Patient wants a referral sent to Dr. Alston out of [facility] for hernia surgery. 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 Images from the original note were not included. Subjective : Chief Complaint: Claudine Aguilera is an 78 y.o. male here for an annual wellness visit. I have reviewed and reconciled the history and medication list with the patient today. Current Outpatient Medications Medication Sig Dispense Refill atorvastatin (Lipitor) 40 MG tablet TAKE 1 TABLET BY MOUTH EVERY DAY 90 tablet 4 dapagliflozin (Farxiga) 10 MG Take 1 tablet (10 mg) by mouth in the morning. 30 tablet 11 Multiple Vitamin (MULTI VITAMIN DAILY PO) Take 1 tablet by mouth 1 (one) time each day potassium citrate CR (Urocit-K-15) 15 mEq ER tablet Take 1 tablet (15 mEq) by mouth in the morning and 1 tablet (15 mEq) before bedtime. 120 tablet 1 No current facility-administered medications for this visit. Review of Systems Constitutional: Negative for chills, fatigue, fever and unexpected weight change. Respiratory: Negative for cough and shortness of breath. Cardiovascular: Positive for chest pain. JOLT mostly No exertional CP Gastrointestinal: Negative for abdominal pain, blood in stool, constipation, diarrhea, nausea and vomiting. Genitourinary: Negative for dysuria, enuresis, frequency and hematuria. Musculoskeletal: Negative for back pain and gait problem. Neurological: Negative. Negative for dizziness, tremors, syncope, facial asymmetry and speech difficulty. Psychiatric/Behavioral: Negative for agitation, behavioral problems, confusion and dysphoric mood. The patient is not nervous/anxious. Was stressed about kid and living situation List of current healthcare providers: Patient Care Team: Rosalia Raymundo MD as PCP - General (Family Medicine) Rosalia Raymundo MD as PCP - ACO [employer] Medicare Annual Visit Over the past 2 weeks, how often have you been bothered by any of the following problems? Little interest or pleasure in doing things: Not at all Feeling down, depressed, or hopeless: Not at all Patient Health Questionnaire-2 Score: 0 Guillaume Fall Risk History of Falling, Immediate or Within 3 Months: No Health Risk Assessment Form Do you need help eating, bathing, using the toilet, dressing, or getting around your home?: No Can you prepare your own meals?: Yes Can you do your own housework without help?: Yes Can you shop for groceries or clothes without help?: Yes Do you exercise for about 20 minutes 3 or more days a week?: Yes How confident are you that you can control and manage most of your health problems?: Very confident Can you mange your money, credit cards and accounts, pay bills and taxes?: Yes Vision Screening: Yes, no gross abnormalities Hearing Screening: Yes, no gross abnormalities Cognitive Screening Self Assessment: No overt cognitive deficiency is apparent by direct observation Three Word Registration: Captain, Garden, Picture Clock Drawing: Normal Clock - 2 Three Word Recall: All 3 words correct - 3 Total Score (0-5 Points): 5 Pain Assessment Pain Score: 0 - No pain Advance Care Planning Do you have a living will?: No Do you have a medical power of service establishment attendant?: No Objective : BP 122/82 Pulse 94 Ht 5' 10 Wt 189 lb SpO2 94% BMI 27.12 kg/m No results found. Physical Exam Vitals reviewed. Constitutional: Appearance: Normal appearance. HENT: Head: Normocephalic. Cardiovascular: Rate and Rhythm: Normal rate and regular rhythm. Pulses: Normal pulses. Pulmonary: Effort: Pulmonary effort is normal. Breath sounds: Normal breath sounds. Neurological: General: No focal deficit present. Mental Status: He is alert and oriented to person, place, and time. Psychiatric: Mood and Affect: Mood normal. Telephone on 05/23/2024 Component Date Value Ref Range Status WHITE BLOOD CELL COUNT 06/02/2024 8.7 3.8 - 10.8 Thousand/uL Final RED BLOOD CELL COUNT 06/02/2024 5.16 4.20 - 5.80 Million/uL Final HEMOGLOBIN 06/02/2024 16.5 13.2 - 17.1 g/dL Final HEMATOCRIT 06/02/2024 49.2 38.5 - 50.0 % Final MCV 06/02/2024 95.3 80.0 - 100.0 fL Final MCH 06/02/2024 32.0 27.0 - 33.0 pg Final MCHC 06/02/2024 33.5 32.0 - 36.0 g/dL Final Comment: For adults, a slight decrease in the calculated MCHC value (in the range of 30 to 32 g/dL) is most likely not clinically significant; however, it should be interpreted with caution in correlation with other red cell parameters and the patient's clinical condition. RDW 06/02/2024 13.6 11.0 - 15.0 % Final PLATELET COUNT 06/02/2024 183 140 - 400 Thousand/uL Final MPV 06/02/2024 10.2 7.5 - 12.5 fL Final ABSOLUTE NEUTROPHILS 06/02/2024 5,237 1,500 - 7,800 cells/uL Final ABSOLUTE LYMPHOCYTES 06/02/2024 2,540 850 - 3,900 cells/uL Final ABSOLUTE MONOCYTES 06/02/2024 757 200 - 950 cells/uL Final ABSOLUTE EOSINOPHILS 06/02/2024 139 15 - 500 cells/uL Final ABSOLUTE BASOPHILS 06/02/2024 26 0 - 200 cells/uL Final NEUTROPHILS 06/02/2024 60.2 % Final LYMPHOCYTES 06/02/2024 29.2 % Final MONOCYTES 06/02/2024 8.7 % Final EOSINOPHILS 06/02/2024 1.6 % Final BASOPHILS 06/02/2024 0.3 % Final Hemoglobin A1C 06/02/2024 6.0 (H) <5.7 % of total Hgb Final Comment: For someone without known diabetes, a [...] A1c for diagnosis of diabetes for children. CHOLESTEROL, TOTAL 06/02/2024 156 <200 mg/dL Final HDL CHOLESTEROL 06/02/2024 44 > OR = 40 mg/dL Final TRIGLYCERIDES 06/02/2024 88 <150 mg/dL Final LDL-CHOLESTEROL 06/02/2024 94 mg/dL (calc) Final Comment: Reference range: <100 Desirable range <100 mg/dL for primary prevention; <70 mg/dL for patients with CHD or diabetic patients with > or = 2 CHD risk factors. LDL-C is now calculated using the Jozef-Renee calculation, which is a validated novel method providing better accuracy than the Friedewald equation in the estimation of LDL-C. Jozef SUNSHINE et al. PAN. 2013;310(19): 0472-9404 (http://education.[employer].com/faq/BDP752) CHOL/HDLC RATIO 06/02/2024 3.5 <5.0 (calc) Final NON HDL CHOLESTEROL 06/02/2024 112 <130 mg/dL (calc) Final Comment: For patients with diabetes plus 1 major ASCVD risk factor, treating to a non-HDL-C goal of <100 mg/dL (LDL-C of <70 mg/dL) is considered a therapeutic option. CREATININE, RANDOM URINE 06/02/2024 97 20 - 320 mg/dL Final ALBUMIN, URINE 06/02/2024 0.3 See Note: mg/dL Final Comment: Reference Range: Reference Range Not established ALBUMIN/CREATININE RATIO, RANDOM U* 06/02/2024 3 <30 mg/g creat Final Comment: The ADA defines abnormalities in albumin excretion as follows: Albuminuria Category Result (mg/g creatinine) Normal to Mildly increased <30 Moderately increased 30-299 Severely increased > OR = 300 The ADA recommends that at least two of three specimens collected within a 3-6 month period be abnormal before considering a patient to be within a diagnostic category. PSA, TOTAL 06/02/2024 0.70 < OR = 4.00 ng/mL Final Comment: The total PSA value from this assay system is standardized against the WHO standard. The test result will be approximately 20% lower when compared to the equimolar-standardized total PSA (Baylee Terri). Comparison of serial PSA results should be interpreted with this fact in mind. This test was performed using the Siemens chemiluminescent method. Values obtained from different assay methods cannot be used interchangeably. PSA levels, regardless of value, should not be interpreted as absolute evidence of the presence or absence of disease. Assessment/Plan : The following health maintenance schedule was reviewed with the patient and provided in printed form in the after visit summary: Health Maintenance Topic Date Due Medicare Annual Wellness (AWV) 10/14/2022 Influenza Vaccine Completed Pneumococcal Vaccine: 65+ Years Completed Colorectal Cancer Screening Discontinued Assessment/Plan Problem List Items Addressed This Visit Calculus of kidney Relevant Medications potassium citrate CR (Urocit-K-15) 15 mEq ER tablet Medicare annual wellness visit, subsequent Colonoscopy every 10 years or Cologuard every [...] Ultrasound of Aorta to screen for Anuerysm 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 Other Visit Diagnoses Routine general medical examination at health care facility - Primary Advance Care Planning Patient willing to discuss ACP. If in place, renew periodically. If not in place, recommend obtaining ACP. No orders of the defined types were placed in this encounter. Electronically signed by Rosalia Raymundo MD on June 12, 2024 documented in this encounter [facility] 01-18-2024 History of Presen t illness Narrative Images from the original note were not included. Subjective Patient ID: Claudine Aguilera is a 78 y.o. male who presents for Foot Swelling. -Patient is here with complaints of left foot swelling that started about 2 months ago. It was constant for few weeks, and then randomly resolved. Has a picture on his phone, ankle was significantly swollen. States it got ungodly huge. Denies any known injury. States was irritated when he walked on it while swollen. Went from fpc down his lower leg to his foot. No erythema of the left leg. States it felt sparkly, like it was jumping, or twitching. -Right leg has a spot on it that feels funny. Initially in the area he states the skin was , did get a scab on it, but now is just dry and itching, rough. It is a patch on the back of his right lower leg. If he scratches it, he states it feels like needles are sticking him. -States forever he has had intermittent chest pain and SOB. Denies any recent increase or change in symptoms. States he has had a cardiac work up in the past. Has extensive family history of heart attacks and heart disease. -States his insurance will not be covering [facility], it will be too expensive. Current Outpatient Medications on File Prior to Visit Medication Sig Dispense Refill atorvastatin (Lipitor) 40 MG tablet TAKE 1 TABLET BY MOUTH EVERY DAY 90 tablet 4 baclofen (Lioresal) 10 MG tablet TAKE 1 TABLET BY MOUTH EVERY MORNING 1 IN THE EVENING AND 1 BEFORE BEDTIME 270 tablet 1 Farxiga 10 MG TAKE 1 TABLET BY MOUTH EVERY DAY IN THE MORNING 30 tablet 2 Multiple Vitamin (MULTI VITAMIN DAILY PO) Take 1 tablet by mouth 1 (one) time each day potassium citrate CR (Urocit-K-15) 15 mEq ER tablet Take 1 tablet (15 mEq) by mouth in the morning and 1 tablet (15 mEq) before bedtime. 120 tablet 1 No current facility-administered medications on file prior to visit. I have reviewed and reconciled the history and medication list with the patient today. No Known Allergies Social History Tobacco Use Smoking status: Never Substance Use Topics Alcohol use: Never Comment: caffeine: no Drug use: Never Family History Problem Relation Name Age of Onset Heart disease Mother Cancer Father Past Medical History: Diagnosis Date H/O CT scan of brain 12/10/2018 No acute process Left Frontal scalp laceration History of abdominal ultrasound 04/28/2018 No aortic aneurysm History of CT scan 06/19/2017 Urinary retention, Moderate Degenerative Spondylosis S Shaped Curvature History of medical treatment 2010 Physical therapy Renal calculus or stone 07/29/2022 Past Surgical History: Procedure Laterality Date ANGIOPLASTY 1999 APPENDECTOMY BACK SURGERY 1999 COLONOSCOPY 2009 COLONOSCOPY 04/05/2012 CORONARY ANGIOPLASTY WITH STENT PLACEMENT 1999 HERNIA REPAIR Left KNEE SURGERY 1998 Arthroscopic knee OTHER SURGICAL HISTORY [place] POLYPECTOMY 2009 PROSTATE BIOPSY 2005 TONSILLECTOMY 1960 TRANSURETHRAL RESECTION OF PROSTATE 1970 VASECTOMY 1960 Visit Vitals BP 100/68 Pulse 97 Resp 16 Ht 5' 10 Wt 180 lb SpO2 97% BMI 25.83 kg/m Smoking Status Never BSA 2.01 m Review of Systems Constitutional: Negative for chills, fatigue and fever. Respiratory: Negative for cough, shortness of breath and wheezing. Cardiovascular: Negative for chest pain, palpitations and leg swelling. Gastrointestinal: Negative for abdominal pain, constipation, diarrhea, nausea and vomiting. Musculoskeletal: Positive for joint swelling. Skin: Positive for rash. Objective Physical Exam Constitutional: General: He is not in acute distress. Appearance: Normal appearance. HENT: Head: Normocephalic and atraumatic. Eyes: General: No scleral icterus. Cardiovascular: Rate and Rhythm: Normal rate and regular rhythm. Heart sounds: No murmur heard. Pulmonary: Effort: Pulmonary effort is normal. No respiratory distress. Breath sounds: Normal breath sounds. No wheezing, rhonchi or rales. Musculoskeletal: General: No swelling. Right foot: Normal range of motion and normal capillary refill. No swelling, tenderness or bony tenderness. Normal pulse. Left foot: Normal range of motion and normal capillary refill. No swelling, tenderness or bony tenderness. Normal pulse. Comments: Skin of bilateral feet warm and dry, intact. Skin: General: Skin is warm and dry. Findings: Rash present. No erythema. Comments: Irregular dry patch of skin right lower leg, posterior/superior aspect with mild hyperpigmentation, dry, flaky skin. No erythema, no drainage. Rough to the touch. Neurological: General: No focal deficit present. Mental Status: He is alert and oriented to person, place, and time. Psychiatric: Mood and Affect: Mood normal. Behavior: Behavior normal. Assessment/Plan Diagnoses and all orders for this visit: Localized swelling of left lower leg Discussed possibility of diabetic neurology vs electrolyte abnormalities as cause of the spark type discomfort he has been having. Discussed swelling with pt, he has none currently. Consider compression stockings, he declines at this time. Advised pt this is likely due to venous insufficiency. He does have varicosities. No signs of blood clot or current swelling so will hold off on imaging at this time. Eczema, unspecified type - triamcinolone (Kenalog) 0.1 % cream; Apply topically 2 (two) times a day for 14 days Possible eczema vs dry skin dermatitis - Triamcinolone called into [facility] in [place]. Start Triamcinolone cream as prescribed. Advised can take up to two weeks to see full effect. Can provide pt with referral to Dermatology for further evaluation if needed. Coronary artery disease involving [place] coronary artery of [place] heart without angina pectoris (CMS/HCC) Symptoms have not increased in frequency, but are concerning to patient. Advised pt at time of visit that I would review his previous cardiology testing and reach out to him. (Records were not available at time of visit) Of course if any worsening of symptoms he is to seek immediate re-evaluation in the ER. Provided pt with list of SGLT2 inhibitor class medications to check with his insurance to see if any are more affordable for him than the [facility]. No follow-ups on file. documented in this encounter [facility] 11-10-2023 History of Presen t illness Narrative Images from the original note were not included. Subjective Patient ID: Claudine Aguilera is a 78 y.o. male who presents for GI Problem. This started a week ago , this will come and go , states it is more diarrhea, mucus , some blood red Pt states 10 days ago he did get sick with nausea , wanted to gag but nothing happened GI Problem The primary symptoms include nausea, diarrhea and dysuria. The illness began more than 7 days ago. The onset was gradual. The problem has not changed since onset. Nausea began more than 1 week ago. The nausea is associated with eating. The nausea is exacerbated by food. The diarrhea began more than 1 week ago. The diarrhea is blood-tinged and mucous. The diarrhea occurs 2 to 4 times per day. The illness is also significant for bloating. Associated medical issues do not include hemorrhoids. Current Outpatient Medications on File Prior to Visit Medication Sig Dispense Refill quiNINE (Qualaquin) 324 MG capsule Take 324 mg by mouth every 8 (eight) hours atorvastatin (Lipitor) 40 MG tablet TAKE 1 TABLET BY MOUTH EVERY DAY 90 tablet 4 baclofen (Lioresal) 10 MG tablet TAKE 1 TABLET BY MOUTH EVERY MORNING 1 IN THE EVENING AND 1 BEFORE BEDTIME 270 tablet 1 Farxiga 10 MG TAKE 1 TABLET BY MOUTH EVERY DAY IN THE MORNING 30 tablet 2 Multiple Vitamin (MULTI VITAMIN DAILY PO) Take 1 tablet by mouth 1 (one) time each day potassium citrate CR (Urocit-K-15) 15 mEq ER tablet Take 1 tablet (15 mEq) by mouth in the morning and 1 tablet (15 mEq) before bedtime. 120 tablet 1 No current facility-administered medications on file prior to visit. I have reviewed and reconciled the history and medication list with the patient today. No Known Allergies Social History Tobacco Use Smoking status: Never Substance Use Topics Alcohol use: Never Comment: caffeine: no Drug use: Never Family History Problem Relation Name Age of Onset Heart disease Mother Cancer Father Past Medical History: Diagnosis Date H/O CT scan of brain 12/10/2018 No acute process Left Frontal scalp laceration History of abdominal ultrasound 04/28/2018 No aortic aneurysm History of CT scan 06/19/2017 Urinary retention, Moderate Degenerative Spondylosis S Shaped Curvature History of medical treatment 2011 Physical therapy Renal calculus or stone 07/29/2022 Past Surgical History: Procedure Laterality Date ANGIOPLASTY 1999 APPENDECTOMY BACK SURGERY 1999 COLONOSCOPY 2009 COLONOSCOPY 04/05/2012 CORONARY ANGIOPLASTY WITH STENT PLACEMENT 1999 HERNIA REPAIR Left KNEE SURGERY 1998 Arthroscopic knee OTHER SURGICAL HISTORY [place] POLYPECTOMY 2010 PROSTATE BIOPSY 2005 TONSILLECTOMY 1960 TRANSURETHRAL RESECTION OF PROSTATE 1970 VASECTOMY 1960 Visit Vitals Smoking Status Never Review of Systems Constitutional: Positive for appetite change. HENT: Negative. Eyes: Negative. Respiratory: Negative. Cardiovascular: Negative. Gastrointestinal: Positive for bloating, blood in stool, diarrhea and nausea. Genitourinary: Positive for dysuria. Musculoskeletal: Negative. Skin: Negative. Neurological: Negative. Psychiatric/Behavioral: Negative. All other systems reviewed and are negative. Objective Physical Exam Vitals reviewed. Constitutional: Appearance: Normal appearance. HENT: Head: Normocephalic. Mouth/Throat: Mouth: Mucous membranes are moist. Pharynx: Oropharynx is clear. Cardiovascular: Rate and Rhythm: Normal rate and regular rhythm. Pulmonary: Effort: Pulmonary effort is normal. Breath sounds: Normal breath sounds. Abdominal: General: Bowel sounds are decreased. There is distension. Palpations: Abdomen is soft. There is no mass. Tenderness: There is no abdominal tenderness. There is no guarding or rebound. Hernia: No hernia is present. Skin: General: Skin is warm and dry. Neurological: Mental Status: He is alert. Assessment/Plan Diagnoses and all orders for this visit: Nausea - XR ABDOMEN 2 VIEW; Future Await labwork. Await xray. The nausea may be related to the constipation. Diarrhea, unspecified type - Comprehensive metabolic panel; Future - XR ABDOMEN 2 VIEW; Future Await xray. Pt has not travelled anywhere. He is having 2-3 loose stools a day. He may be constipated. Hypokalemia - Comprehensive metabolic panel; Future Await lab Impaired fasting glucose - POCT Glycated hemoglobin, total Await A1C. A1C 5.6. Pt will continue with current diet. No follow-ups on file. documented in this encounter [facility] 07-29-2022 Hospital Discharg e instructions Patient Education 07/29/2022 14:35:12 Dietary Guidelines to Help Prevent Kidney Stones Dietary Guidelines to Help Prevent Kidney Stones Kidney stones are deposits of minerals and salts that form inside your kidneys. Your risk of developing kidney stones may be greater depending on your diet, your lifestyle, the medicines you take, and whether you have certain medical conditions. Most people can lower their chances of developing kidney stones by following the instructions below. Your dietitian may give you more specific instructions depending on your overall health and the type of kidney stones you tend to develop. What are tips for following this plan? Reading food labels Choose foods with no salt added or low-salt labels. Limit your salt (sodium) intake to less than 1,500 mg a day. Choose foods with calcium for each meal and snack. Try to eat about 300 mg of calcium at each meal. Foods that contain 200 500 mg of calcium a serving include: ?8 oz (237 mL) of milk, [id number]-[id number] milk, and calcium-fortifiedfruit juice. Calcium-fortified means that calcium has been added to these drinks. ?8 oz (237 mL) of kefir, yogurt, and soy yogurt. ?4 oz (114 g) of tofu. ?1 oz (28 g) of cheese. ?1 cup (150 g) of dried figs. ?1 cup (91 g) of cooked broccoli. ?One 3 oz (85 g) can of sardines or mackerel. Most people need 1,000 1,500 mg of calcium a day. Talk to your dietitian about how much calcium is recommended for you. Shopping Buy plenty of fresh fruits and vegetables. Most people do not need to avoid fruits and vegetables, even if these foods contain nutrients that may contribute to kidney stones. When shopping for convenience foods, choose: ?Whole pieces of fruit. ?Pre-made salads with dressing on the side. ?Low-fat fruit and yogurt smoothies. Avoid buying frozen meals or prepared deli foods. These can be high in sodium. Look for foods with live cultures, such as yogurt and kefir. Choose high-fiber grains, such as whole-wheat breads, oat bran, and wheat cereals. Cooking Do not add salt to food when cooking. Place a salt shaker on the table and allow each person to add his or her own salt to taste. Use vegetable protein, such as beans, textured vegetable protein (TVP), or tofu, instead of meat in pasta, casseroles, and soups. Meal planning Eat less salt, if told by your dietitian. To do this: ?Avoid eating processed or pre-made food. ?Avoid eating fast food. Eat less animal protein, including cheese, meat, poultry, or fish, if told by your dietitian. To do this: ?Limit the number of times you have meat, poultry, fish, or cheese each week. Eat a diet free of meat at least 2 days a week. ?Eat only one serving each day of meat, poultry, fish, or seafood. ?When you prepare animal protein, cut pieces into small portion sizes. For most meat and fish, one serving is about the size of the palm of your hand. Eat at least five servings of fresh fruits and vegetables each day. To do this: ?Keep fruits and vegetables on hand for snacks. ?Eat one piece of fruit or a handful of berries with breakfast. ?Have a salad and fruit at lunch. ?Have two kinds of vegetables at dinner. Limit foods that are high in a substance called oxalate. These include: ?Spinach (cooked), rhubarb, beets, sweet potatoes, and Bhut[place] chard. ?Peanuts. ?Potato chips, bulgarian fries, and baked potatoes with skin on. ?Nuts and nut products. ?Chocolate. If you regularly take a diuretic medicine, make sure to eat at least 1 or 2 servings of fruits or vegetables that are high in potassium each day. These include: ?Avocado. ?Banana. ?[place], prune, carrot, or tomato juice. ?Baked potato. ?Cabbage. ?Beans and split peas. Lifestyle Drink enough fluid to keep your urine pale yellow. This is the most important thing you can do. Spread your fluid intake throughout the day. If you drink alcohol: ?Limit how much you use to: ?0 1 drink a day for women who are not . ?0 2 drinks a day for men. ?Be aware of how much alcohol is in your drink. In the [place] one drink equals one 12 oz bottle of beer (355 mL), one 5 oz glass of wine (148 mL), or one 1 oz glass of hard liquor (44 mL). Lose weight if told by your health care provider. Work with your dietitian to find an eating plan and weight loss strategies that work best for you. General information Talk to your health care provider and dietitian about taking daily supplements. You may be told the following depending on your health and the cause of your kidney stones: ?Not to take supplements with vitamin C. ?To take a calcium supplement. ?To take a daily probiotic supplement. ?To take other supplements such as magnesium, fish oil, or vitamin B6. Take ntqd-zcg-oapxfvp and prescription medicines only as told by your health care provider. These include supplements. What foods should I limit? Limit your intake of the following foods, or eat them as told by your dietitian. Vegetables Spinach. Rhubarb. Beets. Canned vegetables. Pickles. Olives. Baked potatoes with skin. Grains Wheat bran. Baked goods. Salted crackers. Cereals high in sugar. Meats and other proteins Nuts. Nut butters. Large portions of meat, poultry, or fish. Salted, precooked, or cured meats, such as sausages, meat loaves, and hot dogs. Dairy Cheese. Beverages Regular soft drinks. Regular vegetable juice. Seasonings and condiments Seasoning blends with salt. Salad dressings. Soy sauce. Ketchup. Barbecue sauce. Other foods Canned soups. Canned pasta sauce. Casseroles. Pizza. Lasagna. Frozen meals. Potato chips. Telugu fries. The items listed above may not be a complete list of foods and beverages you should limit. Contact a dietitian for more information. What foods should I avoid? Talk to your dietitian about specific foods you should avoid based on the type of kidney stones you have and your overall health. Fruits Grapefruit. The item listed above may not be a complete list of foods and beverages you should avoid. Contact a dietitian for more information. Summary Kidney stones are deposits of minerals and salts that form inside your kidneys. You can lower your risk of kidney stones by making changes to your diet. The most important thing you can do is drink enough fluid. Drink enough fluid to keep your urine pale yellow. Talk to your dietitian about how much calcium you should have each day, and eat less salt and animal protein as told by your dietitian. This information is not intended to replace advice given to you by your health care provider. Make sure you discuss any questions you have with your health care provider. Document Revised: 10/20/2021 Document Reviewed: 10/20/2021 [employer] Patient Education 2022 [employer]. Follow Up Care 07/23/2021 14:33:07 With:MALCOM LANDA PA-C, URL Address: [address] [place] [address] When: Unknown [facility] 07-29-2022 Evaluation + Plan note Diagnostic Tests PendingPSA Total 07/29/22 [facility] 07-23-2021 Hospital Discharg e instructions Patient Education 07/23/2021 14:33:22 Hydrocele, Adult Hydrocele, Adult A hydrocele is a collection of fluid in the loose pouch of skin that holds the testicles (scrotum). This may happen because: The amount of fluid produced in the scrotum is not absorbed by the rest of the body. Fluid from the abdomen fills the scrotum. Normally, the testicles develop in the abdomen then move (drop) into to the scrotum before . The tube that the testicles travel through usually closes after the testicles drop. If the tube does not close, fluid from the abdomen can fill the scrotum. This is less common in adults. What are the causes? The cause of a hydrocele in adults is usually not known. However, it may be caused by: An injury to the scrotum. An infection (epididymitis). Decreased blood flow to the scrotum. Twisting of a testicle (testicular torsion). A defect. A tumor or cancer of the testicle. What are the signs or symptoms? A hydrocele feels like a water-filled balloon. It may also feel heavy. Other symptoms include: Swelling of the scrotum. The swelling may decrease when you lie down. You may also notice more swelling at night than in the morning. Swelling of the groin. Mild discomfort in the scrotum. Pain. This can develop if the hydrocele was caused by infection or twisting. The larger the hydrocele, the more likely you are to have pain. How is this diagnosed? This condition may be diagnosed based on: Physical exam. Medical history. You may also have other tests, including: Imaging tests, such as ultrasound. Blood or urine tests. How is this treated? Most hydroceles go away on their own. If you have no discomfort or pain, your health care provider may suggest close monitoring of your condition (called watch and wait or watchful waiting) until the condition goes away or symptoms develop. If treatment is needed, it may include: Treating an underlying condition. This may include using an antibiotic medicine to treat an infection. Surgery to stop fluid from collecting in the scrotum. Surgery to drain the fluid. Options include: ?Needle aspiration. A needle is used to drain fluid. However, the fluid buildup will come back quickly. ?Hydrocelectomy. For this procedure, an incision is made in the scrotum to remove the fluid sac. Follow these instructions at home: Watch the hydrocele for any changes. Take dget-vzv-wcubenr and prescription medicines only as told by your health care provider. If you were prescribed an antibiotic medicine, use it as told by your health care provider. Do not stop taking the antibiotic even if you start to feel better. Keep all follow-up visits as told by your health care provider. This is important. Contact a health care provider if: You notice any changes in the hydrocele. The swelling in your scrotum or groin gets worse. The hydrocele becomes red, firm, painful, or tender to the touch. You have a fever. Get help right away if you: Develop a lot of pain, or your pain becomes worse. Summary A hydrocele is a collection of fluid in the loose pouch of skin that holds the testicles (scrotum). Hydroceles can cause swelling, discomfort, and sometimes pain. In adults, the cause of a hydrocele usually is not known. However, it is sometimes caused by an infection or a rotation and twisting of the scrotum. Treatment is usually not needed. Hydroceles often go away on their own. If a hydrocele causes pain, treatment may be given to ease the pain. This information is not intended to replace advice given to you by your health care provider. Make sure you discuss any questions you have with your health care provider. Document Released: 07/29/2010 Document Revised: 02/19/2018 Document Reviewed: 02/19/2018 [employer] Patient Education 2020 [employer]. Follow Up Care 07/08/2020 11:16:43 With:MALCOM LANDA PA-C, URL Address: [address] [place] [address] When:1 year Comments:w/ KUB & PSA [facility] Evaluation + Plan note Future Appointments Appointment Date:07/29/2022 02:00:00 PM Scheduled Provider:MALCOM LANDA PA-C Location:[facility] Appointment Type:URO Office Visit Diagnostic Tests PendingPSA Total 07/23/21 [facility] Evaluation note Diagnosis Muscle ache- Primary Unspecified myalgia and myositis Screening for malignant neoplasm of prostate High cholesterol (CMS/HCC) Pure hypercholesterolemia Impaired fasting glucose Wellness examination Fatigue, unspecified type Neck sprain, initial encounter Right groin pain Abdominal pain, right lower quadrant Routine general medical examination at health care facility- Primary Routine general medical examination at a health care facility Impaired fasting glucose High cholesterol (CMS/HCC) Pure hypercholesterolemia Coronary artery disease involving [place] coronary artery of [place] heart without angina pectoris (CMS/HCC) Memory deficit Memory loss Right groin pain Abdominal pain, right lower quadrant Medicare annual wellness visit, subsequent Localized swelling of left lower leg- Primary Eczema, unspecified type Coronary artery disease involving [place] coronary artery of [place] heart without angina pectoris (CMS/HCC) [facility] Diagnosis Nausea- Primary Nausea alone Diarrhea, unspecified type Hypokalemia Hypopotassemia Impaired fasting glucose [facility]* Diagnosis Muscle ache- Primary Unspecified myalgia and myositis Screening for malignant neoplasm of prostate High cholesterol (CMS/HCC) Pure hypercholesterolemia Impaired fasting glucose Wellness examination Fatigue, unspecified type Neck sprain, initial encounter Right groin pain Abdominal pain, right lower quadrant Routine general medical examination at health care facility- Primary Routine general medical examination at a health care facility Impaired fasting glucose High cholesterol (CMS/HCC) Pure hypercholesterolemia Coronary artery disease involving [place] coronary artery of [place] heart without angina pectoris (CMS/HCC) Memory deficit Memory loss Right groin pain Abdominal pain, right lower quadrant Medicare annual wellness visit, subsequent Routine general medical examination at health care facility- Primary Routine general medical examination at a health care facility Calculus of kidney Type 2 diabetes mellitus with cardiac complication ([facility]/HCC) Medicare annual wellness visit, subsequent [facility]* Diagnosis Hyperlipidemia, unspecified hyperlipidemia type BMI 26.0-26.9,adult Former smoker Personal history of tobacco use, presenting hazards to health Pre-operative cardiovascular examination documented in this encounter [facility] Work Phone: Evaluation note* Diagnosis Muscle ache- Primary Unspecified myalgia and myositis Screening for malignant neoplasm of prostate High cholesterol Pure hypercholesterolemia Impaired fasting glucose Wellness examination Fatigue, unspecified type Neck sprain, initial encounter Right groin pain Abdominal pain, right lower quadrant Routine general medical examination at [facility] care facility- Primary Routine general medical examination at a [facility] facility Impaired fasting glucose High cholesterol Pure hypercholesterolemia Coronary artery disease involving [place] coronary artery of [place] heart without angina pectoris Memory deficit Memory loss Right groin pain Abdominal pain, right lower quadrant Medicare annual wellness visit, subsequent Routine general medical examination at [facility] care facility- Primary Routine general medical examination at a [facility] Calculus of kidney Type 2 diabetes mellitus with cardiac complication ([facility]) Medicare annual wellness visit, subsequent Dysuria Urgency of urination Hematuria, unspecified type [facility] Diagnosis Muscle ache- Primary Unspecified myalgia and myositis Screening for malignant neoplasm of prostate High cholesterol Pure hypercholesterolemia Impaired fasting glucose Wellness examination Fatigue, unspecified type Neck sprain, initial encounter Right groin pain Abdominal pain, right lower quadrant Routine general medical examination at [facility] care facility- Primary Routine general medical examination at a [facility] care facility Impaired fasting glucose High cholesterol Pure hypercholesterolemia Coronary artery disease involving [place] coronary artery of [place] heart without angina pectoris Memory deficit Memory loss Right groin pain Abdominal pain, right lower quadrant Medicare annual wellness visit, subsequent Routine general medical examination at [facility] care facility- Primary Routine general medical examination at a [facility] care facility Calculus of kidney Type 2 diabetes mellitus with cardiac complication (HCC) Medicare annual wellness visit, subsequent Acute cystitis without hematuria- Primary [facility]* Diagnosis Muscle ache- Primary Unspecified myalgia and myositis Screening for malignant neoplasm of prostate High cholesterol Pure hypercholesterolemia Impaired fasting glucose Wellness examination Fatigue, unspecified type Neck sprain, initial encounter Right groin pain Abdominal pain, right lower quadrant Routine general medical examination at health care facility- Primary Routine general medical examination at a [facility] care facility Impaired fasting glucose High cholesterol Pure hypercholesterolemia Coronary artery disease involving [place] coronary artery of [place] heart without angina pectoris Memory deficit Memory loss Right groin pain Abdominal pain, right lower quadrant Medicare annual wellness visit, subsequent Routine general medical examination at [facility] care facility- Primary Routine general medical examination at a [facility] care [facility] Calculus of kidney Type 2 diabetes mellitus with cardiac complication (HCC) Medicare annual wellness visit, subsequent Acute cystitis with hematuria- Primary [facility] Narrative No data available for this section [facility] Hospital Discharge instructions No data available for this section [facility] General Surgery [place] Progress note No data available for this section [facility] Summary Purpose Family History No Family History Records FoundNo Family History Records Found No data available for this section No data available for this section No Family History Records FoundNo Family History Records FoundNo Family History Records Found Advance Directives No Advanced Directives Records FoundNo Advanced Directives Records FoundNo Advanced Directives Records FoundNo Advanced Directives Records FoundNo Advanced Directives Records Found Additional Source Comments (unrecognized sect ion and content) No Status Records FoundNo Status Records FoundNo Status Records FoundNo Status Records FoundNo Status Records Found INFORMATION SOURCE (unrecogn ized section and content) DATE CREATED AUTHOR 01/31/2022 [facility] DATE CREATED AUTHOR AUTHOR'S ORGANIZ ATION 06/04/2024 [facility] DATE CREATED AUTHOR AUTHOR'S ORGANIZ ATION 10/18/2024 [facility] DATE CREATED AUTHOR AUTHOR'S ORGANIZ ATION 10/26/2024 [facility] DATE CREATED AUTHOR AUTHOR'S ORGANIZ ATION 10/28/2024 [facility] EPIC Patient Care team informatio n (unrecognized section and content) [employer]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 [place] [address] [place] [address] PCP - ACO Reach 07/16/22 Rosalia Raymundo MD 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 [place] [address] [place] [address] PCP - ACO Reach 07/16/22 Rosalia Raymundo MD 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 [place] [address] [place] [address] PCP - ACO Reach 07/16/22 Rosalia Raymundo MD 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 [place] [address] [place] [address] PCP - ACO Reach 07/16/22 Rosalia Raymnudo MD 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 [facility] [address] [place] [address] PCP - ACO Reach 07/16/22 Rosalia Raymundo MD 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 [facility] [address] [place] [address] PCP - ACO Reach 07/16/22 Rosalia Raymundo MD 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 [facility] [address] [place] [address] PCP - ACO Reach 07/16/22 Rosalia Raymundo MD [address] [facility] [address] [place] [address] PCP - General Family Medicine 06/30/22 [employer] Teacher Relationship Specialty Start Date End Date Rosalia Raymundo MD [address] [place] [address] [place] [address] PCP - ACO Reach 07/16/22 Rosalia Raymundo MD [address] [facility] [address] [place] [address] PCP - General Family Medicine 06/30/22 Reason for Visit (unrecogniz ed section and content) Reason Comments Foot Swelling Reason Comments GI Problem Reason Comments Medicare Annual Wellness Visit Rajindergladys mills Pt has a couple of patches on his skin he would like looked at Reason Onset Date Comments Referral 09/01/2024 Reason Comments New Patient Visit Pre-op Clearance Hernia [id number] cheduled 11/01/24 Specialty Diagnoses / Procedures Referred By Simeon mills Referred To Contact Diagnoses Pre-operative cardiovascular examination Procedures ECG 12 Lead Ghazala Mckinney, DO [address] [facility] [address] [place] [address] Phone: tel: fax: Referral ID Status Reason Start Date Expiration Date V isits Requested Visits Authorized [id number] Authorized 10/25/2024 10/25/2025 1 1 FOR RECORDS PERTAINING TO PATIENTS WHO ARE OR HAVE BEEN ENROLLED IN A CHEMICAL DEPENDENCY/SUBSTANCEABUSE PROGRAM, SOME INFORMATION MAY BE OMITTED. This clinical summary was aggregated from multiple sources. Caution should be exercised in using it in the provision of clinical care. This summary normalizes information from multiple sources, and as a consequence, information in this document may materially change the coding, format and clinical context of patient data. In addition, data may be omitted in some cases. CLINICAL DECISIONS SHOULD BE BASED ON THE PRIMARY CLINICAL RECORDS. [employer] provides no warranty or guarantee of the accuracy or completeness of information in this document.
[2024-11-01] MEDS: CEFAZOLIN SODIUM 2 GM/50 ML D5W PREMIX IV (10:29)
[2024-11-01] MEDS: CEFAZOLIN SODIUM 1,000 MG in 0.9 % SODIUM CHLORIDE 10 ML 10 MG IRR (11:01)
[2024-11-01] MEDS: BUPIVACAINE HCL 0.5% PF 50 MG/10 ML VIAL INJ (11:58)
--- NOTE | 2024-11-01 15:13 | RESP.RT ---
PEP done by nursing.
--- NOTE | 2024-11-01 15:38 | PC.NURSE ---
1513- Patient instructed on use of PEP device. Patient verbalized an understanding and demonstrated use without difficulty.
== END 2024-11-01 16:07 | disposition home or self-care (01) ==
LOC: SURGOUT 08:56
PROVIDERS: PCP Family Medicine; Visit Provider Surgery
PROC: (CPT 49505; principal; 2024-11-01 10:05)
DX: K40.90 Unilateral inguinal hernia, without obstruction or gangrene, not specified as recurrent (principal); I25.10 Atherosclerotic heart disease of native coronary artery without angina pectoris; E11.9 Type 2 diabetes mellitus without complications; E78.00 Pure hypercholesterolemia, unspecified; J45.909 Unspecified asthma, uncomplicated; Z87.442 Personal history of urinary calculi; N40.0 Benign prostatic hyperplasia without lower urinary tract symptoms; Z95.5 Presence of coronary angioplasty implant and graft; Z87.891 Personal history of nicotine dependence; Z90.49 Acquired absence of other specified parts of digestive tract; K21.9 Gastro-esophageal reflux disease without esophagitis
CPT/HCPCS: 49505; 36415; 64488; 82948; 94667; C1781; J0131; J0665; J0690; J1100; J1171; J1200; J1885; J2405; J2704; J3010